=== PATIENT | male | born 1950 | race Caucasian/White ===

== ENCOUNTER → 2016-04-29 | Outpatient (CLI) | payer MEDICARE ==
[~2016-04-29] MED LIST: LISI40TA PO; NITR1SUB3 SL; PHEN100C PO; PRAV20TA2 PO
[2016-04-29 13:35] LABS: AUTOMATED NEUTROPHIL # 3.7 TH/MM3 (1.8-7.7); BASOPHIL # 0.1 TH/MM3 (0-0.2); EOSINOPHIL # 0.5 TH/MM3 (0-0.4); EOSINOPHIL % 7.4 % (0.0-4.0); HEMATOCRIT 43.5 % (39.0-51.0); HEMO FLAGS DIFF FINAL; LYMPH % 25.5 % (9.0-44.0); LYMPHOCYTE # 1.7 TH/MM3 (1.0-4.8); MEAN CELL VOLUME 93.1 FL (80.0-100.0); MEAN CORPUSCULAR HEMOGLOBIN 31.4 PG (27.0-34.0); MEAN CORPUSCULAR HGB CONC 33.7 % (32.0-36.0); MONO % 11.3 % (0.0-8.0); NEUT % 54.8 % (16.0-70.0); PLATELET COUNT 346 TH/MM3 (150-450); RED BLOOD COUNT 4.67 MIL/MM3 (4.50-5.90); RED CELL DISTRIBUTION WIDTH 13.3 % (11.6-17.2); WHITE BLOOD COUNT 6.7 TH/MM3 (4.0-11.0)
--- NOTE | 2016-04-30 15:40 | EKG ---
Date Performed: 04/29/2016 Time Performed: 13:56:04 PTAGE: 66 years EKG: Sinus rhythm WITH FIRST DEGREE AV BLOCK ABNORMAL ECG PREVIOUS TRACING : 06/17/2012 16.14 Compared to prior tracing no significant change DOCTOR: Bria Bui Interpretating Date/Time 04/30/2016 15:39:06
== END ==
LOC: HCAV 13:07
PROVIDERS: ATTEND Ophthalmology
DX: Z01.810 Encounter for preprocedural cardiovascular examination (principal); I10 Essential (primary) hypertension; H25.12 Age-related nuclear cataract, left eye
CPT/HCPCS: 36415; 85025; 93005

== ENCOUNTER → 2016-06-23 | Outpatient (CLI) | payer MEDICARE ==
[2016-06-23 13:00] LABS: AUTOMATED NEUTROPHIL # 2.8 TH/MM3 (1.8-7.7); BASOPHIL # 0.1 TH/MM3 (0-0.2); BASOPHIL % 1.1 % (0.0-2.0); EOSINOPHIL # 0.5 TH/MM3 (0-0.4); EOSINOPHIL % 8.5 % (0.0-4.0); HEMATOCRIT 42.9 % (39.0-51.0); HEMO FLAGS DIFF FINAL; LYMPH % 32.3 % (9.0-44.0); LYMPHOCYTE # 1.9 TH/MM3 (1.0-4.8); MEAN CELL VOLUME 93.5 FL (80.0-100.0); MEAN CORPUSCULAR HEMOGLOBIN 31.8 PG (27.0-34.0); MONO % 9.9 % (0.0-8.0); NEUT % 48.2 % (16.0-70.0); PLATELET COUNT 359 TH/MM3 (150-450); RED BLOOD COUNT 4.59 MIL/MM3 (4.50-5.90); RED CELL DISTRIBUTION WIDTH 13.6 % (11.6-17.2); WHITE BLOOD COUNT 5.8 TH/MM3 (4.0-11.0)
== END ==
LOC: CLAB 12:35
PROVIDERS: ATTEND Ophthalmology
DX: H25.11 Age-related nuclear cataract, right eye (principal)
CPT/HCPCS: 36415; 85025

== ENCOUNTER 2016-10-08 13:49 | Emergency (ER) | payer MEDICARE ==
[~2016-10-08] VITALS: Ht 182.9 cm; Wt 73.0 kg
[2016-10-08 15:44] VITALS: BP 160/88; PULSE 68; RESP 16; TEMP 97.4; O2SAT 98
--- NOTE | 2016-10-08 16:14 | PD ---
HPI Chief Complaint: Musculoskeletal Complaint Time Seen by Provider: 15:45 Travel History International Travel<30 days: No Contact w/Intl Traveler<30days: No Traveled to known affect area: No History of Present Illness HPI 66-year-old male presents to the emergency room for evaluation of right volar wrist pain, redness, and swelling that started 2 days ago. Patient denies any trauma or injury. States pain is localized to the distal, volar wrist and radiates up his entire right upper extremity, into the axilla. Pain is worse when he puts pressure on the area. He denies shortness of breath, chest pain, or history of DVT or PE. He has limited range of motion of the right upper extremity due to a stroke several years ago. He is not on any blood thinners. PFSH Past Medical History Arthritis: Yes (DEGENERATIVE HIP) Heart Rhythm Problems: No Cancer: No Cardiovascular Problems: Yes (CHEST PAIN) High Cholesterol: Yes Chest Pain: Yes Congestive Heart Failure: No Cerebrovascular Accident: No Diminished Hearing: No Endocrine: No Genitourinary: No Headaches: No Hypertension: Yes Immune Disorder: No Implanted Vascular Access Dvce: No Musculoskeletal: No Neurologic: Yes Psychiatric: No Reproductive: No Respiratory: No Migraines: No Seizures: Yes Past Surgical History Abdominal Surgery: No Cardiac Surgery: No Ear Surgery: No Endocrine Surgery: No Eye Surgery: No Genitourinary Surgery: No Gynecologic Surgery: No Neurologic Surgery: Yes (PLATE ON SKULL 1969') Oral Surgery: Yes Thoracic Surgery: No Other Surgery: Yes Social History Alcohol Use: No Tobacco Use: No Substance Use: No Allergies-Medications (Allergen,Severity, Reaction): Coded Allergies: MRI PRECAUTION (Verified Adverse Reaction, Severe, 02/19/16) Metal in head. Reported Meds & Prescriptions Reported Meds & Active Scripts Active Pravastatin 20 Mg Tab 20 Mg PO DAILY Phenytoin Extended 100 Mg Cap 100 Mg PO TID Lisinopril 40 Mg Tab 40 Mg PO DAILY Reported Nitroglycerin SL (Nitroglycerin) 0.4 Mg Subl 0.4 Mg SL DIRECTED PRN ONE TABLET UNDER THE TONGUE NEEDED FOR CHEST PAIN, MAY REPEAT EVERY FIVE MINUTES FOR A TOTAL OF 3 DOSES OR CALL 911 IF NO RELIEF Review of Systems Except as stated in HPI: all other systems reviewed are Neg Physical Exam Narrative GENERAL: Well-nourished, well-developed male in no acute distress. Afebrile. Ambulatory. SKIN: Focused skin assessment warm/dry. No significant warmth. Mild erythema of the right distal, volar wrist. No collateral, superficial veins present. HEAD: Normocephalic. EYES: No scleral icterus. No injection or drainage. NECK: Supple, trachea midline. No JVD or lymphadenopathy. CARDIOVASCULAR: Regular rate and rhythm without murmurs, gallops, or rubs. RESPIRATORY: Breath sounds equal bilaterally. No accessory muscle use. MUSCULOSKELETAL: No cyanosis. There is mild, localized and pitting edema to the right volar wrist. There is tenderness to palpation over the edema. Limited range of motion of the right hand because of previous stroke. Data Data Last Documented VS Vital Signs Date Time Temp Pulse Resp B/P (MAP) Pulse Ox O2 Delivery O2 Flow Rate FiO2 10/08/16 15:44 97.4 68 16 160/88 (112) 98 Orders Orders Electrocardiogram (10/08/16 14:04) Us Arm Venous Doppler (10/08/16 ) Complete Blood Count With Diff (10/08/16 15:58) Basic Metabolic Panel (Bmp) (10/08/16 15:58) D-Dimer (10/08/16 15:58) Labs Laboratory Tests Test 10/08/16 15:41 White Blood Count 7.5 TH/MM3 Red Blood Count 5.03 MIL/MM3 Hemoglobin 15.0 GM/DL Hematocrit 47.1 % Mean Corpuscular Volume 93.7 FL Mean Corpuscular Hemoglobin 29.9 PG Mean Corpuscular Hemoglobin Concent 31.9 % Red Cell Distribution Width 12.8 % Platelet Count 377 TH/MM3 Mean Platelet Volume 6.9 FL Neutrophils (%) (Auto) 64.2 % Lymphocytes (%) (Auto) 21.1 % Monocytes (%) (Auto) 6.2 % Eosinophils (%) (Auto) 7.8 % Basophils (%) (Auto) 0.7 % Neutrophils # (Auto) 4.7 TH/MM3 Lymphocytes # (Auto) 1.6 TH/MM3 Monocytes # (Auto) 0.5 TH/MM3 Eosinophils # (Auto) 0.6 TH/MM3 Basophils # (Auto) 0.1 TH/MM3 CBC Comment DIFF FINAL Differential Comment D-Dimer Quantitative (PE/DVT) 0.65 MG/L FEU Blood Urea Nitrogen 23 MG/DL Creatinine 0.94 MG/DL Random Glucose 94 MG/DL Calcium Level 9.4 MG/DL Sodium Level 138 MEQ/L Potassium Level 4.3 MEQ/L Chloride Level 104 MEQ/L Carbon Dioxide Level 26.6 MEQ/L Anion Gap 7 MEQ/L Estimat Glomerular Filtration Rate 80 ML/MIN MDM Medical Decision Making Medical Screen Exam Complete: Yes Emergency Medical Condition: Yes Medical Record Reviewed: Yes Differential Diagnosis Superficial thrombophlebitis, early cellulitis, contusion Narrative Course 66-year-old male presents to the emergency room for evaluation of right volar wrist redness and swelling for the past 2 days. No trauma or injury to the area. Patient has some risk factors for deep and superficial thrombus. Right upper extremity is neurovascularly intact with 2+ radial pulse. There is no crepitus. He has full range of motion but strength is limited secondary to previous traumatic brain injury. CBC and BMP are unremarkable. Ultrasound is negative for acute abnormality. This could be early cellulitis. I spoke to my attending physician, Dr. Gale, who evaluated the patient and agrees with diagnosis. Patient will be discharged with clindamycin and told to follow up with a primary care physician or return for worsening symptoms. He understands and agrees to plan. Diagnosis Primary Impression: Cellulitis of wrist Referrals: Primary Care Physician Additional Instructions: Rest and drink plenty of fluids. Clindamycin as directed, until gone. Take Tylenol as directed, as needed for pain. Apply ice to the affected area for 20 minutes at a time, as needed for pain and swelling. Follow-up with a primary care physician. Return to the emergency room for worsening symptoms. Med/Other Pt SpecificInfo: Prescription(s) given Disposition: DISCHARGE HOME Condition: Stable Tracey Ward Oct 08, 2016 16:14
[2016-10-08 16:19] LABS: AUTOMATED NEUTROPHIL # 4.7 TH/MM3 (1.8-7.7); BASOPHIL # 0.1 TH/MM3 (0-0.2); BASOPHIL % 0.7 % (0.0-2.0); EOSINOPHIL # 0.6 TH/MM3 (0-0.4); EOSINOPHIL % 7.8 % (0.0-4.0); HEMATOCRIT 47.1 % (39.0-51.0); HEMO FLAGS DIFF FINAL; LYMPH % 21.1 % (9.0-44.0); LYMPHOCYTE # 1.6 TH/MM3 (1.0-4.8); MEAN CELL VOLUME 93.7 FL (80.0-100.0); MEAN CORPUSCULAR HEMOGLOBIN 29.9 PG (27.0-34.0); MEAN CORPUSCULAR HGB CONC 31.9 % (32.0-36.0); MONO % 6.2 % (0.0-8.0); NEUT % 64.2 % (16.0-70.0); PLATELET COUNT 377 TH/MM3 (150-450); RED BLOOD COUNT 5.03 MIL/MM3 (4.50-5.90); RED CELL DISTRIBUTION WIDTH 12.8 % (11.6-17.2); WHITE BLOOD COUNT 7.5 TH/MM3 (4.0-11.0)
[2016-10-08 16:31] LABS: POTASSIUM 4.3 MEQ/L (3.5-5.1)
[2016-10-08 16:35] LABS: BICARBONATE 26.6 MEQ/L (21.0-32.0)
--- NOTE | 2016-10-08 17:20 | RADRPT ---
EXAM DATE/TIME: 10/08/2016 16:41 [facility] COMPARISON: No previous studies available for comparison. INDICATIONS : Right arm swelling. MEDICAL HISTORY : Hypercholesterolemia. Hypertension. Arthritis. Glasses. Dentures. Seizures. Syncope. Head trauma. Num bness. Chest pain. Hyperlipidemia. SURGICAL HISTORY : Craniotomy. Oral surgery. ENCOUNTER: Initial ACUITY: 1 day PAIN SCORE: 4/10 LOCATION: Right arm. FINDINGS: There is spontaneous flow documented in the brachial, basilic, cephalic, axillary, and subclavian vei ns. The vessels are compressible and augmentation response is documented. No filling defects are se en. The flow is phasic with respiration. Direction of flow in the jugular vein is caudal. CONCLUSION: No DVT or superficial venous thrombosis is identified in the right upper extremity. Kye Callahan MD on October 08, 2016 at 17:18 Board Certified Radiologist. This report was verified electronically.
[2016-10-08] MEDS ORDERED: CLIN1CAP6 PO (17:34)
[2016-10-08 17:47] VITALS: BP 170/96
--- NOTE | 2016-10-09 18:40 | EKG ---
Date Performed: 10/08/2016 Time Performed: 14:06:57 PTAGE: 66 years EKG: Sinus rhythm WITH FIRST DEGREE AV BLOCK ABNORMAL ECG PREVIOUS TRACING : 04/29/2016 13.56 Compared to prior tracing no significant change DOCTOR: Luis Stahl Interpretating Date/Time 10/09/2016 18:38:19
[2016-10-23] MEDS ORDERED: PHEN100C PO ×2 (08:22→08:23)
[2016-11-17] MEDS ORDERED: PHEN100C PO (12:09)
[2016-12-01] MEDS ORDERED: ASPI81CH37 CHEW (19:25)
== END 2016-10-08 17:48 | disposition home or self-care (01) ==
LOC: PHED 13:49 → PHEFT 17:48
DX: L03.113 Cellulitis of right upper limb (principal); E78.00 Pure hypercholesterolemia, unspecified; I10 Essential (primary) hypertension
CPT/HCPCS: 80048; 85025; 85379; 93005; 93971; 99285

== ENCOUNTER 2017-04-28 07:10 | Inpatient (IN) | payer MEDICARE ==
[2017-04-28] VITALS (8 sets, daily range): BP systolic 150–175; BP diastolic 69–92; PULSE 66–90; RESP 16–20; TEMP 96.9–99.5; O2SAT 92–99
[~2017-04-28] VITALS: Ht 182.9 cm; Wt 75.6 kg
[~2017-04-28 07:10] MED LIST changes: +ASPI81CH6 CHEW; +CLIN300C5 PO
[2017-04-28 07:41] LABS: AUTOMATED NEUTROPHIL # 4.1 TH/MM3 (1.8-7.7); BASOPHIL % 0.7 % (0.0-2.0); EOSINOPHIL # 0.2 TH/MM3 (0-0.4); EOSINOPHIL % 2.7 % (0.0-4.0); HEMATOCRIT 43.1 % (39.0-51.0); HEMOGLOBIN 14.3 GM/DL (13.0-17.0); LYMPH % 19.4 % (9.0-44.0); LYMPHOCYTE # 1.2 TH/MM3 (1.0-4.8); MEAN CELL VOLUME 89.8 FL (80.0-100.0); MEAN CORPUSCULAR HEMOGLOBIN 29.8 PG (27.0-34.0); MEAN CORPUSCULAR HGB CONC 33.2 % (32.0-36.0); MEAN PLATELET VOLUME 6.8 FL (7.0-11.0); MONO % 9.2 % (0.0-8.0); MONOCYTE # 0.6 TH/MM3 (0-0.9); PLATELET COUNT 256 TH/MM3 (150-450); RED CELL DISTRIBUTION WIDTH 12.4 % (11.6-17.2); WHITE BLOOD COUNT 6.1 TH/MM3 (4.0-11.0)
--- NOTE | 2017-04-28 07:44 | PD ---
HPI Chief Complaint: Abdominal Pain Time Seen by Provider: 07:35 Travel History International Travel<30 days: No Contact w/Intl Traveler<30days: No Traveled to known affect area: No History of Present Illness HPI This patient complains of abdominal pain. Severity is moderate. Duration is 2 days. His worst pain is seems to be in the right upper quadrant is also having right lower quadrant pain. No left-sided symptoms. He's had nausea and vomiting. Did not eat yesterday or today. No diarrhea. He does not have alcohol abuse or liver or gallbladder or pancreas disease per his report. No exacerbating factors. No alleviating factors. PFSH Past Medical History Arthritis: Yes (DEGENERATIVE HIP) Heart Rhythm Problems: No Cancer: No Cardiovascular Problems: Yes (htn on meds) High Cholesterol: Yes Chest Pain: Yes Congestive Heart Failure: No Cerebrovascular Accident: No Diminished Hearing: No Endocrine: No Genitourinary: No Headaches: No Hypertension: Yes Immune Disorder: No Implanted Vascular Access Dvce: No Musculoskeletal: No Neurologic: Yes Psychiatric: No Reproductive: No Respiratory: No Migraines: No Seizures: Yes Influenza Vaccination: No Past Surgical History Abdominal Surgery: No Cardiac Surgery: No Ear Surgery: No Endocrine Surgery: No Eye Surgery: No Genitourinary Surgery: No Gynecologic Surgery: No Neurologic Surgery: Yes (PLATE ON SKULL 1969'S) Oral Surgery: Yes Thoracic Surgery: No Other Surgery: Yes Social History Alcohol Use: No Tobacco Use: No Substance Use: No Allergies-Medications (Allergen,Severity, Reaction): Coded Allergies: MRI PRECAUTION (Verified Adverse Reaction, Severe, 04/28/17) Metal in head. Reported Meds & Prescriptions Reported Meds & Active Scripts Active Lisinopril 40 Mg Tab 40 Mg PO DAILY Aspirin Low Dose (Aspirin) 81 Mg Chew 81 Mg CHEW DAILY 30 Days Phenytoin Extended 100 Mg Cap 100 Mg PO TID Pravastatin 20 Mg Tab 20 Mg PO DAILY Reported Nitroglycerin SL (Nitroglycerin) 0.4 Mg Subl 0.4 Mg SL DIRECTED PRN ONE TABLET UNDER THE TONGUE NEEDED FOR CHEST PAIN, MAY REPEAT EVERY FIVE MINUTES FOR A TOTAL OF 3 DOSES OR CALL 911 IF NO RELIEF Review of Systems General / Constitutional: No: Fever Eyes: No: Visual changes HENT: No: Headaches Cardiovascular: No: Chest Pain or Discomfort Respiratory: No: Shortness of Breath Gastrointestinal: Positive: Nausea, Vomiting, Abdominal Pain Genitourinary: No: Dysuria Musculoskeletal: No: Pain Skin: No Rash Neurologic: No: Weakness Psychiatric: No: Depression Endocrine: No: Polydipsia Hematologic/Lymphatic: No: Easy Bruising Physical Exam Narrative GENERAL: Well-nourished, well-developed patient in no apparent distress. SKIN: Focused skin assessment reveals no rash and nodules. Skin is Warm and dry. HEAD: Atraumatic. Normocephalic. EYES: Pupils equal and round. No scleral icterus. No injection or drainage. ENT: No nasal bleeding or discharge. Mucous membranes pink and moist. NECK: Trachea midline. No JVD. CARDIOVASCULAR: Regular rate and rhythm. No murmur appreciated. RESPIRATORY: No accessory muscle use. Clear to auscultation. Breath sounds equal bilaterally. GASTROINTESTINAL: Abdomen soft, right upper quadrant is very tender. There is also some tenderness in the right lower quadrant. No rebound or guarding. Hepatic and splenic margins not palpable. MUSCULOSKELETAL: No obvious deformities. No clubbing. No cyanosis. No edema. NEUROLOGICAL: Awake and alert. No obvious cranial nerve deficits. Motor grossly within normal limits. Normal speech. PSYCHIATRIC: Appropriate mood and affect; insight and judgment normal. Data Data Last Documented VS Vital Signs Date Time Temp Pulse Resp B/P (MAP) Pulse Ox O2 Delivery O2 Flow Rate FiO2 04/28/17 07:56 66 18 155/90 (111) 99 Room Air 04/28/17 07:17 97.4 Orders Orders Complete Blood Count With Diff (04/28/17 07:19) Comprehensive Metabolic Panel (04/28/17 07:19) Urinalysis - C+S If Indicated (04/28/17 07:19) Iv Access Insert/Monitor (04/28/17 07:19) Oxygen Administration (04/28/17 07:19) Oximetry (04/28/17 07:19) Lipase (04/28/17 07:19) Troponin I (04/28/17 07:19) Act Partial Throm Time (Ptt) (04/28/17 07:40) Prothrombin Time / Inr (Pt) (04/28/17 07:40) Ondansetron Inj (Zofran Inj) (04/28/17 07:45) Sodium Chlor 0.9% 1000 Ml Inj (Ns 1000 M (04/28/17 07:45) Morphine Inj (Morphine Inj) (04/28/17 07:45) Ct Abd/Pel W Iv Contrast(Rout) (04/28/17 ) Iohexol 350 Inj (Omnipaque 350 Inj) (04/28/17 08:22) Admit Order (Ed Use Only) (04/28/17 10:40) Labs Laboratory Tests Test 04/28/17 07:30 04/28/17 07:48 04/28/17 09:10 White Blood Count 6.1 TH/MM3 Red Blood Count 4.80 MIL/MM3 Hemoglobin 14.3 GM/DL Hematocrit 43.1 % Mean Corpuscular Volume 89.8 FL Mean Corpuscular Hemoglobin 29.8 PG Mean Corpuscular Hemoglobin Concent 33.2 % Red Cell Distribution Width 12.4 % Platelet Count 256 TH/MM3 Mean Platelet Volume 6.8 FL Neutrophils (%) (Auto) 68.0 % Lymphocytes (%) (Auto) 19.4 % Monocytes (%) (Auto) 9.2 % Eosinophils (%) (Auto) 2.7 % Basophils (%) (Auto) 0.7 % Neutrophils # (Auto) 4.1 TH/MM3 Lymphocytes # (Auto) 1.2 TH/MM3 Monocytes # (Auto) 0.6 TH/MM3 Eosinophils # (Auto) 0.2 TH/MM3 Basophils # (Auto) 0.0 TH/MM3 CBC Comment DIFF FINAL Differential Comment Blood Urea Nitrogen 25 MG/DL Creatinine 1.20 MG/DL Random Glucose 128 MG/DL Total Protein 8.0 GM/DL Albumin 3.7 GM/DL Calcium Level 8.8 MG/DL Alkaline Phosphatase 454 U/L Aspartate Amino Transf (AST/SGOT) 256 U/L Alanine Aminotransferase (ALT/SGPT) 581 U/L Total Bilirubin 1.0 MG/DL Sodium Level 138 MEQ/L Potassium Level 3.6 MEQ/L Chloride Level 103 MEQ/L Carbon Dioxide Level 24.8 MEQ/L Anion Gap 10 MEQ/L Estimat Glomerular Filtration Rate 60 ML/MIN Troponin I LESS THAN 0.02 NG/ML Lipase 211 U/L Prothrombin Time 11.8 SEC Prothromb Time International Ratio 1.2 RATIO Activated Partial Thromboplast Time 24.3 SEC Urine Collection Type CLEAN CATCH Urine Color YELLOW Urine Turbidity SL CLOUDY Urine pH 7.5 Urine Specific [place] LESS/EQUAL 1.005 Urine Protein NEG mg/dL Urine Glucose (UA) NEG mg/dL Urine Ketones NEG mg/dL Urine Occult Blood TRACE Urine Nitrite NEG Urine Bilirubin NEG Urine Urobilinogen 0.2 MG/DL Urine Leukocyte Esterase NEG Urine RBC 0-3 /hpf Urine WBC 0-2 /hpf Urine Squamous Epithelial Cells 0-5 /hpf Urine Amorphous Sediment FEW Microscopic Urinalysis Comment CULT NOT INDICATED Urine Collection Time 0910 MDM Medical Decision Making Medical Screen Exam Complete: Yes Emergency Medical Condition: Yes Medical Record Reviewed: Yes Differential Diagnosis Cholecystitis, hepatitis, appendicitis Narrative Course I have reviewed the patient's electronic medical record. Patient has 2 days of nausea vomiting abdominal pain. He certainly could have surgical condition such as acute cholecystitis or appendicitis. I've ordered extensive workup to include labs and CT of abdomen and pelvis I gave him morphine and Zofran and IV fluid CBC is normal and metabolic studies are normal LFTs show elevation of LFTs in the 3-400 range with normal bilirubin CT scan reveals what appears to be choledocholithiasis which would explain his clinical picture I reviewed with admitting physician Dr. De La Rosa as well as GI physician who will perform ERCP at the main hospital and requests transfer to get the ERCP done Diagnosis Primary Impression: Cholelithiasis with choledocholithiasis Additional Impression: Transaminitis Admitting Information Admitting Physician Requests: Admit Rehan Chirinos MD Apr 28, 2017 07:44
[2017-04-28] MEDS ORDERED: ONDANSETRON HCL 4 MG/2 ML VIAL IVP ONE (07:45)
[2017-04-28] MEDS ORDERED: MORPHINE SULFATE 4 MG/ML INJ IV PUSH ONE (07:45)
[2017-04-28] MEDS ORDERED: SODIUM CHLOR 0.9% 1000 ML INJ 1,000 ML IV ONE (07:45)
[2017-04-28 07:46] LABS: CHLORIDE 103 MEQ/L (98-107); SODIUM (NA) 138 MEQ/L (136-145)
[2017-04-28 07:49] LABS: CALCIUM 8.8 MG/DL (8.5-10.1)
[2017-04-28 07:50] LABS: ALBUMIN 3.7 GM/DL (3.4-5.0); BICARBONATE 24.8 MEQ/L (21.0-32.0); BLOOD UREA NITROGEN 25 MG/DL (7-18); GLUCOSE,RANDOM 128 MG/DL (74-106)
[2017-04-28 07:53] LABS: ALT (GPT) 581 U/L (12-78); AST (GOT) 256 U/L (15-37); GLOMERULAR FILTRATION RATE 60 ML/MIN (>89)
[2017-04-28 07:56] LABS: ALKALINE PHOSPHATASE 454 U/L (45-117)
[2017-04-28 07:58] LABS: TROPONIN I LESS THAN 0.02 NG/ML (0.02-0.05)
[2017-04-28] MEDS ORDERED: IOHEXOL 350 MG/ML 10 ML VIAL (for RAD DIAG) IVCONTRAST ONE (08:22)
[2017-04-28 08:23] LABS: INTERNATIONAL NORMALIZED RATIO 1.2 RATIO; PROTHROMBIN TIME - PATIENT 11.8 SEC (9.8-11.6)
--- NOTE | 2017-04-28 08:36 | RADRPT ---
EXAM DATE/TIME: 04/28/2017 08:13 [facility] COMPARISON: CT ABDOMEN & PELVIS W CONTRAST, June 17, 2012, 9:32. INDICATIONS : Right upper and lower quadrant pain with nausea and vomiting x 2 days. IV CONTRAST: 85 cc Omnipaque 350 (iohexol) IV ORAL CONTRAST: No oral contrast ingested. RADIATION DOSE: 7.0 CTDIvol (mGy) MEDICAL HISTORY : Seizures. Hypertension. Traumatic brain injury. SURGICAL HISTORY : Craniotomy. ENCOUNTER: Initial ACUITY: 2 days PAIN SCALE: 7/10 LOCATION: Right upper quadrant TECHNIQUE: Volumetric scanning of the abdomen and pelvis was performed. Using automated exposure control and ad justment of the mA and/or kV according to patient size, radiation dose was kept as low as reasonably achievable to obtain optimal diagnostic quality images. DICOM format image data is available electro nically for review and comparison. FINDINGS: LOWER LUNGS: The visualized lower lungs are clear. LIVER: Scattered hepatic cysts with a dominant stable 2.4 cm cyst in the left lobe adjacent to the falciform ligament. Diffuse intrahepatic ductal dilatation. Prominent common bile duct measuring up to 13 mm c entrally extending to near the ampulla. The gallbladder is prominent in size with redemonstration of gallstones. SPLEEN: Normal size without lesion. PANCREAS: Unremarkable in appearance. No definitive pancreatic head mass, tail atrophy or ductal dilatation. KIDNEYS: Kidneys demonstrate symmetrical enhancement without evidence for hydronephrosis. Bilateral cysts are again demonstrated some are too small to fully characterize. No radiopaque renal calculi or hydroneph rosis. ADRENAL GLANDS: Within normal limits. VASCULAR: Ectasia of the infrarenal aorta measuring up to 2.5 cm distally. BOWEL/MESENTERY: The stomach, small bowel, and colon demonstrate no acute abnormality. There is no free intraperitone al air or fluid. ABDOMINAL WALL: Small fat containing periumbilical anterior abdominal wall hernia. RETROPERITONEUM: There is no lymphadenopathy. BLADDER: No wall thickening or mass. REPRODUCTIVE: Prostate is very prominent in size. INGUINAL: There is no lymphadenopathy or hernia. MUSCULOSKELETAL: Within normal limits for patient age. CONCLUSION: 1. Cholelithiasis with enlarged gallbladder and diffuse intra-and extra hepatic biliary ductal dilata tion extending to the region of the ampulla consistent with obstruction at the level of the ampulla. No definite pancreatic mass or pancreatic ductal dilatation. Suspect choledocholithiasis or distal CB D stricture. Further evaluation may be performed with MRCP or ERCP as clinically appropriate. 2. Stable ancillary findings including hepatic and renal cysts some of which are too small to fully c haracterize, ectasia of the distal abdominal aorta, small fat containing periumbilical hernia, and pr ominent prostate. Carlos Trotter MD on April 28, 2017 at 8:24 Board Certified Radiologist. This report was verified electronically.
[2017-04-28 09:22] LABS: BILIRUBIN, URINE NEG (NEG); BLOOD, URINE TRACE (NEG); GLUCOSE,URINE NEG (NEG); KETONE, URINE NEG (NEG); NITRITE,URINE NEG (NEG); PH, URINE 7.5 (5.0-8.5); URINE COLOR YELLOW (YELLW/STRAW); URINE LEUKOCYTE ESTERASE NEG (NEG)
[2017-04-28 09:32] LABS: AMORPHOUS SEDIMENT, URINE FEW; RBC, URINE 0-3 /hpf (0-3); SQUAMOUS EPITHELIAL CELL URINE 0-5 /hpf (0-5); WBC, URINE 0-2 /hpf (0-5)
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
[2017-04-28] MEDS ORDERED: MAGNESIUM HYDROXIDE SUSP 30 ML CUP PO PRN (16:30)
[2017-04-28] MEDS: D5-NS + KCL 40 MEQ INJ 1,000 ML IV SCH ×2 (16:30→20:51)
[2017-04-28] MEDS ORDERED: SENNOSIDES 8.6 MG TAB PO PRN (16:30)
[2017-04-28] MEDS ORDERED: ONDANSETRON HCL 4 MG/2 ML VIAL IV PUSH PRN (16:30)
[2017-04-28] MEDS ORDERED: NALOXONE HCL 0.4 MG/ML AMP IV PUSH PRN (16:30)
[2017-04-28] MEDS ORDERED: BISACODYL 10 MG SUPP RECTAL PRN (16:30)
[2017-04-28] MEDS ORDERED: LACTULOSE SYRUP 20 GM/30 ML CUP PO PRN (16:30)
[2017-04-28] MEDS ORDERED: ENALAPRILAT 1.25 MG/ML VIAL IV PUSH PRN (17:00)
[2017-04-28] MEDS: PHENYTOIN SODIUM 100 MG CAP PO SCH (17:08)
[2017-04-28] MEDS: MORPHINE SULFATE 2 MG/ML INJ IV PUSH PRN ×2 (17:12→17:39)
[2017-04-28] MEDS: LISINOPRIL 20 MG TAB PO SCH (17:40)
--- NOTE | 2017-04-28 18:18 | RADRPT ---
EXAM DATE/TIME: 04/28/2017 17:23 [facility] COMPARISON: No previous studies available for comparison. INDICATIONS : Evaluate lung status. Short of breath. Right upper and lower quadrant pain with nausea and vomiting x 2 days. MEDICAL HISTORY : Seizures. Hypertension. Traumatic brain injury. SURGICAL HISTORY : Craniotomy. ENCOUNTER: Initial ACUITY: 2 days PAIN SCORE: 4/10 LOCATION: Bilateral chest FINDINGS: PA and lateral views of the chest demonstrate the lungs to be symmetrically aerated without evidence of mass, infiltrate or effusion. The cardiomediastinal contours are unremarkable. Osseous structure s are intact. CONCLUSION: No evidence of acute cardiopulmonary disease. Kye Penn MD on April 28, 2017 at 18:16 Board Certified Radiologist. This report was verified electronically.
[2017-04-28] MEDS: DOCUSATE SODIUM 50 MG/SENNA 8.6 MG TAB PO SCH (20:52)
[2017-04-28] MEDS: SODIUM CHLORIDE 0.9% FLUSH 10 ML FLUSH IV FLUSH SCH (20:53)
[2017-04-28] MEDS ORDERED: SODIUM CHLORID 0.9% 500 ML IV PRN (23:15)
[2017-04-28] MEDS ORDERED: METOPROLOL TARTRATE 25 MG TAB PO PRN (23:15)
[2017-04-28] MEDS ORDERED: POVIDONE IODINE 5% (ANTISEPSIS KIT) 4 APPLICATIONS EACH NARE PRN (23:15)
[2017-04-28] MEDS ORDERED: CHLORHEXIDINE GLUCONATE 2 % 1 PACK (2 CLOTHS) TOPICAL PRN (23:15)
[2017-04-28] MEDS ORDERED: LACTATED RINGER'S 1000 ML IV PRN (23:15)
[2017-04-29] VITALS: BP 141/76; PULSE 74; RESP 18; TEMP 98.9; O2SAT 92
[2017-04-29] MEDS: MORPHINE SULFATE 4 MG/ML INJ IV PUSH PRN ×3 (00:08→16:59)
[2017-04-29] MEDS: D5-NS + KCL 40 MEQ INJ 1,000 ML IV SCH ×2 (04:40→23:14)
[2017-04-29 06:13] LABS: BASOPHIL # 0.1 TH/MM3 (0-0.2); BASOPHIL % 0.8 % (0.0-2.0); EOSINOPHIL # 0.3 TH/MM3 (0-0.4); EOSINOPHIL % 4.5 % (0.0-4.0); HEMATOCRIT 43.3 % (39.0-51.0); HEMOGLOBIN 14.7 GM/DL (13.0-17.0); LYMPH % 25.7 % (9.0-44.0); LYMPHOCYTE # 1.9 TH/MM3 (1.0-4.8); MEAN CORPUSCULAR HEMOGLOBIN 31.1 PG (27.0-34.0); MEAN CORPUSCULAR HGB CONC 33.8 % (32.0-36.0); MEAN PLATELET VOLUME 6.9 FL (7.0-11.0); PLATELET COUNT 238 TH/MM3 (150-450); RED BLOOD COUNT 4.71 MIL/MM3 (4.50-5.90); RED CELL DISTRIBUTION WIDTH 13.4 % (11.6-17.2); WHITE BLOOD COUNT 7.4 TH/MM3 (4.0-11.0)
[2017-04-29 06:41] LABS: ALBUMIN 3.6 GM/DL (3.4-5.0); AST (GOT) 66 U/L (15-37); BLOOD UREA NITROGEN 19 MG/DL (7-18); CHLORIDE 109 MEQ/L (98-107); CREATININE 1.08 MG/DL (0.60-1.30); GLOMERULAR FILTRATION RATE 68 ML/MIN (>89); GLUCOSE,RANDOM 104 MG/DL (74-106); MAGNESIUM 2.2 MG/DL (1.5-2.5); SODIUM (NA) 140 MEQ/L (136-145)
[2017-04-29 06:42] LABS: ALT (GPT) 332 U/L (12-78); PHOSPHORUS 2.7 MG/DL (2.5-4.9)
[2017-04-29 06:44] LABS: ALKALINE PHOSPHATASE 330 U/L (45-117); TOTAL BILIRUBIN ADULT 0.8 MG/DL (0.2-1.0); TOTAL PROTEIN 7.3 GM/DL (6.4-8.2)
[2017-04-29 08:00] VITALS: BP 162/71; PULSE 82; RESP 20; TEMP 97.7; O2SAT 97
[2017-04-29] MEDS: LISINOPRIL 20 MG TAB PO SCH (08:20)
[2017-04-29] MEDS: PHENYTOIN SODIUM 100 MG CAP PO SCH ×3 (08:20→17:06)
[2017-04-29] MEDS: SODIUM CHLORIDE 0.9% FLUSH 10 ML FLUSH IV FLUSH SCH ×2 (08:20→20:56)
[2017-04-29] MEDS: DOCUSATE SODIUM 50 MG/SENNA 8.6 MG TAB PO SCH ×2 (08:20→20:56)
[2017-04-29] MEDS: ASPIRIN 81 MG CHEW TAB CHEW SCH (08:20)
[2017-04-29] MEDS: PRAVASTATIN SOD 20 MG TAB PO SCH (08:20)
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
--- NOTE | 2017-04-29 09:42 | PD.CONS ---
HPI History of Present Illness This is a 67 year old male who presented with abd pain. 4 days ago he started having worsening pain in his RUQ along with n/v. Denies jaundice, fevers, weight loss, diarrhea, blood in emesis, blood in stool or dark tarry stool. never had this pain before. He thinks he had an EGD once 35 years ago for an ulcer. Never had colonoscopy. Takes medication to prevent seizures after a skull fracture years ago but has never actually had a seizure. (Jessica Clemons) PFSH Past Medical History skull fracture seizure prophylaxis Past Surgical History cataracts (Jessica Clemons) Coded Allergies: MRI PRECAUTION (Verified Adverse Reaction, Severe, 04/28/17) Metal in head. Family History none Social History denies toxic habits (Jessica Clemons) Review of Systems Constitutional: DENIES: Fever, Weight loss Endocrine: DENIES: Polydipsia Eyes: DENIES: Blurred vision Ears, nose, mouth, throat: DENIES: Hearing loss Respiratory: DENIES: Cough Cardiovascular: DENIES: Chest pain Gastrointestinal: COMPLAINS OF: Abdominal pain, Nausea, Vomiting, DENIES: Black stools, Bloody stools, Constipation, Diarrhea, Swelling of Abdomen, Hematemesis Genitourinary: DENIES: Urinary incontinence Musculoskeletal: DENIES: Muscle aches Integumentary: DENIES: Jaundice Hematologic/lymphatic: DENIES: Bruising Immunologic/allergic: DENIES: Eczema Neurologic: DENIES: Abnormal gait Psychiatric: DENIES: Confusion (Jessica Clemons) GI Exam Vitals I&O Vital Signs Date Time Temp Pulse Resp B/P (MAP) Pulse Ox O2 Delivery O2 Flow Rate FiO2 04/29/17 08:00 97.7 82 20 162/71 (101) 97 04/29/17 00:00 98.9 74 18 141/76 (97) 92 04/28/17 20:00 99.5 71 18 153/80 (104) 94 04/28/17 16:00 96.9 82 20 174/77 (109) 96 04/28/17 14:55 98.1 89 16 152/69 (96) 99 04/28/17 11:32 97.5 77 16 150/82 (104) 93 Room Air 04/28/17 10:45 85 18 168/85 (112) 92 Room Air I/O 04/28/17 04/28/17 04/28/17 04/29/17 04/29/17 04/29/17 06:59 14:59 22:59 06:59 14:59 22:59 Intake Total 1000 ml 0 ml 1000 ml 0 ml Output Total 250 ml Balance 750 ml 0 ml 1000 ml 0 ml Intake Oral 0 ml IV Total 1000 ml 0 ml 1000 ml Output Urine Total 250 ml # Voids 2 1 Imaging Last Impressions Chest X-Ray 04/28/17 0000 Signed Impressions: Service Date/Time: April 17:23 - CONCLUSION: No evidence of acute cardiopulmonary disease. Kye Penn MD Abdomen/Pelvis CT 04/28/17 0000 Signed Impressions: Service Date/Time: April 08:13 - CONCLUSION: 1. Cholelithiasis with enlarged gallbladder and diffuse intra-and extra hepatic biliary ductal dilatation extending to the region of the ampulla consistent with obstruction at the level of the ampulla. No definite pancreatic mass or pancreatic ductal dilatation. Suspect choledocholithiasis or distal CBD stricture. Further evaluation may be performed with MRCP or ERCP as clinically appropriate. 2. Stable ancillary findings including hepatic and renal cysts some of which are too small to fully characterize, ectasia of the distal abdominal aorta, small fat containing periumbilical hernia, and prominent prostate. Carlos Trotter MD Laboratory Test 04/29/17 05:35 White Blood Count 7.4 TH/MM3 Red Blood Count 4.71 MIL/MM3 Hemoglobin 14.7 GM/DL Hematocrit 43.3 % Mean Corpuscular Volume 92.0 FL Mean Corpuscular Hemoglobin 31.1 PG Mean Corpuscular Hemoglobin Concent 33.8 % Red Cell Distribution Width 13.4 % Platelet Count 238 TH/MM3 Mean Platelet Volume 6.9 FL Neutrophils (%) (Auto) 55.0 % Lymphocytes (%) (Auto) 25.7 % Monocytes (%) (Auto) 14.0 % Eosinophils (%) (Auto) 4.5 % Basophils (%) (Auto) 0.8 % Neutrophils # (Auto) 4.0 TH/MM3 Lymphocytes # (Auto) 1.9 TH/MM3 Monocytes # (Auto) 1.0 TH/MM3 Eosinophils # (Auto) 0.3 TH/MM3 Basophils # (Auto) 0.1 TH/MM3 CBC Comment DIFF FINAL Differential Comment Blood Urea Nitrogen 19 MG/DL Creatinine 1.08 MG/DL Random Glucose 104 MG/DL Total Protein 7.3 GM/DL Albumin 3.6 GM/DL Calcium Level 9.0 MG/DL Phosphorus Level 2.7 MG/DL Magnesium Level 2.2 MG/DL Alkaline Phosphatase 330 U/L Aspartate Amino Transf (AST/SGOT) 66 U/L Alanine Aminotransferase (ALT/SGPT) 332 U/L Total Bilirubin 0.8 MG/DL Sodium Level 140 MEQ/L Potassium Level 4.4 MEQ/L Chloride Level 109 MEQ/L Carbon Dioxide Level 23.0 MEQ/L Anion Gap 8 MEQ/L Estimat Glomerular Filtration Rate 68 ML/MIN Lipase 171 U/L Physical Examination HEENT: PERRL; normocephalic; atraumatic; no jaundice. CHEST: CTA CARDIAC: RRR ABDOMEN: Soft, mildly distended, significant TTP RUQ; bowel sounds are present in all four quadrants. EXTREMITIES: No clubbing, cyanosis, or edema. SKIN: Normal; no rash; no jaundice. FIELD MARKETING SPECIALIST: No focal deficits; alert and oriented times three. (Jessica Clemons) Assessment and Plan Plan ASSESSMENT - abd pain, elevated LFTs - poss CBD obstruction. CT showed cholelithiasis, biliary duct dilataton consistent with obstruction at level of ampulla, no def mass. LFTs are elevated and have decreased since yesterday, tbil is WNL. lipase WNL. cannot have MRCP d/t plate in his head. d/w GS and they have requested ERCP with distal CBD brushings PLAN - ERCP with distal CBD brushings - NPO - obtain consent - monitor labs - further recs to follow pt seen by myself and Dr Taylor and this note is on his behalf (Jessica Clemons) Physician Comments Agree with above assessment and plan. ERCP explained to the patient including risk, benefits and possible complications. Dr. Cervantes will perform the procedure today. Thank you for the consult. (Vladimir Taylor MD) Jessica Clemons Apr 29, 2017 09:42 Vladimir Taylor MD Apr 29, 2017 10:51
[2017-04-29 09:51] VITALS: O2SAT 97
--- NOTE | 2017-04-29 10:11 | PD.CONS ---
cc: Rey Edmondson MD [facility] Service General Surgery Consult Requested By Dr. 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 The patient reports that he has had on and off abdominal pain for about 6 months. Over the past week or so his abdominal pain increased without any relief. He came to the [facility] ED where a CT abdomen/pelvis was obtained that shows cholelithiasis with an enlarged gallbladder and diffuse intra-and extra hepatic biliary ductal dilatation extending to the region of the ampulla consistent with obstruction at the level of the ampulla. He has a normal WBC. His liver enzymes are elevated: total bilirubin is 0.8; AST is 66; ALT 332; alkaline phosphatase 330; lipase 171. He cannot have an MRI due to a metal plate that placed in his skull after his TBI. A GI consult has been obtained for ERCP. A General Surgery consultation has been requested. Review of Systems Constitutional: DENIES: Fatigue, Fever, Weight loss, Chills, Dizziness, Change in appetite Endocrine: DENIES: Polydipsia, Polyuria, Polyphagia Eyes: DENIES: Diplopia Ears, nose, mouth, throat: DENIES: Hearing loss Respiratory: DENIES: Apneas Cardiovascular: DENIES: Chest pain Gastrointestinal: COMPLAINS OF: Abdominal pain, Nausea, Vomiting Genitourinary: DENIES: Urinary frequency Musculoskeletal: DENIES: Joint pain Integumentary: DENIES: Abnormal pigmentation Hematologic/lymphatic: DENIES: Bruising Immunologic/allergic: DENIES: Eczema Neurologic: DENIES: Headache, Localized weakness Psychiatric: DENIES: Mood changes, Depression, Hallucinations Past Family Social History Past Medical History Hypertension Dyslipidemia TBI with associated seizure disorder Past Surgical History Metal plate placed after skull fracture Cataract surgery Reported Medications Pravastatin Nitro Lisinopril Aspirin Phenytoin extended Allergies: Coded Allergies: MRI PRECAUTION (Verified Adverse Reaction, Severe, 04/28/17) Metal in head. Active Ordered Medications Current Medications Medications (Trade) Dose Ordered Sig/Bret Route Start Time Stop Time Status Last Admin (NS Flush) 2 ml UNSCH PRN IV FLUSH 04/28/17 16:30 (NS Flush) 2 ml BID IV FLUSH 04/28/17 21:00 04/29/17 08:20 (Zofran Inj) 4 mg Q6H PRN IV PUSH 04/28/17 16:30 (Toradol Inj) 15 mg Q6H PRN IV PUSH 04/28/17 16:30 05/03/17 16:29 (Morphine Inj) 4 mg Q2H PRN IV PUSH 04/28/17 16:30 04/29/17 04:11 (Morphine Inj) 4 mg Q3H PRN IV PUSH 04/28/17 16:30 04/28/17 17:12 (Narcan Inj) 0.4 mg UNSCH PRN IV PUSH 04/28/17 16:30 Potassium Chloride/Dextrose/ Sod Cl 1,000 ml @ 125 mls/hr Q8H IV 04/28/17 16:30 04/29/17 04:40 (Imelda-Colace) 1 tab BID PO 04/28/17 21:00 04/29/17 08:20 (Milk Of Magnesia Liq) 30 ml Q12H PRN PO 04/28/17 16:30 (Senokot) 17.2 mg Q12H PRN PO 04/28/17 16:30 (Dulcolax Supp) 10 mg DAILY PRN RECTAL 04/28/17 16:30 (Lactulose Liq) 30 ml DAILY PRN PO 04/28/17 16:30 (Aspirin Chew) 81 mg DAILY CHEW 04/29/17 09:00 04/29/17 08:20 (Dilantin) 100 mg TID PO 04/28/17 18:00 04/29/17 08:20 (Pravachol) 20 mg DAILY PO 04/29/17 09:00 04/29/17 08:20 (Prinivil) 40 mg DAILY PO 04/28/17 18:00 04/29/17 08:20 (Vasotec Inj) 1.25 mg Q6H PRN IV PUSH 04/28/17 17:00 Lactated Ringer's 1,000 ml @ 30 mls/hr Q24H PRN IV 04/28/17 23:15 05/01/17 23:14 Sodium Chloride 500 ml @ 30 mls/hr [id number] PRN IV 04/28/17 23:15 05/01/17 23:14 (Lopressor) 25 mg DONOR SERVICES COORDINATOR PRN PO 04/28/17 23:15 05/01/17 23:14 (Betadine 5% Antisepsis Kit) 1 applic DONOR SERVICES COORDINATOR PRN EACH NARE 04/28/17 23:15 05/01/17 23:14 (Chlorhexidine 2% Cloth) 3 pack DONOR SERVICES COORDINATOR PRN TOPICAL 04/28/17 23:15 05/01/17 23:14 Family History Non contributory Social History Denies tobacco use Denies ETOH use Denies illicit drug use Lives alone. Physical Exam Vital Signs Vital Signs Date Time Temp Pulse Resp B/P (MAP) Pulse Ox O2 Delivery O2 Flow Rate FiO2 04/29/17 09:51 97 04/29/17 08:00 97.7 82 20 162/71 (101) 97 04/29/17 00:00 98.9 74 18 141/76 (97) 92 04/28/17 20:00 99.5 71 18 153/80 (104) 94 04/28/17 16:00 96.9 82 20 174/77 (109) 96 04/28/17 14:55 98.1 89 16 152/69 (96) 99 04/28/17 11:32 97.5 77 16 150/82 (104) 93 Room Air 04/28/17 10:45 85 18 168/85 (112) 92 Room Air Physical Exam GENERAL: Very pleasant 67 year old male resting in bed in no acute distress. SKIN: Warm and dry. HEAD: Atraumatic. Normocephalic. EYES: Pupils equal and round. No scleral icterus. No injection or drainage. ENT: No nasal bleeding or discharge. Mucous membranes pink and moist. NECK: Trachea midline. CARDIOVASCULAR: Regular rate and rhythm. RESPIRATORY: No accessory muscle use. Clear to auscultation. Breath sounds equal bilaterally. GASTROINTESTINAL: Abdomen soft, moderate tenderness in RUQ with palpation; mildly distended; small umbilical hernia; no visible scars MUSCULOSKELETAL: Extremities without clubbing, cyanosis, or edema. No obvious deformities. NEUROLOGICAL: Awake and alert. No obvious cranial nerve deficits. Motor grossly within normal limits. Five out of 5 muscle strength in the arms and legs. Normal speech. PSYCHIATRIC: Appropriate mood and affect; insight and judgment normal. Laboratory Laboratory Tests Test 04/29/17 05:35 White Blood Count 7.4 Red Blood Count 4.71 Hemoglobin 14.7 Hematocrit 43.3 Mean Corpuscular Volume 92.0 Mean Corpuscular Hemoglobin 31.1 Mean Corpuscular Hemoglobin Concent 33.8 Red Cell Distribution Width 13.4 Platelet Count 238 Mean Platelet Volume 6.9 Neutrophils (%) (Auto) 55.0 Lymphocytes (%) (Auto) 25.7 Monocytes (%) (Auto) 14.0 Eosinophils (%) (Auto) 4.5 Basophils (%) (Auto) 0.8 Neutrophils # (Auto) 4.0 Lymphocytes # (Auto) 1.9 Monocytes # (Auto) 1.0 Eosinophils # (Auto) 0.3 Basophils # (Auto) 0.1 CBC Comment DIFF FINAL Differential Comment Blood Urea Nitrogen 19 Creatinine 1.08 Random Glucose 104 Total Protein 7.3 Albumin 3.6 Calcium Level 9.0 Phosphorus Level 2.7 Magnesium Level 2.2 Alkaline Phosphatase 330 Aspartate Amino Transf (AST/SGOT) 66 Alanine Aminotransferase (ALT/SGPT) 332 Total Bilirubin 0.8 Sodium Level 140 Potassium Level 4.4 Chloride Level 109 Carbon Dioxide Level 23.0 Anion Gap 8 Estimat Glomerular Filtration Rate 68 Lipase 171 Result Diagram: 04/29/17 0535 04/29/17 0535 Imaging Last 48 hours Impressions Chest X-Ray 04/28/17 0000 Signed Impressions: Service Date/Time: April 17:23 - CONCLUSION: No evidence of acute cardiopulmonary disease. Kye Penn MD Abdomen/Pelvis CT 04/28/17 0000 Signed Impressions: Service Date/Time: April 08:13 - CONCLUSION: 1. Cholelithiasis with enlarged gallbladder and diffuse intra-and extra hepatic biliary ductal dilatation extending to the region of the ampulla consistent with obstruction at the level of the ampulla. No definite pancreatic mass or pancreatic ductal dilatation. Suspect choledocholithiasis or distal CBD stricture. Further evaluation may be performed with MRCP or ERCP as clinically appropriate. 2. Stable ancillary findings including hepatic and renal cysts some of which are too small to fully characterize, ectasia of the distal abdominal aorta, small fat containing periumbilical hernia, and prominent prostate. Carlos Trotter MD Assessment and Plan Assessment and Plan 67 year old male with abdominal pain; choledocholithiasis -NPO -GI consulted--- plan for ERCP today (Cannot have MRCP due to metal plate in skull) -Continue to monitor liver enzymes -Will need to discuss timing of lap [place] and umbilical hernia repair after ERCP -Discussed plan with Family Medicine Team and Jessica -Thank you for this consult; We will continue to follow Attending Note - Dr. Edmondson Abdomen tender, but without guarding; better with pain meds Depending on LFT's, may need ERCP first vs. lap [place] with IOC if bilirubin decreasing The exam, history, and the medical decision-making described in the above note were completed with the assistance of the mid-level provider. I reviewed and agree with the findings presented. I attest that I had a [id number] encounter with the patient on the same day, and personally performed and documented my assessment and findings in the medical record. Discussed Condition With Dr. Edmondson Family Medicine Team Jessica CASTRO Mr. Del Valle Carey Juan/First Heena CASTRO Apr 29, 2017 10:11 Rey Edmondson MD Apr 30, 2017 14:36
--- NOTE | 2017-04-29 11:03 | HHI.FPPN ---
Subjective Remarks No acute events overnight. Patient continued to have some abdominal pain overnight but stated that it was well controlled with the current pain regimen. Had no nausea or vomiting overnight. Otherwise he denies chest pain, shortness of breath. (Chuck Aly MD R1) Objective Vitals Vital Signs Date Time Temp Pulse Resp B/P (MAP) Pulse Ox O2 Delivery O2 Flow Rate FiO2 04/29/17 09:51 97 04/29/17 08:00 97.7 82 20 162/71 (101) 97 04/29/17 00:00 98.9 74 18 141/76 (97) 92 04/28/17 20:00 99.5 71 18 153/80 (104) 94 04/28/17 16:00 96.9 82 20 174/77 (109) 96 04/28/17 14:55 98.1 89 16 152/69 (96) 99 04/28/17 11:32 97.5 77 16 150/82 (104) 93 Room Air 04/28/17 10:45 85 18 168/85 (112) 92 Room Air I/O 04/28/17 04/28/17 04/28/17 04/29/17 04/29/17 04/29/17 07:00 15:00 23:00 07:00 15:00 23:00 Intake Total 1000 ml 0 ml 1000 ml 0 ml Output Total 250 ml Balance 750 ml 0 ml 1000 ml 0 ml Intake Oral 0 ml IV Total 1000 ml 0 ml 1000 ml Output Urine Total 250 ml # Voids 2 1 (Chuck Aly MD R1) Result Diagram: 04/29/17 0535 04/29/17 0535 Objective Remarks GENERAL: This is a well-nourished, well-developed patient, in no apparent distress. Occasionally clutches at his abdomen due to pain SKIN: No rashes, ecchymoses or lesions. Cool and dry. HEAD: Atraumatic. Normocephalic. No temporal or scalp tenderness. EYES: Pupils equal round and reactive. Extraocular motions intact. No injection or drainage. Scleral icterus less pronounced from prior exam ENT: Nose without bleeding, purulent drainage or septal hematoma. Throat without erythema, tonsillar hypertrophy or exudate. Uvula midline. Airway patent. NECK: Trachea midline. No JVD or lymphadenopathy. Supple, nontender, no meningeal signs. CARDIOVASCULAR: Regular rate and rhythm without murmurs, gallops, or rubs. RESPIRATORY: Clear to auscultation. Breath sounds equal bilaterally. No wheezes , rales, or rhonchi. GASTROINTESTINAL: Abdomen soft, nondistended. Tender to palpation in the right upper and right lower quadrants with involuntary guarding. No rebound tenderness. No hepato-splenomegaly, or palpable masses. MUSCULOSKELETAL: Extremities without cyanosis, or edema. Clubbing noted in hands and feet. No joint tenderness, effusion, or edema noted. No calf tenderness. Negative Homans sign bilaterally. NEUROLOGICAL: Awake and alert. Cranial nerves II through XII intact. Motor and sensory grossly within normal limits. Five out of 5 muscle strength in all muscle groups. Normal speech. (Chuck Aly MD R1) A/P Assessment and Plan 67-year-old male with a history of hypertension, dyslipidemia, seizure disorder secondary to traumatic brain injury being admitted from the [place] emergency department after presenting with abdominal pain and found to have choledocholithiasis on CT scan. GI and general surgery consulted. Plan for ERCP on 04/29. Discharge Planning ERCP planned for 04/29, discussion will be had about possible laparoscopic cholecystectomy following this. Likely 2-3 more days in the hospital (Chuck Aly MD R1) Attending Attestation This patient was seen, examined and discussed this morning with the medicine team. He was transferred to our facility from [facility] because of inability to obtain ERCP in that facility. Patient cannot have MRCP due to metal in his skull. This morning, with the pain medicine on board, he is very comfortable although he's better recumbent and he is sitting up. He is nothing by mouth. Exam findings are as noted above, and I agree with the plan. (Lenka De La Rosa MD) Problem List: (1) Cholelithiasis with choledocholithiasis ICD Codes: K80.70 - Calculus of gallbladder and bile duct without cholecystitis without obstruction Status: Acute Plan: Patient presenting with colicky right upper quadrant/epigastric pain that initially started 6 months ago but is progressively worsened over the last 1.5 weeks and has been associated with nausea and vomiting over the last 1.5 weeks Patient noted to have scleral icterus and sublingual jaundice on admission exam CT scan in the ED suspicious for choledocholithiasis or distal CBD stricture with recommendations for ERCP for further evaluation Elevated liver enzymes on initial labs No elevated lipase or elevation in bilirubin on initial labs No fevers or chills, no leukocytosis since admission Repeat labs showed improvement in liver enzymes, but still elevated. AST 256 on admission -> 66 on 04/29 ALT 581 on admission -> 332 on 04/29 Alkaline phosphatase 454 on admission -> 330 on 04/29 Consulted GI and general surgery, appreciate recommendations Plan for ERCP on 04/29 Pain scale as follows: Toradol 50 mg IV for pain scale 1-5 Morphine 4 mg IV for pain scale 6-10 Morphine 4 mg IV for breakthrough pain Zofran 4 mg IV as needed for nausea (2) Nausea & vomiting ICD Codes: R11.2 - Nausea with vomiting, unspecified Plan: Nausea and vomiting for the last week and a half Likely secondary to cholelithiasis/choledocholithiasis Electrolytes within normal limits on admission Zofran as needed for nausea D5 normal saline plus potassium at 125 mL per hour for IV fluids No nausea or vomiting since admission (3) Clubbing of nails ICD Codes: R68.3 - Clubbing of fingers Plan: Patient noted to have digital clubbing on exam on admission Per chart review, CTA in 2013 showed multiple pulmonary nodules, severe emphysema. No further imaging documented CXR negative on admission Patient denies any knowledge of the prior CT findings, denies shortness of breath at baseline Will repeat CT chest during this admission (4) HTN (hypertension) ICD Codes: I10 - Essential (primary) hypertension Plan: Patient with a known history of hypertension Hypertensive overnight with systolic BP in 160's, 80's Continuing home medications lisinopril 40 mg daily Vasotec 1.25 mg IV every 6 hours as needed for systolic blood pressure over 170 , diastolic blood pressure over 100 (5) Seizure disorder ICD Codes: G40.909 - Epilepsy, unspecified, not intractable, without status epilepticus Plan: Patient has been on Dilantin since his traumatic brain injury at age 19 He says that he was told by his doctor then that he should continue to take the Dilantin to avoid having seizures Has not had his medications over the last several days due to nausea and vomiting Resuming home Dilantin dose of 100 mg by mouth 3 times a day (6) Transaminitis ICD Codes: R74.0 - Nonspecific elevation of levels of transaminase and lactic acid dehydrogenase [LDH] Status: Acute Plan: AST 256, ALT 581, alkaline phosphatase 454 on admission Likely secondary to choledocholithiasis Improved on 04/29 prior to ERCP Will continue to trend and suspect will resolve in the treatment of choledocholithiasis (7) History of stroke ICD Codes: Z86.73 - Personal history of transient ischemic attack (TIA), and cerebral infarction without residual deficits Plan: Patient reporting history of stroke 5 years ago with no residual effects Continuing home atorvastatin 20 mg daily Continuing home baby aspirin daily (8) Dyslipidemia ICD Codes: E78.5 - Dyslipidemia Status: Chronic Plan: Patient with a history of dyslipidemia Will continue home pravastatin 20 mg daily (9) Contraindication to deep vein thrombosis (DVT) prophylaxis ICD Codes: Z53.09 - Procedure and treatment not carried out because of other contraindication Plan: Holding pharmacologic DVT prophylaxis as patient is likely to undergo surgical procedure SCDs Continuing home aspirin 81 mg daily (10) FEN Plan: Nothing by mouth 125 mL per hour D5 NS plus K Holding pharmacologic DVT prophylaxis with likely upcoming surgery, baby aspirin and SCDs Constipation medications protocol ordered (Chuck Aly MD R1) Chuck Aly MD R1 Apr 29, 2017 11:03 Lenka De La Rosa MD Apr 29, 2017 13:15
--- NOTE | 2017-04-29 11:22 | EKG ---
Date Performed: 04/28/2017 Time Performed: 21:59:12 PTAGE: 67 years EKG: Sinus rhythm WITH FIRST DEGREE AV BLOCK ABNORMAL ECG PREVIOUS TRACING : 10/08/2016 14.06 Since the previous tracing, no significant change noted DOCTOR: Joselito Esparza Interpretating Date/Time 04/29/2017 11:21:16
[2017-04-29 12:00] VITALS: BP 139/69; PULSE 67; RESP 20; TEMP 96.9; O2SAT 95
--- NOTE | 2017-04-29 13:59 | RADRPT ---
EXAM DATE/TIME: 04/29/2017 11:52 [facility] COMPARISON: No previous studies available for comparison. INDICATIONS : Evaluate for mass. RADIATION DOSE: 7.55 CTDIvol (mGy) MEDICAL HISTORY : Cardiovascular disease. Cerebrovascular disease. Seizures. Hypertension SURGICAL HISTORY : Craniotomy. ENCOUNTER: Initial ACUITY: 1 day PAIN SCALE: 0/10 LOCATION: Bilateral chest TECHNIQUE: Volumetric scanning of the chest was performed. Using automated exposure control and adjustment of t he mA and/or kV according to patient size, radiation dose was kept as low as reasonably achievable to obtain optimal diagnostic quality images. DICOM format image data is available electronically for r eview and comparison. Follow-up recommendations for detected pulmonary nodules are based at a minimum on nodule size and pa tient risk factors according to Fleischner Society Guidelines. FINDINGS: There is moderate emphysema in the upper lungs. 2 tiny 3-4 mm nodules are present in the right upper lobe. There is dependent airspace disease in the lungs, probably atelectasis or mild inflammatory change. No pleural effusion. Trace pericardial fluid. Mild coronary calcifications. No acute findings in the upper abdomen. Gallstones in the gallbladder. Spleen, adrenals and pancreas unremarkable. Upper kidneys are unremarkable. CONCLUSION: 1. Moderate emphysema. 2. Subsegmental airspace disease at the lung bases most characteristic of atelectasis or mild inflamm atory change. 3. Mild coronary calcifications. Trace pericardial fluid. 4. Gallstone in gallbladder. Dwight Poon MD on April 29, 2017 at 13:40 Board Certified Radiologist. This report was verified electronically.
[2017-04-29 16:00] VITALS: BP 150/72; PULSE 75; RESP 19; TEMP 97.4; O2SAT 95
[2017-04-29] MEDS: KETOROLAC TROMETHAMINE 30 MG/ML (IVP) VIAL IV PUSH PRN (18:36)
[2017-04-29] MEDS: SODIUM CHLORIDE 0.9% FLUSH 10 ML FLUSH IV FLUSH PRN (18:46)
[2017-04-29 20:00] VITALS: BP 141/73; PULSE 73; RESP 17; TEMP 97.3; O2SAT 93
[2017-04-30 00:31] VITALS: BP 137/70; PULSE 63; RESP 17; TEMP 96.5; O2SAT 93
[2017-04-30] MEDS: KETOROLAC TROMETHAMINE 30 MG/ML (IVP) VIAL IV PUSH PRN (07:33)
[2017-04-30 08:00] VITALS: BP 157/62; PULSE 69; RESP 17; TEMP 96.9; O2SAT 93
[2017-04-30] MEDS: D5-NS + KCL 40 MEQ INJ 1,000 ML IV SCH ×2 (08:30→16:30)
[2017-04-30] MEDS: PHENYTOIN SODIUM 100 MG CAP PO SCH ×3 (09:00→17:30)
[2017-04-30] MEDS: PRAVASTATIN SOD 20 MG TAB PO SCH (09:00)
[2017-04-30] MEDS: DOCUSATE SODIUM 50 MG/SENNA 8.6 MG TAB PO SCH ×2 (09:00→19:52)
[2017-04-30] MEDS: SODIUM CHLORIDE 0.9% FLUSH 10 ML FLUSH IV FLUSH SCH ×2 (09:00→19:53)
[2017-04-30] MEDS: ASPIRIN 81 MG CHEW TAB CHEW SCH (09:00)
[2017-04-30] MEDS: LISINOPRIL 20 MG TAB PO SCH (09:02)
[2017-04-30] MEDS ORDERED: BUPIVACAINE/EPINEPHRINE 0.25% 50 ML VIAL ONE (10:09)
[2017-04-30] MEDS ORDERED: ACETAMINOPHEN 1000 MG/100 ML 100 ML IV ONE (10:12)
[2017-04-30] MEDS ORDERED: FAMOTIDINE 20 MG/2 ML VIAL ONE (10:13)
[2017-04-30] MEDS ORDERED: ceFAZolin INJ 1,000 MG VIAL ONE (10:34)
[2017-04-30] MEDS ORDERED: metroNIDAZOLE 500 MG INJ 100 ML IV ONE (10:34)
--- NOTE | 2017-04-30 11:23 | HHI.GIFU ---
Objective Vitals I&O Vital Signs Date Time Temp Pulse Resp B/P (MAP) Pulse Ox O2 Delivery O2 Flow Rate FiO2 04/30/17 08:00 96.9 69 17 157/62 (93) 93 04/30/17 00:31 96.5 63 17 137/70 (92) 93 04/29/17 20:00 97.3 73 17 141/73 (95) 93 04/29/17 16:00 97.4 75 19 150/72 (98) 95 04/29/17 12:00 96.9 67 20 139/69 (92) 95 I/O 04/29/17 04/29/17 04/29/17 04/30/17 04/30/17 04/30/17 07:00 15:00 23:00 07:00 15:00 23:00 Intake Total 1000 ml 0 ml 0 ml 0 ml Output Total 800 ml Balance 1000 ml 0 ml -800 ml 0 ml Intake Oral 0 ml 0 ml 0 ml IV Total 1000 ml Output Urine Total 800 ml # Voids 1 2 Physical Exam HEENT: Pupils round and reactive to light; normocephalic; atraumatic; no jaundice. Throat is clear. NECK: Neck is supple, no JVD, no lymphadenopathy. CHEST: Chest is clear to auscultation and percussion. CARDIAC: Regular rate and rhythm with no murmur gallop or rubs. ABDOMEN: Soft, nondistended, nontender; no hepatosplenomegaly; bowel sounds are present in all four quadrants. EXTREMITIES: No clubbing, cyanosis, or edema. SKIN: Normal; no rash; no jaundice. 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 Assessment and Plan Plan ASSESSMENT - abd pain, elevated LFTs - poss CBD obstruction. CT showed cholelithiasis, biliary duct dilataton consistent with obstruction at level of ampulla, no def mass. LFTs are elevated and have decreased since yesterday, tbil is WNL. lipase WNL. cannot have MRCP d/t plate in his head. d/w GS and they have requested ERCP with distal CBD brushings PLAN - ERCP with distal CBD brushings, procedure Tuesday - NPO Tuesday night - obtain consent Tuesday - monitor labs - further recs to follow pt seen by myself and Dr Taylor and this note is on his behalf Lenka Smith Apr 30, 2017 11:23
[2017-04-30] MEDS: IOHEXOL 350 MG/ML 50 ML BTL (for RAD DIAG) OTHER ONE (11:40)
[2017-04-30] MEDS ORDERED: DEXAMETHASONE SOD PHOS 4 MG/ML VIAL IV ONE (12:00)
[2017-04-30] MEDS ORDERED: GLYCOPYRROLATE 1 MG/5 ML SYRINGE IV PUSH ONE (12:00)
[2017-04-30] MEDS ORDERED: PROPOFOL 200 MG/20 ML AMP IV ONE (12:00)
[2017-04-30] MEDS ORDERED: STERILE WATER FOR INJECTION 20 ML VIAL IV ONE (12:00)
[2017-04-30] MEDS ORDERED: LIDOCAINE HCL 1% PF 5 ML SYRINGE OTHER ONE (12:00)
[2017-04-30] MEDS ORDERED: VECURONIUM BROMIDE 20 MG VIAL IV ONE (12:00)
[2017-04-30] MEDS ORDERED: LABETALOL HCL 100 MG/20 ML VIAL IV ONE (12:00)
[2017-04-30] MEDS ORDERED: ROCURONIUM INJ 50 MG/5 ML SYRINGE IV PUSH ONE (12:00)
[2017-04-30] MEDS ORDERED: PHENYLEPH/NS 1000 MCG/10 ML SYR IV ONE (12:00)
[2017-04-30] MEDS ORDERED: LACTATED RINGER'S 1000 ML INJ 2,000 ML IV ONE (12:00)
[2017-04-30] MEDS ORDERED: ONDANSETRON HCL 4 MG/2 ML VIAL IV ONE (12:00)
[2017-04-30] MEDS ORDERED: NEOSTIGMINE 5 MG/5 ML SYRINGE IV PUSH ONE (12:00)
--- NOTE | 2017-04-30 12:07 | RADRPT ---
EXAM DATE/TIME: 04/30/2017 10:37 [facility] COMPARISON: CT ABDOMEN & PELVIS W CONTRAST, April 28, 2017, 8:13. INDICATIONS : Gallstones. FLUORO TIME: 32 secs IMAGE COUNT: 2 MEDICAL HISTORY : Cardiovascular disease. Cerebrovascular disease. Seizures. Hypertension. SURGICAL HISTORY : None. ENCOUNTER: Initial ACUITY: 1 day PAIN SCORE: Non-responsive. LOCATION: Gallbladder PROCEDURE: CHOLANGIOGRAM, OPERATIVE 1. Intraoperative cholangiogram. In the operating room, the cystic duct stump was injected and radiographs obtained. The examination demonstrates dilation of the common bile duct with a filling defect identified within the distal duct which appears to persist. CONCLUSION: Persistent filling defect identified within the distal duct concerning for a small re sidual stone. Evita Jimenez MD on April 30, 2017 at 12:03 Board Certified Radiologist. This report was verified electronically.
--- NOTE | 2017-04-30 13:39 | RADRPT ---
EXAM DATE/TIME: 04/30/2017 12:24 [facility] COMPARISON: CHOLANGIOGRAM OPERATIVE, April 30, 2017, 10:37. INDICATIONS : Gallstone extraction. FLUORO TIME: .4 minutes IMAGE COUNT: 2 MEDICAL HISTORY : Cardiovascular disease. Cerebrovascular disease. Seizures. Hypertension. SURGICAL HISTORY : None. ENCOUNTER: Subsequent ACUITY: 1 day PAIN SCORE: Non-responsive. LOCATION: abdomen PROCEDURE: CHOLANGIOGRAM, OPERATIVE 1. Intraoperative cholangiogram. In the operating room, the cystic duct stump was injected and radiographs obtained. The examination demonstrates no evidence of persistent filling defects. The previously noted filling defect within the distal duct is no longer visualized. CONCLUSION: No evidence of common duct stone. Evita Jimenez MD on April 30, 2017 at 13:36 Board Certified Radiologist. This report was verified electronically.
--- NOTE | 2017-04-30 13:50 | HHI.PR ---
Addendum to Inpatient Note Addendum Reason: Additional Documentation Additional Information Attempting to see patient on rounds, the patient was in OR for laparoscopic cholecystectomy for extended amount of time. We'll follow general surgeries recommendations postop. Chuck Aly MD R1 Apr 30, 2017 13:50
[2017-04-30] MEDS ORDERED: *ENALAPRILAT 1.25 MG/ML VIAL PERIprocedural Use ONLY ONE (13:52)
[2017-04-30] MEDS ORDERED: *MEPERIDINE 25 MG INJ VIAL PERIprocedural Use ONLY ONE (13:52)
[2017-04-30] MEDS ORDERED: *morphine SULFATE 10 MG/ML PERIprocedure ONLY ONE ×2 (14:02→14:23)
[2017-04-30] MEDS ORDERED: DO NOT ADM ANY ANTICOAGULANT DRUGS PRN (14:30)
--- NOTE | 2017-04-30 14:34 | HHI.PR ---
cc: Rey Edmondson MD Immediate Post Op Note Procedure Date: Apr 30, 2017 Pre Op Diagnosis: Acute cholecystitis Post Op Diagnosis: Same, with choledocholithiasis Surgeon: Rey Edmondson Truck Greaser(s): Tyson Roberson CFA Procedure: Laparoscopic cholecystectomy with intraoperative cholangiogram with intraoperative use of fluoroscopy Conversion to open cholecystectomy with common bile duct exploration, stone extraction, and cholangioscopy T-tube placement with completion T-tube cholangiogram Findings: Acute necrotizing cholecystitis Distal CBD stone Biliary drainage from liver bed after cholecystectomy Anesthesia: General Drains: SUSAN, Other (T-tube) IVF (3400 ml) Patient to: PACU Patient Condition: Good Date/Time of Procedure: SEE SURGICAL CARE RECORD Rey Edmondson MD Apr 30, 2017 14:34
[2017-04-30] MEDS ORDERED: *PROMETHAZINE 25 MG/ML VIAL PERIprocedural use ONLY ONE (14:48)
[2017-04-30] MEDS ORDERED: *ONDANSETRON 4 MG VIAL PERIprocedural Use ONLY ONE (14:48)
[2017-04-30] MEDS ORDERED: ACETAMINOPHEN/HYDROcodone 325 MG/7.5 MG TAB PO PRN (15:00)
[2017-04-30 16:00] VITALS: BP 151/65; PULSE 59; RESP 17; TEMP 96.3; O2SAT 97
[2017-04-30 20:00] VITALS: BP 150/70; PULSE 63; RESP 18; TEMP 96.2; O2SAT 97
[2017-04-30] MEDS: ACETAMINOPHEN/HYDROcodone 325 MG/7.5 MG TAB PO PRN (22:03)
--- NOTE | 2017-04-30 22:14 | MP ---
cc: Rey Edmondson MD DATE OF OPERATION: 04/30/2017 PROCEDURE: 1. Laparoscopic cholecystectomy with intraoperative cholangiogram with intraoperative use of fluoroscopy. 2. Open procedure with common bile duct exploration with stone extraction and cholangioscopy. 3. T-tube cholangiogram. 4. Primary repair of umbilical hernia. PREOPERATIVE DIAGNOSIS: Acute cholecystitis with elevated liver function tests. POSTOPERATIVE DIAGNOSIS: Acute cholecystitis with choledocholithiasis. ESTIMATED BLOOD LOSS: 300 mL FLUIDS: 2400 mL crystalloid. COMPLICATIONS: Bile seen at liver bed. DRAINS: SUSAN x 1. SPECIMENS: Gallbladder and contents as well as common duct stone to pathology. PROCEDURE IN DETAIL: The patient was taken to the operating room, and placed on the operating table in the supine position. After an adequate level of general endotracheal anesthesia was achieved, the abdomen was prepped and draped in the usual fashion. Timeout was taken confirming we had the correct patient, site, and procedure to be performed. Skin and subcutaneous tissue was infiltrated with local anesthetic and an incision made in the umbilicus and carried through the fascia sharply. The peritoneal cavity was directly visualized. A 12 mm trocar was inserted and the balloon inflated. The abdomen was insufflated. The patient was placed in reverse Trendelenburg position. Three 5 mm trocars were placed with the first to the right of the falciform ligament the second and third in the right subcostal region. All entered the abdominal cavity under direct vision uneventfully. The gallbladder was quite inflamed and omental adhesions were taken down first with blunt dissection. The gallbladder was punctured and white bile was removed. Approximately 85 mL was removed. This had no odor to it. This allowed for the gallbladder to be grasped and retracted up and over the dome of the liver. The cystic duct infundibular junction and cystic artery were both circumferentially dissected. The cystic artery was doubly clipped proximally, singly clipped on the gallbladder side and divided. A single clip was placed on the gallbladder side of the cystic duct and a cystic ductotomy was made. An Muse cholangiocatheter was brought in via separate stab incision and placed into the cystic duct. This was secured with a clip. A cholangiogram was obtained, under real time fluoroscopy. This demonstrated a filling defect in the distal common bile duct. Some contrast was able to be extruded into the duodenum. There was good backfilling into the common bile duct, common hepatic duct and left and right hepatic radicles. No other filling defects were noted. At this point, the cholangiocatheter was removed, the cystic duct was doubly clipped distally and divided. The gallbladder was dissected off of the liver bed with electrodissection. The liver bed was extremely raw and had significant amount of oozing. After removal of the gallbladder, the gallbladder was placed into an EndoCatch device and removed via the umbilical port and passed off the table. The upper abdomen was revisualized and multiple oozing points on the liver bed were controlled with electrocautery. After use of the electrocautery, one area on the liver bed was seen to have a small amount of bile leaking from it. Given these findings, and the fact that the patient had a common duct stone, there was concern that the pressure in the biliary system would cause continued leakage until the common duct stone could be removed. At this point, it was felt that the patient would best be served by removal of the stone, intraoperatively, and a repair patch or seal of the liver bed to prevent further bile leakage. The trocars were removed and insufflation discontinued. The upper midline 5 mm trocar site incision was connected to the more medial of the 2 subcostal 5 mm trocar sites. Dissection was carried through the fascia, the rectus muscle was divided with electrocautery and the posterior fascia divided. The peritoneal cavity was entered uneventfully. A Bookwalter retractor was inserted for visualization. The cystic duct stump was easily identified and the liver bed was inspected. A small hole was noted in a small branch off of a side bile duct. This was not the common duct nor one of the main ducts. At this point, the common bile duct was opened with Burris scissors at a level in the common hepatic duct near the cystic duct-common hepatic duct confluence. A ureteroscope was brought up and at this point suction apparatus was placed into the bile duct to remove bile. The common duct stone was removed with the suction and passed off the table. The ureteroscope was then used and passed down distally into the duodenum and no filling defects were noted withdrawing the ureteroscope. It was then placed proximally into the common hepatic duct and the left and right hepatic radicles were visualized and seen to be without filling defects. The ureteroscope was removed and a 14-Welsh T-tube was trimmed to size and placed into the common bile duct. The ends were trimmed prior to placement and a small defect was created in the rubber tube site. The tube was secured in place with 4-0 Vicryl sutures. A T-tube cholangiogram was obtained at this point and demonstrated good flow of contrast into the duodenum with no further filling defects noted. A SUSAN drain was brought out via 5 mm trocar site incision and the T-tube was brought out via separate stab incision as well. These were both secured to the skin with 3-0 nylon suture. The abdomen was irrigated and at this point, the liver bed was reexamined and SNOW was placed into the liver bed after closing the single small biliary defect with a 4-0 Vicryl suture. This created a leak free surface. The SNOW was placed across the raw liver bed and the SUSAN drain placed across this. The wound was closed in 2 layers with #1 running PDS suture. The skin was closed with vonda. The umbilicus was closed with interrupted 0 Prolene suture. The skin was closed in the umbilicus with 4-0 Vicryl in an interrupted buried fashion. The umbilicus was dressed with Steri-Strips. 4 x 4s were placed around the drains including the T-tube, which was attached to a bili bag. A Bioclusive dressing was placed over the subcostal incision. The patient was extubated and taken back to the recovery room in stable condition. He tolerated the procedure well. Sponge, needle, and instrument counts were reported to be correct x 2. Rey Edmondson MD MAF/rt , 08:35 PM , 10:13 PM KRISHNA
[2017-04-30 22:21] LABS: AUTOMATED NEUTROPHIL # 5.3 TH/MM3 (1.8-7.7); BASOPHIL % 0.7 % (0.0-2.0); EOSINOPHIL # 0.1 TH/MM3 (0-0.4); EOSINOPHIL % 1.5 % (0.0-4.0); HEMATOCRIT 36.1 % (39.0-51.0); LYMPH % 18.9 % (9.0-44.0); LYMPHOCYTE # 1.4 TH/MM3 (1.0-4.8); MEAN CELL VOLUME 92.3 FL (80.0-100.0); MEAN CORPUSCULAR HEMOGLOBIN 30.6 PG (27.0-34.0); MEAN CORPUSCULAR HGB CONC 33.2 % (32.0-36.0); MEAN PLATELET VOLUME 6.9 FL (7.0-11.0); MONO % 8.1 % (0.0-8.0); MONOCYTE # 0.6 TH/MM3 (0-0.9); NEUT % 70.8 % (16.0-70.0); PLATELET COUNT 206 TH/MM3 (150-450); RED BLOOD COUNT 3.91 MIL/MM3 (4.50-5.90); RED CELL DISTRIBUTION WIDTH 13.2 % (11.6-17.2); WHITE BLOOD COUNT 7.5 TH/MM3 (4.0-11.0)
[2017-04-30 22:47] LABS: ALBUMIN 2.7 GM/DL (3.4-5.0); ALKALINE PHOSPHATASE 345 U/L (45-117); ALT (GPT) 238 U/L (12-78); AST (GOT) 127 U/L (15-37); BICARBONATE 28.4 MEQ/L (21.0-32.0); BLOOD UREA NITROGEN 15 MG/DL (7-18); CALCIUM 7.8 MG/DL (8.5-10.1); CHLORIDE 109 MEQ/L (98-107); CREATININE 0.96 MG/DL (0.60-1.30); GLOMERULAR FILTRATION RATE 78 ML/MIN (>89); GLUCOSE,RANDOM 132 MG/DL (74-106); SODIUM (NA) 142 MEQ/L (136-145); TOTAL BILIRUBIN ADULT 0.5 MG/DL (0.2-1.0); TOTAL PROTEIN 6.1 GM/DL (6.4-8.2)
[2017-05-01] VITALS (7 sets, daily range): BP systolic 139–162; BP diastolic 67–85; PULSE 69–79; RESP 16–18; TEMP 96.6–100.6; O2SAT 90–95
[2017-05-01] MEDS: ACETAMINOPHEN/HYDROcodone 325 MG/7.5 MG TAB PO PRN ×2 (02:41→08:31)
[2017-05-01] MEDS: MORPHINE SULFATE 4 MG/ML INJ IV PUSH PRN (06:25)
[2017-05-01] MEDS: PRAVASTATIN SOD 20 MG TAB PO SCH (08:30)
[2017-05-01] MEDS: D5-NS + KCL 40 MEQ INJ 1,000 ML IV SCH ×3 (08:30→16:30)
[2017-05-01] MEDS: DOCUSATE SODIUM 50 MG/SENNA 8.6 MG TAB PO SCH ×2 (08:30→20:13)
[2017-05-01] MEDS: ASPIRIN 81 MG CHEW TAB CHEW SCH (08:30)
[2017-05-01] MEDS: LISINOPRIL 20 MG TAB PO SCH (08:30)
[2017-05-01] MEDS: SODIUM CHLORIDE 0.9% FLUSH 10 ML FLUSH IV FLUSH SCH ×2 (08:31→20:17)
[2017-05-01] MEDS: PHENYTOIN SODIUM 100 MG CAP PO SCH ×3 (08:31→16:39)
--- NOTE | 2017-05-01 08:47 | HHI.FPPN ---
Subjective Remarks Patient was seen and examined this morning. He states he has sharp pain in the abdomen since his surgery yesterday. He denies fevers, chills, n/v. No bowel movement yet. Had dinner last night. Still has Malave in place. Objective Vitals Vital Signs Date Time Temp Pulse Resp B/P (MAP) Pulse Ox O2 Delivery O2 Flow Rate FiO2 05/01/17 04:58 100.6 79 17 141/69 (93) 95 05/01/17 04:26 20 05/01/17 00:00 98.8 73 17 139/67 (91) 95 04/30/17 20:00 96.2 63 18 150/70 (96) 97 04/30/17 16:00 96.3 59 17 151/65 (93) 97 04/30/17 15:23 58 18 125/79 (94) 97 Nasal Cannula 4 04/30/17 14:30 57 18 136/65 (88) 96 Nasal Cannula 4 04/30/17 14:15 69 18 149/61 (90) 95 Nasal Cannula 4 04/30/17 14:00 75 18 174/72 (106) 93 Nasal Cannula 4 04/30/17 13:48 98.5 73 18 194/72 (112) 93 Nasal Cannula 4 I/O 04/30/17 04/30/17 04/30/17 05/01/17 05/01/17 05/01/17 07:00 15:00 23:00 07:00 15:00 23:00 Intake Total 0 ml 2500 ml 680 ml Output Total 300 ml 520 ml 1284 ml Balance 0 ml 2200 ml -520 ml -604 ml Intake Oral 0 ml 680 ml Other 2500 ml Output Urine Total 350 ml 1000 ml Drainage Total 170 ml 284 ml Estimated Blood Loss 300 ml # Voids 2 # Bowel Movements 0 Result Diagram: 04/30/17219904/30/17 220 Imaging Last Impressions Cholangiogram 04/30/17 0000 Signed Impressions: Service Date/Time: Sunday, April 30, 2017 12:24 - CONCLUSION: No evidence of common duct stone. Evita Jimenez MD Chest CT 04/29/17 0000 Signed Impressions: Service Date/Time: Saturday, April 29, 2017 11:52 - CONCLUSION: 1. Moderate emphysema. 2. Subsegmental airspace disease at the lung bases most characteristic of atelectasis or mild inflammatory change. 3. Mild coronary calcifications. Trace pericardial fluid. 4. Gallstone in gallbladder. Dwight Poon MD Chest X-Ray 04/28/17 0000 Signed Impressions: Service Date/Time: April 17:23 - CONCLUSION: No evidence of acute cardiopulmonary disease. Kye Penn MD Abdomen/Pelvis CT 04/28/17 0000 Signed Impressions: Service Date/Time: April 08:13 - CONCLUSION: 1. Cholelithiasis with enlarged gallbladder and diffuse intra-and extra hepatic biliary ductal dilatation extending to the region of the ampulla consistent with obstruction at the level of the ampulla. No definite pancreatic mass or pancreatic ductal dilatation. Suspect choledocholithiasis or distal CBD stricture. Further evaluation may be performed with MRCP or ERCP as clinically appropriate. 2. Stable ancillary findings including hepatic and renal cysts some of which are too small to fully characterize, ectasia of the distal abdominal aorta, small fat containing periumbilical hernia, and prominent prostate. Carlos Trotter MD Objective Remarks GEN: Well-developed, well-nourished patient. No acute distress. Clutching abdomen due to pain. CV: Regular rate and rhythm without obvious murmurs LUNGS: Clear to auscultation bilaterally but taking shallow breaths due to paint. No wheezes, rales, rhonchi. GI: Soft, nondistended. Bowel sounds present. Patient has 2 right upper quadrant drains, one with small amount of serosanguineous fluid drainage and one with bilious drainage. Dressing over right upper quadrant skin area is clean. Trocar dressing at umbilicus is clean. EXT: No edema. No calf tenderness. NEURO/PSYCH: Awake, alert. Appropriate insight and judgment. Normal speech Procedures Open cholecystectomy 05/[address] Edmondson Medications and IVs Inpatient Medications Acetaminophen/ Hydrocodone Bitart ([place] 7.5-325 Mg) 2 tab Q4H PRN PO pain 6- 10 Last administered on 05/01/17at 08:31; Start 04/30/17 at 15:00; Stop 05/01/17 at 10:17; Status DC Aspirin (Aspirin Chew) 81 mg DAILY CHEW Last administered on 05/01/17at 08:30; Start 04/29/17 at 09:00 Bisacodyl (Dulcolax Supp) 10 mg DAILY PRN RECTAL SEVERE CONSITIPATION; Start at 16:30 Chlorhexidine Gluconate (Chlorhexidine 2% Cloth) 3 pack EVENT PLANNER PRN TOPICAL SEE LABEL COMMENTS; Start 04/28/17 at 23:15; Stop 05/01/17 at 23:14 Enalaprilat (Vasotec Inj) 1.25 mg Q6H PRN IV PUSH SEE LABEL COMMENTS; Start at 17:00 Heparin Sodium (Porcine) (Heparin Inj) 5,000 units Q8H SQ ; Start 05/01/17 at 20 :00 Iohexol (Omnipaque 350 Inj) 15 ml ONCE ONCE OTHER Last administered on at 11:40; Start 04/30/17 at 12:59; Stop 04/30/17 at 13:00; Status DC Ketorolac Tromethamine (Toradol Inj) 15 mg Q6H PRN IV PUSH PAIN SCALE 1 TO 5 Last administered on 04/30/17at 07:33; Start 04/28/17 at 16:30; Stop 05/03/17 at 16:29 Lactated Ringer's 1,000 ml @ 30 mls/hr Q24H PRN IV SEE LABEL COMMENTS; Start at 23:15; Stop 05/01/17 at 23:14 Lactulose (Lactulose Liq) 30 ml DAILY PRN PO SEVERE CONSITIPATION; Start at 16:30 Lisinopril (Prinivil) 40 mg DAILY PO Last administered on 05/01/17at 08:30; Start 04/28/17 at 18:00 Magnesium Hydroxide (Milk Of Magnesia Liq) 30 ml Q12H PRN PO Mild constipation ; Start 04/28/17 at 16:30 Metoprolol Tartrate (Lopressor) 25 mg EVENT PLANNER PRN PO SEE LABEL COMMENTS; Start 04/28/17 at 23:15; Stop 05/01/17 at 23:14 Miscellaneous Information ALL NURSING DEPARTME... UNSCH PRN .XX SEE LABEL COMMENTS; Start 04/30/17 at 14:30; Stop 05/01/17 at 14:29 Morphine Sulfate (Morphine Inj) 4 mg Q3H PRN IV PUSH BREAKTHROUGH PAIN Last administered on 05/01/17at 09:23; Start 04/28/17 at 16:30 Naloxone HCl (Narcan Inj) 0.4 mg UNSCH PRN IV PUSH SEE LABEL COMMENTS; Start at 16:30 Ondansetron HCl (Zofran Inj) 4 mg Q6H PRN IV PUSH NAUSEA OR VOMITING; Start at 16:30 Oxycodone/ Acetaminophen (Percocet 7.5-325 Mg) 2 tab Q4H PRN PO kirk scale 6-10 ; Start 05/01/17 at 10:15 Phenytoin (Dilantin) 100 mg TID PO Last administered on 05/01/17at 08:31; Start 04/28/17 at 18:00 Potassium Chloride/Dextrose/ Sod Cl 1,000 ml @ 125 mls/hr Q8H IV Last administered on 05/01/17at 08:33; Start 04/28/17 at 16:30 Povidone Iodine (Betadine 5% Antisepsis Kit) 1 applic EVENT PLANNER PRN EACH NARE SEE LABEL COMMENTS; Start 04/28/17 at 23:15; Stop 05/01/17 at 23:14 Pravastatin Sodium (Pravachol) 20 mg DAILY PO Last administered on 05/01/17at 08 :30; Start 04/29/17 at 09:00 Senna/Docusate Sodium (Imelda-Colace) 1 tab BID PO Last administered on at 08:30; Start 04/28/17 at 21:00 Sennosides (Senokot) 17.2 mg Q12H PRN PO Moderate constipation; Start 04/28/17 at 16:30 Sodium Chloride 500 ml @ 30 mls/hr [id number] PRN IV SEE LABEL COMMENTS; Start at 23:15; Stop 05/01/17 at 23:14 Sodium Chloride (NS Flush) 2 ml BID IV FLUSH Last administered on 04/29/17at 08: 20; Start 04/28/17 at 21:00 Urinary Catheter: Yes Malave insert reason: Measure Accurate Output Date of Insertion: Apr 30, 2017 Vascular Central Line Catheter: No A/P Assessment and Plan 67-year-old male with a history of hypertension, dyslipidemia, seizure disorder secondary to traumatic brain injury being admitted from the [facility] emergency department after presenting with abdominal pain and found to have choledocholithiasis on CT scan. GI and general surgery consulted. Open cholecystectomy performed 04/30. Discharge Planning Patient possibly to have 2-3 days more in the hospital as he did have open cholecystectomy Disposition likely to home, will have PT evaluate Problem List: (1) Status post cholecystectomy ICD Codes: Z90.49 - Acquired absence of other specified parts of digestive tract Status: Acute Plan: POD # 1 Patient had laparoscopic cholecystectomy conversion to open cholecystectomy with common bile duct expiration, stone extraction, and cholangioscopy with T- tube placement T tube in place draining serosanguineous fluid Biliary drain in place Malave in place Mild postoperative anemia, but stable Per general surgery, will work on pain regimen, clear liquid diet for now, encourage activity Plan: * Increase activity * PT ordered * Will start heparin 5000 units subQ every 8 hours tonight * Incentive spirometry Pain medications: * [place]ir[place] 7.5/325mg, 1 tab every 4 hours for pain 1-4 * [place] 7.5/325mg, 2 tabs every 4 hours for pain 1-4 * Continue morphine 4 mg IV every 3 hours for breakthrough pain * Received 2 doses of Toradol 15 mg IV on 04/29 and 04/30, discontinued (2) Cholelithiasis with choledocholithiasis ICD Codes: K80.70 - Calculus of gallbladder and bile duct without cholecystitis without obstruction Status: Resolved Plan: Patient is status post surgery, performed 04/30 Management as above Hospital course: Patient presenting with colicky right upper quadrant/epigastric pain that initially started 6 months ago but is progressively worsened over the last 1.5 weeks and has been associated with nausea and vomiting over the last 1.5 weeks Patient noted to have scleral icterus and sublingual jaundice on admission exam CT scan in the ED suspicious for choledocholithiasis or distal CBD stricture with recommendations for ERCP for further evaluation Elevated liver enzymes on initial labs No elevated lipase or elevation in bilirubin on initial labs No fevers or chills, no leukocytosis since admission Repeat labs showed improvement in liver enzymes, but still elevated. AST 256 on admission --> 92 on 05/01 ALT 581 on admission -> 208 on 05/01 Alkaline phosphatase 454 on admission -> 335 on 05/01 Consulted GI and general surgery, appreciate recommendations and manage Pain scale as above Zofran 4 mg IV as needed for nausea (3) Nausea & vomiting ICD Codes: R11.2 - Nausea with vomiting, unspecified Status: Resolved Plan: Resolved, has had no vomiting since admit Continue Zofran as needed for nausea Hyperkalemia noted last night, resolved this morning Hospital course: Presented with nausea and vomiting for over 1 week prior to admission Likely secondary to cholelithiasis/choledocholithiasis Electrolytes within normal limits on admission (4) 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 No further imaging documented CXR negative on admission CT chest 04/29 showing moderate emphysema, atelectatic changes, coronary calcifications, gallstone, tiny 3-4 millimeter nodules in the right upper lobe of the lung Patient denies any knowledge of the prior CT findings, denies shortness of breath at baseline We will monitor respiratory status postoperatively (5) HTN (hypertension) ICD Codes: I10 - Essential (primary) hypertension Status: Chronic Plan: Patient with a known history of hypertension SBP 140s-150s over last 24hr. We will monitor and adjust home regimen as needed. It is noted that he is also in pain which may be contributing to elevated levels Continuing home medications lisinopril 40 mg daily Vasotec 1.25 mg IV every 6 hours as needed for systolic blood pressure over 170 , diastolic blood pressure over 100 (6) Seizure disorder ICD Codes: G40.909 - Epilepsy, unspecified, not intractable, without status epilepticus Plan: Patient has been on Dilantin since his traumatic brain injury at age 19 He says that he was told by his doctor then that he should continue to take the Dilantin to avoid having seizures Has not had his medications over the last several days due to nausea and vomiting Resuming home Dilantin dose of 100 mg by mouth 3 times a day (7) Transaminitis ICD Codes: R74.0 - Nonspecific elevation of levels of transaminase and lactic acid dehydrogenase [LDH] Status: Acute Plan: Likely secondary to choledocholithiasis Management as above (8) History of stroke ICD Codes: Z86.73 - Personal history of transient ischemic attack (TIA), and cerebral infarction without residual deficits Plan: Patient reporting history of stroke 5 years ago with no residual effects Continuing home atorvastatin 20 mg daily Continuing home 81 mg aspirin daily (9) Dyslipidemia ICD Codes: E78.5 - Dyslipidemia Status: Chronic Plan: Patient with a history of dyslipidemia Will continue home pravastatin 20 mg daily (10) FEN Plan: Fluids: tolerating PO/LR +40 mEq KCl per liter at 125ml/hr Electrolytes: monitor and replete as needed Nutrition: Clear liquid DVT Prophylaxis: Early ambulation. Heparin 5000U subQ q12hr/bilateral SCDs GI Prophylaxis: [steroids/ventilator/GIB/burn] PRN anti-HTN: Clonidine 0.1mg PO PRN for SBP > 180/ and/or DBP > 100 nothing by mouth Constipation medications protocol ordered Kelly An MD May 01, 2017 08:47
[2017-05-01] MEDS: MORPHINE SULFATE 2 MG/ML INJ IV PUSH PRN (09:23)
[2017-05-01] MEDS ORDERED: oxyCODONE/ACETAMINOPHEN 7.5 MG/325 MG TAB PO PRN (10:15)
--- NOTE | 2017-05-01 10:19 | HHI.PR ---
Subjective Subjective Notes pod 1 open charlotte with t tube, c/o severe pain this am, no bm Objective Vitals/I&O Vital Signs Date Time Temp Pulse Resp B/P (MAP) Pulse Ox O2 Delivery O2 Flow Rate FiO2 05/01/17 08:00 98.3 78 17 146/75 (98) 90 04/30/17 15:23 Nasal Cannula 4 Labs Laboratory Tests Test 04/30/17 22:00 05/01/17 09:42 White Blood Count 7.5 Red Blood Count 3.91 Hemoglobin 12.0 Hematocrit 36.1 Mean Corpuscular Volume 92.3 Mean Corpuscular Hemoglobin 30.6 Mean Corpuscular Hemoglobin Concent 33.2 Red Cell Distribution Width 13.2 Platelet Count 206 Mean Platelet Volume 6.9 Neutrophils (%) (Auto) 70.8 Lymphocytes (%) (Auto) 18.9 Monocytes (%) (Auto) 8.1 Eosinophils (%) (Auto) 1.5 Basophils (%) (Auto) 0.7 Neutrophils # (Auto) 5.3 Lymphocytes # (Auto) 1.4 Monocytes # (Auto) 0.6 Eosinophils # (Auto) 0.1 Basophils # (Auto) 0.0 CBC Comment DIFF FINAL Differential Comment Blood Urea Nitrogen 15 Creatinine 0.96 Random Glucose 132 Total Protein 6.1 Albumin 2.7 Calcium Level 7.8 Alkaline Phosphatase 345 Aspartate Amino Transf (AST/SGOT) 127 Alanine Aminotransferase (ALT/SGPT) 238 Total Bilirubin 0.5 Sodium Level 142 Potassium Level 5.2 Chloride Level 109 Carbon Dioxide Level 28.4 Anion Gap 5 Estimat Glomerular Filtration Rate 78 Lipase 134 Radiology Last 48 hours Impressions Chest X-Ray 04/28/17 0000 Signed Impressions: Service Date/Time: April 17:23 - CONCLUSION: No evidence of acute cardiopulmonary disease. Kye Penn MD Abdomen/Pelvis CT 04/28/17 0000 Signed Impressions: Service Date/Time: April 08:13 - CONCLUSION: 1. Cholelithiasis with enlarged gallbladder and diffuse intra-and extra hepatic biliary ductal dilatation extending to the region of the ampulla consistent with obstruction at the level of the ampulla. No definite pancreatic mass or pancreatic ductal dilatation. Suspect choledocholithiasis or distal CBD stricture. Further evaluation may be performed with MRCP or ERCP as clinically appropriate. 2. Stable ancillary findings including hepatic and renal cysts some of which are too small to fully characterize, ectasia of the distal abdominal aorta, small fat containing periumbilical hernia, and prominent prostate. Carlos Trotter MD Abdomen: Other (soft incision with dressing c.d.i, ilana serosang, t tube bilious) A/P Assessment and Plan POD 1 open charlotte with tube tube plan increase pain control change to percocet clear diet await bowel fxn to advance encourage oob to chair today keep gutierrez for Is and Os dvt ppx Deni Art MD May 01, 2017 10:19
[2017-05-01 10:35] LABS: AUTOMATED NEUTROPHIL # 5.6 TH/MM3 (1.8-7.7); BASOPHIL # 0.1 TH/MM3 (0-0.2); BASOPHIL % 0.7 % (0.0-2.0); EOSINOPHIL # 0.3 TH/MM3 (0-0.4); EOSINOPHIL % 4.4 % (0.0-4.0); HEMATOCRIT 37.9 % (39.0-51.0); HEMOGLOBIN 12.7 GM/DL (13.0-17.0); LYMPH % 15.2 % (9.0-44.0); LYMPHOCYTE # 1.2 TH/MM3 (1.0-4.8); MEAN CELL VOLUME 92.9 FL (80.0-100.0); MEAN CORPUSCULAR HGB CONC 33.4 % (32.0-36.0); MONO % 8.6 % (0.0-8.0); MONOCYTE # 0.7 TH/MM3 (0-0.9); NEUT % 71.1 % (16.0-70.0); PLATELET COUNT 242 TH/MM3 (150-450); RED BLOOD COUNT 4.08 MIL/MM3 (4.50-5.90); RED CELL DISTRIBUTION WIDTH 12.9 % (11.6-17.2); WHITE BLOOD COUNT 7.8 TH/MM3 (4.0-11.0)
[2017-05-01 11:15] LABS: ALBUMIN 2.9 GM/DL (3.4-5.0); ALKALINE PHOSPHATASE 335 U/L (45-117); ALT (GPT) 208 U/L (12-78); AST (GOT) 92 U/L (15-37); BLOOD UREA NITROGEN 12 MG/DL (7-18); CALCIUM 8.3 MG/DL (8.5-10.1); CHLORIDE 106 MEQ/L (98-107); CREATININE 1.05 MG/DL (0.60-1.30); GLOMERULAR FILTRATION RATE 70 ML/MIN (>89); GLUCOSE,RANDOM 122 MG/DL (74-106); SODIUM (NA) 137 MEQ/L (136-145); TOTAL BILIRUBIN ADULT 0.7 MG/DL (0.2-1.0); TOTAL PROTEIN 6.4 GM/DL (6.4-8.2)
--- NOTE | 2017-05-01 12:16 | HHI.GIFU ---
Subjective Remarks pt resting in bed in NAD. son at bedside. c/o abd pain, in area of drains, RUQ. s/p lap charlotte (Jessica Clemons) Objective Vitals I&O Vital Signs Date Time Temp Pulse Resp B/P (MAP) Pulse Ox O2 Delivery O2 Flow Rate FiO2 05/01/17 08:00 98.3 78 17 146/75 (98) 90 05/01/17 04:58 100.6 79 17 141/69 (93) 95 05/01/17 04:26 20 05/01/17 00:00 98.8 73 17 139/67 (91) 95 04/30/17 20:00 96.2 63 18 150/70 (96) 97 04/30/17 16:00 96.3 59 17 151/65 (93) 97 04/30/17 15:23 58 18 125/79 (94) 97 Nasal Cannula 4 04/30/17 14:30 57 18 136/65 (88) 96 Nasal Cannula 4 04/30/17 14:15 69 18 149/61 (90) 95 Nasal Cannula 4 04/30/17 14:00 75 18 174/72 (106) 93 Nasal Cannula 4 04/30/17 13:48 98.5 73 18 194/72 (112) 93 Nasal Cannula 4 I/O 04/30/17 04/30/17 04/30/17 05/01/17 05/01/17 05/01/17 07:00 15:00 23:00 07:00 15:00 23:00 Intake Total 0 ml 2500 ml 680 ml Output Total 300 ml 520 ml 1284 ml Balance 0 ml 2200 ml -520 ml -604 ml Intake Oral 0 ml 680 ml Other 2500 ml Output Urine Total 350 ml 1000 ml Drainage Total 170 ml 284 ml Estimated Blood Loss 300 ml # Voids 2 # Bowel Movements 0 Laboratory Laboratory Tests Test 04/30/17 22:00 05/01/17 09:42 White Blood Count 7.5 7.8 Red Blood Count 3.91 4.08 Hemoglobin 12.0 12.7 Hematocrit 36.1 37.9 Mean Corpuscular Volume 92.3 92.9 Mean Corpuscular Hemoglobin 30.6 31.0 Mean Corpuscular Hemoglobin Concent 33.2 33.4 Red Cell Distribution Width 13.2 12.9 Platelet Count 206 242 Mean Platelet Volume 6.9 7.0 Neutrophils (%) (Auto) 70.8 71.1 Lymphocytes (%) (Auto) 18.9 15.2 Monocytes (%) (Auto) 8.1 8.6 Eosinophils (%) (Auto) 1.5 4.4 Basophils (%) (Auto) 0.7 0.7 Neutrophils # (Auto) 5.3 5.6 Lymphocytes # (Auto) 1.4 1.2 Monocytes # (Auto) 0.6 0.7 Eosinophils # (Auto) 0.1 0.3 Basophils # (Auto) 0.0 0.1 CBC Comment DIFF FINAL DIFF FINAL Differential Comment Blood Urea Nitrogen 15 12 Creatinine 0.96 1.05 Random Glucose 132 122 Total Protein 6.1 6.4 Albumin 2.7 2.9 Calcium Level 7.8 8.3 Alkaline Phosphatase 345 335 Aspartate Amino Transf (AST/SGOT) 127 92 Alanine Aminotransferase (ALT/SGPT) 238 208 Total Bilirubin 0.5 0.7 Sodium Level 142 137 Potassium Level 5.2 4.2 Chloride Level 109 106 Carbon Dioxide Level 28.4 23.0 Anion Gap 5 8 Estimat Glomerular Filtration Rate 78 70 Lipase 134 Imaging Last Impressions Cholangiogram 04/30/17 0000 Signed Impressions: Service Date/Time: Sunday, April 30, 2017 12:24 - CONCLUSION: No evidence of common duct stone. Evita Jimenez MD Chest CT 04/29/17 0000 Signed Impressions: Service Date/Time: Saturday, April 29, 2017 11:52 - CONCLUSION: 1. Moderate emphysema. 2. Subsegmental airspace disease at the lung bases most characteristic of atelectasis or mild inflammatory change. 3. Mild coronary calcifications. Trace pericardial fluid. 4. Gallstone in gallbladder. Dwight Poon MD Chest X-Ray 04/28/17 0000 Signed Impressions: Service Date/Time: April 17:23 - CONCLUSION: No evidence of acute cardiopulmonary disease. Kye Penn MD Abdomen/Pelvis CT 04/28/17 0000 Signed Impressions: Service Date/Time: April 08:13 - CONCLUSION: 1. Cholelithiasis with enlarged gallbladder and diffuse intra-and extra hepatic biliary ductal dilatation extending to the region of the ampulla consistent with obstruction at the level of the ampulla. No definite pancreatic mass or pancreatic ductal dilatation. Suspect choledocholithiasis or distal CBD stricture. Further evaluation may be performed with MRCP or ERCP as clinically appropriate. 2. Stable ancillary findings including hepatic and renal cysts some of which are too small to fully characterize, ectasia of the distal abdominal aorta, small fat containing periumbilical hernia, and prominent prostate. Carlos Trotter MD Physical Exam HEENT: PERRL; normocephalic; atraumatic; no jaundice. CHEST: CTA CARDIAC: RRR ABDOMEN: Soft, ;mildly distended, upper quadrant TTP, cholecystostomy drain with bilious output, RUQ drain with small amt sanguineous/bilious drainage. ; no hepatosplenomegaly; bowel sounds are present in all four quadrants. EXTREMITIES: No clubbing, cyanosis, or edema. SKIN: Normal; no rash; no jaundice. BIOLOGY INTERN: No focal deficits; alert and oriented times three. (Jessica Clemons) Assessment and Plan Plan ASSESSMENT - abd pain, elevated LFTs - poss CBD obstruction. CT showed cholelithiasis, biliary duct dilataton consistent with obstruction at level of ampulla, no def mass. LFTs are elevated and have decreased since yesterday, tbil is WNL. lipase WNL. cannot have MRCP d/t plate in his head. d/w GS and they have requested ERCP with distal CBD brushings 05/01/l8 s/p lap [place]. has cholecystostomy drain. c/o abd pain, mostly around drain sites. PLAN - diet and mgmt per GS - monitor labs -supportive care GI will sign off, please reconsult if needed pt seen by myself and Dr Taylor and this note is on his behalf (Jessica Clemons) Physician Comments Agree with above plan. Please notify us if needed again. (Vladimir Taylor MD) Jessica Clemons May 01, 2017 12:16 Vladimir Taylor MD May 01, 2017 12:42
[2017-05-01] MEDS: oxyCODONE/ACETAMINOPHEN 7.5 MG/325 MG TAB PO PRN ×3 (12:26→20:40)
[2017-05-01] MEDS ORDERED: HEPARIN SODIUM - SQ 10,000 UNITS/ML VIAL SQ SCH (20:00)
[2017-05-01] MEDS: CALCIUM CARBONATE 500 MG CHEWABLE TAB CHEW SCH (20:13)
[2017-05-01] MEDS: HEPARIN SODIUM - SQ 10,000 UNITS/ML VIAL SQ SCH (20:13)
[2017-05-02] VITALS: BP 154/81; PULSE 69; RESP 16; TEMP 96.5; O2SAT 91
[2017-05-02] MEDS: D5-NS + KCL 40 MEQ INJ 1,000 ML IV SCH ×4 (00:30→23:35)
[2017-05-02] MEDS: oxyCODONE/ACETAMINOPHEN 7.5 MG/325 MG TAB PO PRN ×2 (00:46→06:16)
[2017-05-02] MEDS: SODIUM CHLORIDE 0.9% FLUSH 10 ML FLUSH IV FLUSH SCH ×2 (07:49→20:44)
[2017-05-02] MEDS: MORPHINE SULFATE 2 MG/ML INJ IV PUSH PRN ×2 (07:52→20:49)
[2017-05-02] MEDS: PHENYTOIN SODIUM 100 MG CAP PO SCH ×3 (07:55→16:08)
[2017-05-02] MEDS: DOCUSATE SODIUM 50 MG/SENNA 8.6 MG TAB PO SCH ×2 (07:55→20:45)
[2017-05-02] MEDS: HEPARIN SODIUM - SQ 10,000 UNITS/ML VIAL SQ SCH (07:55)
[2017-05-02] MEDS: ASPIRIN 81 MG CHEW TAB CHEW SCH (07:55)
[2017-05-02] MEDS: LISINOPRIL 20 MG TAB PO SCH (07:56)
[2017-05-02] MEDS: CALCIUM CARBONATE 500 MG CHEWABLE TAB CHEW SCH ×2 (07:56→20:44)
[2017-05-02] MEDS: PRAVASTATIN SOD 20 MG TAB PO SCH (07:56)
[2017-05-02 08:00] VITALS: BP 179/93; PULSE 89; RESP 22; TEMP 98.3; O2SAT 93
--- NOTE | 2017-05-02 08:37 | HHI.FPPN ---
Subjective Remarks No acute events overnight. Patient continues to complain of abdominal pain and nausea. States he felt more nauseated after taking Percocet overnight. He has been able to tolerate po fluids to this point. Denies CP, SOB (Chuck Aly MD R1) Objective Vitals Vital Signs Date Time Temp Pulse Resp B/P (MAP) Pulse Ox O2 Delivery O2 Flow Rate FiO2 05/02/17 02:05 20 05/02/17 00:00 96.5 69 16 154/81 (105) 91 05/01/17 20:17 93 05/01/17 20:00 96.6 72 16 157/82 (107) 91 05/01/17 16:00 97.5 69 17 162/85 (110) 92 05/01/17 12:00 100.0 76 18 154/76 (102) 90 I/O 05/01/17 05/01/17 05/01/17 05/02/17 05/02/17 05/02/17 07:00 15:00 23:00 07:00 15:00 23:00 Intake Total 680 ml 1540 ml 0 ml Output Total 1284 ml 150 ml 770 ml 600 ml 720 ml Balance -604 ml -150 ml 770 ml -600 ml -720 ml Intake Oral 680 ml 540 ml 0 ml IV Total 1000 ml Output Urine Total 1000 ml 550 ml 600 ml Drainage Total 284 ml 150 ml 220 ml 720 ml # Bowel Movements 0 0 (Chuck Aly MD R1) Result Diagram: 05/01/17 0942 05/01/17 0942 Objective Remarks GEN: Well-developed, well-nourished patient. No acute distress. CV: Regular rate and rhythm without obvious murmurs LUNGS: Clear to auscultation bilaterally but taking shallow breaths due to pain. No wheezes, rales, rhonchi. GI: Soft, nondistended. Bowel sounds present. Patient has 2 right upper quadrant drains, one with small amount of serosanguineous fluid drainage and one with bilious drainage. Dressing over right upper quadrant skin area is clean. Trocar dressing at umbilicus is clean. EXT: No edema. No calf tenderness. NEURO/PSYCH: Awake, alert. Appropriate insight and judgment. Normal speech Procedures Open cholecystectomy 05/[address] Edmondson (Chuck Aly MD R1) Date of Insertion: Apr 30, 2017 (Chuck Aly MD R1) A/P Assessment and Plan 67-year-old male with a history of hypertension, dyslipidemia, seizure disorder secondary to traumatic brain injury being admitted from the [facility] emergency department after presenting with abdominal pain and found to have choledocholithiasis on CT scan. GI and general surgery consulted. Open cholecystectomy performed 04/30. Discharge Planning Patient possibly to have 2-3 days more in the hospital as he did have open cholecystectomy Disposition likely to home, will have PT evaluate (Chuck Aly MD R1) Attending Attestation Patient seen and examined. Nausea is resolved, patient is currently pain-free. Case reviewed and discussed with the resident team. Agree with plan of care as discussed with me and documented in the resident note. (Lenka De La Rosa MD) Problem List: (1) Status post cholecystectomy ICD Codes: Z90.49 - Acquired absence of other specified parts of digestive tract Status: Acute Plan: POD # 2 Patient had laparoscopic cholecystectomy conversion to open cholecystectomy with common bile duct expiration, stone extraction, and cholangioscopy with T- tube placement T tube in place draining serosanguineous fluid Biliary drain in place Mild postoperative anemia, but stable Per general surgery, will work on pain regimen, clear liquid diet for now, encourage activity Continues to have abdominal pain/nausea. Associates nausea with Percocet - will adjust pain management Plan: * Increase activity * PT ordered * EZ pap ordered * Incentive spirometry Pain medications: * Ketorolac 15 mg IV q6hr for pain 1-5 * Ketorolac 30 mg IV q6hr for pain 6-10 * Continue morphine 4 mg IV every 3 hours for breakthrough pain * Scheduled IV Tylenol 1000 mg/100mL IV q6hr (2) Cholelithiasis with choledocholithiasis ICD Codes: K80.70 - Calculus of gallbladder and bile duct without cholecystitis without obstruction Status: Resolved Plan: Patient is status post surgery, performed 04/30 Management as above Hospital course: Patient presenting with colicky right upper quadrant/epigastric pain that initially started 6 months ago but is progressively worsened over the last 1.5 weeks and has been associated with nausea and vomiting over the last 1.5 weeks Patient noted to have scleral icterus and sublingual jaundice on admission exam CT scan in the ED suspicious for choledocholithiasis or distal CBD stricture with recommendations for ERCP for further evaluation Elevated liver enzymes on initial labs No elevated lipase or elevation in bilirubin on initial labs No fevers or chills, no leukocytosis since admission Repeat labs showed improvement in liver enzymes, but still elevated. AST 256 on admission --> 92 on 05/01 ALT 581 on admission -> 208 on 05/01 Alkaline phosphatase 454 on admission -> 335 on 05/01 AM labs pending on 05/02 - will follow up Consulted GI and general surgery, appreciate recommendations and manage GI signed off on 05/01 Pain scale as above Zofran 4 mg IV as needed for nausea (3) Nausea & vomiting ICD Codes: R11.2 - Nausea with vomiting, unspecified Status: Resolved Plan: Patient complaining of nausea on 05/02 Continue Zofran as needed for nausea Hyperkalemia noted last night, resolved this morning Hospital course: Presented with nausea and vomiting for over 1 week prior to admission Likely secondary to cholelithiasis/choledocholithiasis Electrolytes within normal limits on admission (4) 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 No further imaging documented CXR negative on admission CT chest 04/29 showing moderate emphysema, atelectatic changes, coronary calcifications, gallstone, tiny 3-4 millimeter nodules in the right upper lobe of the lung Patient denies any knowledge of the prior CT findings, denies shortness of breath at baseline We will monitor respiratory status postoperatively (5) HTN (hypertension) ICD Codes: I10 - Essential (primary) hypertension Status: Chronic Plan: Patient with a known history of hypertension SBP 150s-160s over last 24hr. We will monitor and adjust home regimen as needed. It is noted that he is also in pain which may be contributing to elevated levels Continuing home medications lisinopril 40 mg daily Vasotec 1.25 mg IV every 6 hours as needed for systolic blood pressure over 170 , diastolic blood pressure over 100 (6) Seizure disorder ICD Codes: G40.909 - Epilepsy, unspecified, not intractable, without status epilepticus Plan: Patient has been on Dilantin since his traumatic brain injury at age 19 He says that he was told by his doctor then that he should continue to take the Dilantin to avoid having seizures Has not had his medications over the last several days due to nausea and vomiting Resuming home Dilantin dose of 100 mg by mouth 3 times a day (7) Transaminitis ICD Codes: R74.0 - Nonspecific elevation of levels of transaminase and lactic acid dehydrogenase [LDH] Status: Acute Plan: Likely secondary to choledocholithiasis Management as above (8) History of stroke ICD Codes: Z86.73 - Personal history of transient ischemic attack (TIA), and cerebral infarction without residual deficits Plan: Patient reporting history of stroke 5 years ago with no residual effects Continuing home atorvastatin 20 mg daily Continuing home 81 mg aspirin daily (9) Dyslipidemia ICD Codes: E78.5 - Dyslipidemia Status: Chronic Plan: Patient with a history of dyslipidemia Will continue home pravastatin 20 mg daily (10) FEN Plan: Fluids: tolerating PO/LR +40 mEq KCl per liter at 125ml/hr Electrolytes: monitor and replete as needed Nutrition: Clear liquid DVT Prophylaxis: Early ambulation. Heparin 5000U subQ q12hr/bilateral SCDs GI Prophylaxis: [steroids/ventilator/GIB/burn] PRN anti-HTN: Clonidine 0.1mg PO PRN for SBP > 180/ and/or DBP > 100 nothing by mouth Constipation medications protocol ordered (Chuck Aly MD R1) Chuck Aly MD R1 May 02, 2017 08:36 Lenka De La Rosa MD May 02, 2017 12:16
[2017-05-02] MEDS ORDERED: KETOROLAC TROMETHAMINE 30 MG/ML (IVP) VIAL IV PUSH PRN ×2 (08:45)
[2017-05-02] MEDS: METOCLOPRAMIDE HCL 10 MG/2 ML VIAL IV PUSH SCH ×2 (09:48→16:09)
[2017-05-02] MEDS: ACETAMINOPHEN 1000 MG/100 ML 100 ML IV SCH ×3 (09:48→23:35)
--- NOTE | 2017-05-02 11:05 | HHI.PR ---
Subjective Subjective Notes Resting in bed "I feel pretty miserable." Son at bedside Objective Vitals/I&O Vital Signs Date Time Temp Pulse Resp B/P (MAP) Pulse Ox O2 Delivery O2 Flow Rate FiO2 05/02/17 02:05 20 05/02/17 00:00 96.5 69 154/81 (105) 91 04/30/17 15:23 Nasal Cannula 4 Radiology Last 48 hours Impressions Chest X-Ray 04/28/17 0000 Signed Impressions: Service Date/Time: April 17:23 - CONCLUSION: No evidence of acute cardiopulmonary disease. Kye Penn MD Abdomen/Pelvis CT 04/28/17 0000 Signed Impressions: Service Date/Time: April 08:13 - CONCLUSION: 1. Cholelithiasis with enlarged gallbladder and diffuse intra-and extra hepatic biliary ductal dilatation extending to the region of the ampulla consistent with obstruction at the level of the ampulla. No definite pancreatic mass or pancreatic ductal dilatation. Suspect choledocholithiasis or distal CBD stricture. Further evaluation may be performed with MRCP or ERCP as clinically appropriate. 2. Stable ancillary findings including hepatic and renal cysts some of which are too small to fully characterize, ectasia of the distal abdominal aorta, small fat containing periumbilical hernia, and prominent prostate. 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 Edmondson Dressings dry with minimal drainage T-tube with green bile; SUSAN with serosanguinous drainage The exam, history, and the medical decision-making described in the above note were completed with the assistance of the mid-level provider. I reviewed and agree with the findings presented. I attest that I had a [id number] encounter with the patient on the same day, and personally performed and documented my assessment and findings in the medical record. Carey Juan/First Heena CASTRO May 02, 2017 11:05 Rey Edmondson MD May 05, 2017 17:38
[2017-05-02 12:00] VITALS: BP 131/65; PULSE 89; RESP 20; TEMP 97.3; O2SAT 91
[2017-05-02 12:02] LABS: AUTOMATED NEUTROPHIL # 11.5 TH/MM3 (1.8-7.7); BASOPHIL # 0.1 TH/MM3 (0-0.2); BASOPHIL % 0.4 % (0.0-2.0); EOSINOPHIL % 0.3 % (0.0-4.0); HEMATOCRIT 41.2 % (39.0-51.0); HEMOGLOBIN 13.7 GM/DL (13.0-17.0); LYMPH % 5.2 % (9.0-44.0); LYMPHOCYTE # 0.7 TH/MM3 (1.0-4.8); MEAN CELL VOLUME 91.7 FL (80.0-100.0); MEAN CORPUSCULAR HEMOGLOBIN 30.4 PG (27.0-34.0); MEAN CORPUSCULAR HGB CONC 33.2 % (32.0-36.0); MEAN PLATELET VOLUME 6.9 FL (7.0-11.0); MONO % 7.1 % (0.0-8.0); MONOCYTE # 0.9 TH/MM3 (0-0.9); PLATELET COUNT 304 TH/MM3 (150-450); RED BLOOD COUNT 4.49 MIL/MM3 (4.50-5.90); RED CELL DISTRIBUTION WIDTH 13.4 % (11.6-17.2); WHITE BLOOD COUNT 13.3 TH/MM3 (4.0-11.0)
[2017-05-02 12:33] LABS: ALT (GPT) 147 U/L (12-78); AST (GOT) 30 U/L (15-37); BICARBONATE 23.2 MEQ/L (21.0-32.0); BLOOD UREA NITROGEN 8 MG/DL (7-18); CALCIUM 8.5 MG/DL (8.5-10.1); CHLORIDE 104 MEQ/L (98-107); CREATININE 1.04 MG/DL (0.60-1.30); GLOMERULAR FILTRATION RATE 71 ML/MIN (>89); GLUCOSE,RANDOM 179 MG/DL (74-106); SODIUM (NA) 136 MEQ/L (136-145)
[2017-05-02 12:36] LABS: ALKALINE PHOSPHATASE 294 U/L (45-117); TOTAL BILIRUBIN ADULT 0.5 MG/DL (0.2-1.0); TOTAL PROTEIN 7.1 GM/DL (6.4-8.2)
[2017-05-02 16:00] VITALS: BP 143/69; PULSE 73; RESP 20; TEMP 97.4; O2SAT 92
[2017-05-02 20:00] VITALS: BP 129/74; PULSE 83; RESP 18; TEMP 97.4; O2SAT 92
[2017-05-03] VITALS (7 sets, daily range): BP systolic 137–168; BP diastolic 61–82; PULSE 69–92; RESP 16–20; TEMP 96.7–99; O2SAT 92–93
[2017-05-03] MEDS: METOCLOPRAMIDE HCL 10 MG/2 ML VIAL IV PUSH SCH ×3 (02:43→16:27)
[2017-05-03] MEDS: ACETAMINOPHEN 1000 MG/100 ML 100 ML IV SCH (05:33)
[2017-05-03] MEDS: MORPHINE SULFATE 2 MG/ML INJ IV PUSH PRN ×3 (05:37→17:26)
[2017-05-03 06:17] LABS: AUTOMATED NEUTROPHIL # 5.5 TH/MM3 (1.8-7.7); BASOPHIL # 0.1 TH/MM3 (0-0.2); BASOPHIL % 0.7 % (0.0-2.0); EOSINOPHIL # 0.8 TH/MM3 (0-0.4); EOSINOPHIL % 8.6 % (0.0-4.0); HEMATOCRIT 37.3 % (39.0-51.0); HEMOGLOBIN 12.5 GM/DL (13.0-17.0); LYMPH % 18.6 % (9.0-44.0); LYMPHOCYTE # 1.6 TH/MM3 (1.0-4.8); MEAN CORPUSCULAR HEMOGLOBIN 30.9 PG (27.0-34.0); MEAN CORPUSCULAR HGB CONC 33.5 % (32.0-36.0); MEAN PLATELET VOLUME 7.3 FL (7.0-11.0); MONO % 8.4 % (0.0-8.0); MONOCYTE # 0.7 TH/MM3 (0-0.9); NEUT % 63.7 % (16.0-70.0); PLATELET COUNT 282 TH/MM3 (150-450); RED BLOOD COUNT 4.05 MIL/MM3 (4.50-5.90); RED CELL DISTRIBUTION WIDTH 12.9 % (11.6-17.2); WHITE BLOOD COUNT 8.7 TH/MM3 (4.0-11.0)
[2017-05-03 06:33] LABS: ALBUMIN 2.4 GM/DL (3.4-5.0); ALKALINE PHOSPHATASE 214 U/L (45-117); ALT (GPT) 93 U/L (12-78); AST (GOT) 19 U/L (15-37); BICARBONATE 22.3 MEQ/L (21.0-32.0); BLOOD UREA NITROGEN 12 MG/DL (7-18); CALCIUM 8.6 MG/DL (8.5-10.1); CHLORIDE 109 MEQ/L (98-107); CREATININE 1.01 MG/DL (0.60-1.30); GLOMERULAR FILTRATION RATE 73 ML/MIN (>89); GLUCOSE,RANDOM 103 MG/DL (74-106); SODIUM (NA) 140 MEQ/L (136-145); TOTAL BILIRUBIN ADULT 0.3 MG/DL (0.2-1.0)
--- NOTE | 2017-05-03 08:27 | HHI.FPPN ---
Subjective Remarks No acute events overnight. Vital signs remained stable overnight. Patient states that his nausea has improved but he still is experiencing abdominal pain in the right upper quadrant and epigastric region. He states he is hungry and wants to have something to eat/strain. Otherwise denies chest pain, shortness of breath, fevers or chills. Objective Vitals Vital Signs Date Time Temp Pulse Resp B/P (MAP) Pulse Ox O2 Delivery O2 Flow Rate FiO2 05/03/17 00:00 96.7 69 18 137/61 (86) 92 05/02/17 21:13 21 05/02/17 20:00 97.4 83 18 129/74 (92) 92 05/02/17 16:00 97.4 73 20 143/69 (93) 92 05/02/17 12:00 97.3 89 20 131/65 (87) 91 I/O 05/02/17 05/02/17 05/02/17 05/03/17 05/03/17 05/03/17 07:00 15:00 23:00 07:00 15:00 23:00 Intake Total 0 ml 240 ml 1200 ml Output Total 600 ml 1215 ml 720 ml 815 ml Balance -600 ml -1215 ml -480 ml 385 ml Intake Oral 0 ml 240 ml IV Total 1200 ml Output Urine Total 600 ml 200 ml 200 ml Drainage Total 1215 ml 520 ml 615 ml # Bowel Movements 0 0 Result Diagram: 05/03/175 05/03/17 044 Objective Remarks GEN: Well-developed, well-nourished patient. No acute distress. CV: Regular rate and rhythm without obvious murmurs LUNGS: Clear to auscultation bilaterally. Moving air well bilaterally. No wheezes, rales, rhonchi. GI: Soft, nondistended. Bowel sounds present. Patient has 2 right upper quadrant drains, one with small amount of serosanguineous fluid drainage and one with bilious drainage. Dressing over right upper quadrant skin area is clean. Trocar dressing at umbilicus is clean. EXT: No edema. No calf tenderness. NEURO/PSYCH: Awake, alert. Appropriate insight and judgment. Normal speech Procedures Open cholecystectomy 05/[address] Edmondson Date of Insertion: Apr 30, 2017 A/P Assessment and Plan 67-year-old male with a history of hypertension, dyslipidemia, seizure disorder secondary to traumatic brain injury being admitted from the [facility] emergency department after presenting with abdominal pain and found to have choledocholithiasis on CT scan. GI and general surgery consulted. Open cholecystectomy performed 04/30. Discharge Planning Patient possibly to have 1-2 days more in the hospital as he did have open cholecystectomy Disposition likely to home, will have PT evaluate Problem List: (1) Status post cholecystectomy ICD Codes: Z90.49 - Acquired absence of other specified parts of digestive tract Status: Acute Plan: POD # 3 Patient had laparoscopic cholecystectomy conversion to open cholecystectomy with common bile duct expiration, stone extraction, and cholangioscopy with T- tube placement T tube in place draining serosanguineous fluid Biliary drain in place Mild postoperative anemia, but stable Per general surgery, will work on pain regimen, was nothing by mouth on 05/02, encourage activity Reporting improvement in nausea, continues to have abdominal pain Plan: * Increase activity * PT ordered * EZ pap ordered * Incentive spirometry * Surgery started Reglan on 05/02 * Starting clear liquid diet on 05/03 Pain medications: * [place] 5mg PO q4hr for pain 1-5 * [place] 10 mg IV q4hr for pain 6-10 * Continue morphine 4 mg IV every 3 hours for breakthrough pain * Scheduled IV Tylenol 1000 mg/100mL IV q6hr (2) Cholelithiasis with choledocholithiasis ICD Codes: K80.70 - Calculus of gallbladder and bile duct without cholecystitis without obstruction Status: Resolved Plan: Patient is status post surgery, performed 04/30 Management as above Hospital course: Patient presenting with colicky right upper quadrant/epigastric pain that initially started 6 months ago but is progressively worsened over the last 1.5 weeks and has been associated with nausea and vomiting over the last 1.5 weeks Patient noted to have scleral icterus and sublingual jaundice on admission exam CT scan in the ED suspicious for choledocholithiasis or distal CBD stricture with recommendations for ERCP for further evaluation Elevated liver enzymes on initial labs No elevated lipase or elevation in bilirubin on initial labs No fevers or chills, no leukocytosis since admission Repeat labs showed improvement in liver enzymes, but still elevated. AST 256 on admission --> 92 on 05/01 ALT 581 on admission -> 208 on 05/01 Alkaline phosphatase 454 on admission -> 335 on 05/01 AM labs pending on 05/02 - will follow up Consulted GI and general surgery, appreciate recommendations and manage GI signed off on 05/01 Pain scale as above Zofran 4 mg IV as needed for nausea Reglan 10mg IV Q8hr scheduled for nausea (3) Nausea & vomiting ICD Codes: R11.2 - Nausea with vomiting, unspecified Status: Resolved Plan: Patient reporting improvement in nausea on 05/03 Continue Zofran as needed for nausea Reglan 10mg IV Q8hr scheduled for nausea per surgery - started on 05/02 Hospital course: Presented with nausea and vomiting for over 1 week prior to admission Likely secondary to cholelithiasis/choledocholithiasis Electrolytes within normal limits on admission (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 No further imaging documented CXR negative on admission CT chest 04/29 showing moderate emphysema, atelectatic changes, coronary calcifications, gallstone, tiny 3-4 millimeter nodules in the right upper lobe of the lung Patient denies any knowledge of the prior CT findings, denies shortness of breath at baseline We will monitor respiratory status postoperatively (5) HTN (hypertension) ICD Codes: I10 - Essential (primary) hypertension Status: Chronic Plan: Patient with a known history of hypertension SBP 150s-160s over last 24hr. We will monitor and adjust home regimen as needed. It is noted that he is also in pain which may be contributing to elevated levels Continuing home medications lisinopril 40 mg daily Vasotec 1.25 mg IV every 6 hours as needed for systolic blood pressure over 170 , diastolic blood pressure over 100 (6) Seizure disorder ICD Codes: G40.909 - Epilepsy, unspecified, not intractable, without status epilepticus Plan: Patient has been on Dilantin since his traumatic brain injury at age 19 He says that he was told by his doctor then that he should continue to take the Dilantin to avoid having seizures Has not had his medications over the last several days due to nausea and vomiting Resuming home Dilantin dose of 100 mg by mouth 3 times a day (7) Transaminitis ICD Codes: R74.0 - Nonspecific elevation of levels of transaminase and lactic acid dehydrogenase [LDH] Status: Acute Plan: Likely secondary to choledocholithiasis Management as above (8) History of stroke ICD Codes: Z86.73 - Personal history of transient ischemic attack (TIA), and cerebral infarction without residual deficits Plan: Patient reporting history of stroke 5 years ago with no residual effects Continuing home atorvastatin 20 mg daily Continuing home 81 mg aspirin daily (9) Dyslipidemia ICD Codes: E78.5 - Dyslipidemia Status: Chronic Plan: Patient with a history of dyslipidemia Will continue home pravastatin 20 mg daily (10) FEN Plan: Fluids: tolerating PO/LR +40 mEq KCl per liter at 125ml/hr Electrolytes: monitor and replete as needed Nutrition: Clear liquid diet DVT Prophylaxis: Early ambulation. Heparin 5000U subQ q12hr/bilateral SCDs GI Prophylaxis: [steroids/ventilator/GIB/burn] PRN anti-HTN: Clonidine 0.1mg PO PRN for SBP > 180/ and/or DBP > 100 nothing by mouth Constipation medications protocol ordered Chuck Aly MD R1 May 03, 2017 08:27
[2017-05-03] MEDS ORDERED: ACETAMINOPHEN/HYDROcodone 325 MG/5 MG TAB PO PRN (08:30)
[2017-05-03] MEDS: DOCUSATE SODIUM 50 MG/SENNA 8.6 MG TAB PO SCH ×2 (08:34→20:44)
[2017-05-03] MEDS: PRAVASTATIN SOD 20 MG TAB PO SCH (08:34)
[2017-05-03] MEDS: SODIUM CHLORIDE 0.9% FLUSH 10 ML FLUSH IV FLUSH SCH ×2 (08:34→20:44)
[2017-05-03] MEDS: ASPIRIN 81 MG CHEW TAB CHEW SCH (08:34)
[2017-05-03] MEDS: PHENYTOIN SODIUM 100 MG CAP PO SCH ×3 (08:34→16:26)
[2017-05-03] MEDS: LISINOPRIL 20 MG TAB PO SCH (08:34)
[2017-05-03] MEDS: PANTOPRAZOLE SOD 40 MG DELAYED RELEASE TAB PO SCH (09:30)
[2017-05-03] MEDS: D5-NS + KCL 40 MEQ INJ 1,000 ML IV SCH ×3 (09:31→20:47)
[2017-05-03] MEDS: ACETAMINOPHEN/HYDROcodone 325 MG/10 MG TAB PO PRN ×3 (11:39→20:43)
--- NOTE | 2017-05-03 16:08 | HHI.PR ---
cc: Rey Edmondson MD Subjective Subjective Notes Up to chair No issues Feeling better today Objective Vitals/I&O Vital Signs Date Time Temp Pulse Resp B/P (MAP) Pulse Ox O2 Delivery O2 Flow Rate FiO2 05/03/17 12:00 98.8 73 20 165/82 (109) 92 05/02/17 21:13 21 04/30/17 15:23 Nasal Cannula 4 Labs Laboratory Tests Test 05/03/17 04:45 White Blood Count 8.7 Red Blood Count 4.05 Hemoglobin 12.5 Hematocrit 37.3 Mean Corpuscular Volume 92.0 Mean Corpuscular Hemoglobin 30.9 Mean Corpuscular Hemoglobin Concent 33.5 Red Cell Distribution Width 12.9 Platelet Count 282 Mean Platelet Volume 7.3 Neutrophils (%) (Auto) 63.7 Lymphocytes (%) (Auto) 18.6 Monocytes (%) (Auto) 8.4 Eosinophils (%) (Auto) 8.6 Basophils (%) (Auto) 0.7 Neutrophils # (Auto) 5.5 Lymphocytes # (Auto) 1.6 Monocytes # (Auto) 0.7 Eosinophils # (Auto) 0.8 Basophils # (Auto) 0.1 CBC Comment DIFF FINAL Differential Comment Blood Urea Nitrogen 12 Creatinine 1.01 Random Glucose 103 Total Protein 6.0 Albumin 2.4 Calcium Level 8.6 Alkaline Phosphatase 214 Aspartate Amino Transf (AST/SGOT) 19 Alanine Aminotransferase (ALT/SGPT) 93 Total Bilirubin 0.3 Sodium Level 140 Potassium Level 4.8 Chloride Level 109 Carbon Dioxide Level 22.3 Anion Gap 9 Estimat Glomerular Filtration Rate 73 Radiology Last 48 hours Impressions Chest X-Ray 04/28/17 0000 Signed Impressions: Service Date/Time: April 17:23 - CONCLUSION: No evidence of acute cardiopulmonary disease. Kye Penn MD Abdomen/Pelvis CT 04/28/17 0000 Signed Impressions: Service Date/Time: April 08:13 - CONCLUSION: 1. Cholelithiasis with enlarged gallbladder and diffuse intra-and extra hepatic biliary ductal dilatation extending to the region of the ampulla consistent with obstruction at the level of the ampulla. No definite pancreatic mass or pancreatic ductal dilatation. Suspect choledocholithiasis or distal CBD stricture. Further evaluation may be performed with MRCP or ERCP as clinically appropriate. 2. Stable ancillary findings including hepatic and renal cysts some of which are too small to fully characterize, ectasia of the distal abdominal aorta, small fat containing periumbilical hernia, and prominent prostate. 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 Edmondson Abdomen moderately distended, but nontender, except for incision Bili bag with large amt green bile; SUSAN serosanguinous The exam, history, and the medical decision-making described in the above note were completed with the assistance of the mid-level provider. I reviewed and agree with the findings presented. I attest that I had a [id number] encounter with the patient on the same day, and personally performed and documented my assessment and findings in the medical record. Carey Juan/First Heena CASTRO May 03, 2017 16:08 Rey Edmondson MD May 05, 2017 17:46
[2017-05-03] MEDS: HEPARIN SODIUM - SQ 10,000 UNITS/ML VIAL SQ SCH (20:44)
[2017-05-04] VITALS: BP 166/77; PULSE 81; RESP 18; TEMP 98.9; O2SAT 93
[2017-05-04] MEDS: ACETAMINOPHEN/HYDROcodone 325 MG/10 MG TAB PO PRN (01:51)
[2017-05-04] MEDS: METOCLOPRAMIDE HCL 10 MG/2 ML VIAL IV PUSH SCH ×2 (04:19→09:51)
[2017-05-04] MEDS: D5-NS + KCL 40 MEQ INJ 1,000 ML IV SCH (04:19)
[2017-05-04 08:00] VITALS: BP 163/87; PULSE 91; RESP 16; TEMP 95.3; O2SAT 94
[2017-05-04] MEDS: HEPARIN SODIUM - SQ 10,000 UNITS/ML VIAL SQ SCH ×2 (08:34→22:29)
[2017-05-04] MEDS: PANTOPRAZOLE SOD 40 MG DELAYED RELEASE TAB PO SCH (08:34)
[2017-05-04] MEDS: PRAVASTATIN SOD 20 MG TAB PO SCH (08:35)
[2017-05-04] MEDS: ASPIRIN 81 MG CHEW TAB CHEW SCH (08:35)
[2017-05-04] MEDS: SODIUM CHLORIDE 0.9% FLUSH 10 ML FLUSH IV FLUSH SCH ×2 (08:35→22:22)
[2017-05-04] MEDS: DOCUSATE SODIUM 50 MG/SENNA 8.6 MG TAB PO SCH ×2 (08:35→21:00)
[2017-05-04] MEDS: PHENYTOIN SODIUM 100 MG CAP PO SCH ×3 (08:35→18:28)
[2017-05-04] MEDS: LISINOPRIL 20 MG TAB PO SCH (08:35)
[2017-05-04 11:52] LABS: AUTOMATED NEUTROPHIL # 5.2 TH/MM3 (1.8-7.7); BASOPHIL # 0.1 TH/MM3 (0-0.2); EOSINOPHIL # 0.5 TH/MM3 (0-0.4); EOSINOPHIL % 6.7 % (0.0-4.0); HEMATOCRIT 36.8 % (39.0-51.0); HEMOGLOBIN 12.4 GM/DL (13.0-17.0); LYMPH % 17.9 % (9.0-44.0); LYMPHOCYTE # 1.4 TH/MM3 (1.0-4.8); MEAN CELL VOLUME 90.6 FL (80.0-100.0); MEAN CORPUSCULAR HEMOGLOBIN 30.5 PG (27.0-34.0); MEAN CORPUSCULAR HGB CONC 33.7 % (32.0-36.0); MEAN PLATELET VOLUME 6.8 FL (7.0-11.0); MONOCYTE # 0.7 TH/MM3 (0-0.9); NEUT % 65.4 % (16.0-70.0); PLATELET COUNT 361 TH/MM3 (150-450); RED BLOOD COUNT 4.06 MIL/MM3 (4.50-5.90); RED CELL DISTRIBUTION WIDTH 13.2 % (11.6-17.2)
[2017-05-04 12:00] VITALS: BP 165/62; PULSE 81; RESP 17; TEMP 98.7; O2SAT 92
[2017-05-04 12:15] LABS: ALBUMIN 2.6 GM/DL (3.4-5.0); AST (GOT) 25 U/L (15-37); BICARBONATE 21.9 MEQ/L (21.0-32.0); BLOOD UREA NITROGEN 10 MG/DL (7-18); CALCIUM 8.3 MG/DL (8.5-10.1); CHLORIDE 108 MEQ/L (98-107); CREATININE 0.92 MG/DL (0.60-1.30); GLOMERULAR FILTRATION RATE 82 ML/MIN (>89); GLUCOSE,RANDOM 111 MG/DL (74-106); SODIUM (NA) 139 MEQ/L (136-145)
[2017-05-04 12:20] LABS: ALKALINE PHOSPHATASE 180 U/L (45-117); ALT (GPT) 75 U/L (12-78); TOTAL BILIRUBIN ADULT 0.3 MG/DL (0.2-1.0); TOTAL PROTEIN 6.1 GM/DL (6.4-8.2)
--- NOTE | 2017-05-04 12:22 | HHI.FPPN ---
Subjective Remarks No acute events overnight. Patient states that he and the nurse stumbled while she was tried to assist him to the bathroom last night. He initially had some abdominal pain but nothing residual. He denies nausea, vomiting and desires to eat a regular meal. Has passed gas and had a bowel movement. Chest pain or shortness of breath. He he is still complaining of postsurgical abdominal pain, however it has been nearly 12 hours since his last dose of [place]. Discussed with patient the importance of staying on top of the pain as opposed to chasing it with pain medication. Objective Vitals Vital Signs Date Time Temp Pulse Resp B/P (MAP) Pulse Ox O2 Delivery O2 Flow Rate FiO2 05/04/17 08:00 95.3 91 16 163/87 (112) 94 05/04/17 00:00 98.9 81 18 166/77 (106) 93 05/03/17 23:46 93 05/03/17 20:00 99.0 91 16 140/72 (94) 92 05/03/17 16:00 97.9 92 20 168/82 (110) 93 I/O 05/03/17 05/03/17 05/03/17 05/04/17 05/04/17 05/04/17 07:00 15:00 23:00 07:00 15:00 23:00 Intake Total 1200 ml 1720 ml Output Total 815 ml 1245 ml 300 ml Balance 385 ml 475 ml -300 ml Intake Oral 720 ml IV Total 1200 ml 1000 ml Output Urine Total 200 ml 450 ml 300 ml Drainage Total 615 ml 795 ml # Bowel Movements 1 1 Result Diagram: 05/04/17 1110 05/04/17 1110 Objective Remarks GEN: Well-developed, well-nourished patient. No acute distress. Patient able to sit up in bed with minimal assistance CV: Regular rate and rhythm without obvious murmurs LUNGS: Clear to auscultation bilaterally. Moving air well bilaterally. No wheezes, rales, rhonchi. GI: Soft, nondistended. Bowel sounds present. Patient has 2 right upper quadrant drains, one with small amount of serosanguineous fluid drainage and one with bilious drainage. Dressing over right upper quadrant skin area is clean. Trocar dressing at umbilicus is clean. EXT: No edema. No calf tenderness. NEURO/PSYCH: Awake, alert. Appropriate insight and judgment. Normal speech Procedures Open cholecystectomy 05/[address] Edmondson Date of Insertion: Apr 30, 2017 A/P Assessment and Plan 67-year-old male with a history of hypertension, dyslipidemia, seizure disorder secondary to traumatic brain injury being admitted from the [facility] emergency department after presenting with abdominal pain and found to have choledocholithiasis on CT scan. GI and general surgery consulted. Open cholecystectomy performed 04/30. Discharge Planning Patient possibly to have 1-2 days more in the hospital as he did have open cholecystectomy Disposition likely to home, will have PT evaluate Problem List: (1) Status post cholecystectomy ICD Codes: Z90.49 - Acquired absence of other specified parts of digestive tract Status: Acute Plan: POD # 4 Patient had laparoscopic cholecystectomy conversion to open cholecystectomy with common bile duct expiration, stone extraction, and cholangioscopy with T- tube placement T tube in place draining serosanguineous fluid Biliary drain in place Mild postoperative anemia, but stable Per general surgery, will work on pain regimen, was nothing by mouth on 05/02, encourage activity Reporting improvement in nausea, continues to have abdominal pain and has had trouble staying on top of his pain with PRN medications Plan: * Increase activity * PT ordered * EZ pap ordered * Incentive spirometry * Surgery started Reglan on 05/02 * Starting clear liquid diet on 05/03 Pain medications: * [place] 10 mg IV q6hr scheduled - will hold for sedation or decreased RR * Continue morphine 4 mg IV every 3 hours for breakthrough pain * Scheduled IV Tylenol 1000 mg/100mL IV q6hr (2) Cholelithiasis with choledocholithiasis ICD Codes: K80.70 - Calculus of gallbladder and bile duct without cholecystitis without obstruction Status: Resolved Plan: Patient is status post surgery, performed 04/30 Management as above Hospital course: Patient presenting with colicky right upper quadrant/epigastric pain that initially started 6 months ago but is progressively worsened over the last 1.5 weeks and has been associated with nausea and vomiting over the last 1.5 weeks Patient noted to have scleral icterus and sublingual jaundice on admission exam CT scan in the ED suspicious for choledocholithiasis or distal CBD stricture with recommendations for ERCP for further evaluation Elevated liver enzymes on initial labs No elevated lipase or elevation in bilirubin on initial labs No fevers or chills, no leukocytosis since admission Repeat labs showed improvement in liver enzymes, but still elevated. AST 256 on admission --> 25 on 05/04 ALT 581 on admission -> 75 on 05/04 Alkaline phosphatase 454 on admission -> 180 on 05/04 Consulted GI and general surgery, appreciate recommendations and manage GI signed off on 05/01 Pain scale as above Zofran 4 mg IV as needed for nausea Discontinued Reglan on 05/04 (3) Nausea & vomiting ICD Codes: R11.2 - Nausea with vomiting, unspecified Status: Resolved Plan: Patient reporting improvement in nausea on 05/04 Continue Zofran as needed for nausea Advancing to full liquid diet on 05/04 Decreasing IVF to 75mL/hr Hospital course: Presented with nausea and vomiting for over 1 week prior to admission Likely secondary to cholelithiasis/choledocholithiasis Electrolytes within normal limits on admission (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 No further imaging documented CXR negative on admission CT chest 04/29 showing moderate emphysema, atelectatic changes, coronary calcifications, gallstone, tiny 3-4 millimeter nodules in the right upper lobe of the lung Patient denies any knowledge of the prior CT findings, denies shortness of breath at baseline We will monitor respiratory status postoperatively (5) HTN (hypertension) ICD Codes: I10 - Essential (primary) hypertension Status: Chronic Plan: Patient with a known history of hypertension SBP 150s-160s over last 24hr. We will monitor and adjust home regimen as needed. It is noted that he is also in pain which may be contributing to elevated levels Continuing home medications lisinopril 40 mg daily Vasotec 1.25 mg IV every 6 hours as needed for systolic blood pressure over 170 , diastolic blood pressure over 100 (6) Seizure disorder ICD Codes: G40.909 - Epilepsy, unspecified, not intractable, without status epilepticus Plan: Patient has been on Dilantin since his traumatic brain injury at age 19 He says that he was told by his doctor then that he should continue to take the Dilantin to avoid having seizures Has not had his medications over the last several days due to nausea and vomiting Resuming home Dilantin dose of 100 mg by mouth 3 times a day (7) Transaminitis ICD Codes: R74.0 - Nonspecific elevation of levels of transaminase and lactic acid dehydrogenase [LDH] Status: Acute Plan: Likely secondary to choledocholithiasis Management as above (8) History of stroke ICD Codes: Z86.73 - Personal history of transient ischemic attack (TIA), and cerebral infarction without residual deficits Plan: Patient reporting history of stroke 5 years ago with no residual effects Continuing home atorvastatin 20 mg daily Continuing home 81 mg aspirin daily (9) Dyslipidemia ICD Codes: E78.5 - Dyslipidemia Status: Chronic Plan: Patient with a history of dyslipidemia Will continue home pravastatin 20 mg daily (10) FEN Plan: Fluids: tolerating PO/LR +40 mEq KCl per liter at 75ml/hr Electrolytes: monitor and replete as needed Nutrition: Full liquid diet DVT Prophylaxis: Early ambulation. Heparin 5000U subQ q12hr/bilateral SCDs GI Prophylaxis: [steroids/ventilator/GIB/burn] PRN anti-HTN: Vasotec 0.1mg PO PRN for SBP > 180/ and/or DBP > 100 nothing by mouth Constipation medications protocol ordered Chuck Aly MD R1 May 04, 2017 12:22
[2017-05-04] MEDS ORDERED: ACETAMINOPHEN/HYDROcodone 325 MG/10 MG TAB PO SCH (13:00)
--- NOTE | 2017-05-04 13:27 | HHI.PR ---
Subjective Subjective Notes Resting in bed Feeling better today Son at bedside Would like to eat something more Objective Vitals/I&O Vital Signs Date Time Temp Pulse Resp B/P (MAP) Pulse Ox O2 Delivery O2 Flow Rate FiO2 05/04/17 12:00 98.7 81 17 165/62 (96) 92 05/02/17 21:13 21 04/30/17 15:23 Nasal Cannula 4 Labs Laboratory Tests Test 05/04/17 11:10 White Blood Count 8.0 Red Blood Count 4.06 Hemoglobin 12.4 Hematocrit 36.8 Mean Corpuscular Volume 90.6 Mean Corpuscular Hemoglobin 30.5 Mean Corpuscular Hemoglobin Concent 33.7 Red Cell Distribution Width 13.2 Platelet Count 361 Mean Platelet Volume 6.8 Neutrophils (%) (Auto) 65.4 Lymphocytes (%) (Auto) 17.9 Monocytes (%) (Auto) 9.0 Eosinophils (%) (Auto) 6.7 Basophils (%) (Auto) 1.0 Neutrophils # (Auto) 5.2 Lymphocytes # (Auto) 1.4 Monocytes # (Auto) 0.7 Eosinophils # (Auto) 0.5 Basophils # (Auto) 0.1 CBC Comment DIFF FINAL Differential Comment Blood Urea Nitrogen 10 Creatinine 0.92 Random Glucose 111 Total Protein 6.1 Albumin 2.6 Calcium Level 8.3 Alkaline Phosphatase 180 Aspartate Amino Transf (AST/SGOT) 25 Alanine Aminotransferase (ALT/SGPT) 75 Total Bilirubin 0.3 Sodium Level 139 Potassium Level 4.5 Chloride Level 108 Carbon Dioxide Level 21.9 Anion Gap 9 Estimat Glomerular Filtration Rate 82 Radiology Last 48 hours Impressions Chest X-Ray 04/28/17 0000 Signed Impressions: Service Date/Time: April 17:23 - CONCLUSION: No evidence of acute cardiopulmonary disease. Kye Penn MD Abdomen/Pelvis CT 04/28/17 0000 Signed Impressions: Service Date/Time: April 08:13 - CONCLUSION: 1. Cholelithiasis with enlarged gallbladder and diffuse intra-and extra hepatic biliary ductal dilatation extending to the region of the ampulla consistent with obstruction at the level of the ampulla. No definite pancreatic mass or pancreatic ductal dilatation. Suspect choledocholithiasis or distal CBD stricture. Further evaluation may be performed with MRCP or ERCP as clinically appropriate. 2. Stable ancillary findings including hepatic and renal cysts some of which are too small to fully characterize, ectasia of the distal abdominal aorta, small fat containing periumbilical hernia, and prominent prostate. Carlos Trotter MD Cardiovascular: Regular Lungs: Clear Abdomen: Other (USSAN with SS drainage; T tube with bilious output; abdomen soft minimally tender ) Extremities: No edema A/P Assessment and Plan 67 year old male POD4 open cholecystectomy; CBD exploration; stone extraction; T tube placement -Ileus seems to have resolved -Advance to full liquid diet -DC Reglan -Labs stable -Pain control -Heparin subQ -Decrease IVF -Zofran available Attending Note - Dr. Edmondson T-tube clamped today; monitor SUSAN output and color Advance diet Stable The exam, history, and the medical decision-making described in the above note were completed with the assistance of the mid-level provider. I reviewed and agree with the findings presented. I attest that I had a [id number] encounter with the patient on the same day, and personally performed and documented my assessment and findings in the medical record. Craey JuanP/[employer] May 04, 2017 13:27 Rey Edmondson MD May 05, 2017 17:47
[2017-05-04] MEDS: MORPHINE SULFATE 2 MG/ML INJ IV PUSH PRN ×2 (15:12→22:21)
[2017-05-04 16:00] VITALS: BP 138/67; PULSE 77; RESP 18; TEMP 99.4; O2SAT 92
[2017-05-04] MEDS: ACETAMINOPHEN/HYDROcodone 325 MG/10 MG TAB PO SCH (18:29)
[2017-05-04 20:00] VITALS: BP 129/66; PULSE 81; RESP 18; TEMP 98.2; O2SAT 94
[2017-05-05] VITALS: BP 145/88; PULSE 81; RESP 20; TEMP 98.4; O2SAT 94
[2017-05-05] MEDS: ACETAMINOPHEN/HYDROcodone 325 MG/10 MG TAB PO SCH ×4 (01:42→18:59)
[2017-05-05 08:00] VITALS: BP 141/67; PULSE 68; RESP 17; TEMP 97.6; O2SAT 91
[2017-05-05 08:34] LABS: AUTOMATED NEUTROPHIL # 4.7 TH/MM3 (1.8-7.7); BASOPHIL # 0.1 TH/MM3 (0-0.2); EOSINOPHIL # 0.8 TH/MM3 (0-0.4); EOSINOPHIL % 10.5 % (0.0-4.0); HEMATOCRIT 39.9 % (39.0-51.0); HEMOGLOBIN 13.5 GM/DL (13.0-17.0); LYMPH % 20.2 % (9.0-44.0); LYMPHOCYTE # 1.6 TH/MM3 (1.0-4.8); MEAN CELL VOLUME 90.6 FL (80.0-100.0); MEAN CORPUSCULAR HEMOGLOBIN 30.7 PG (27.0-34.0); MEAN CORPUSCULAR HGB CONC 33.9 % (32.0-36.0); MEAN PLATELET VOLUME 6.7 FL (7.0-11.0); MONO % 9.3 % (0.0-8.0); MONOCYTE # 0.7 TH/MM3 (0-0.9); PLATELET COUNT 430 TH/MM3 (150-450); WHITE BLOOD COUNT 7.9 TH/MM3 (4.0-11.0)
[2017-05-05] MEDS: DOCUSATE SODIUM 50 MG/SENNA 8.6 MG TAB PO SCH ×2 (09:00→21:00)
[2017-05-05 09:01] LABS: ALBUMIN 2.9 GM/DL (3.4-5.0); AST (GOT) 44 U/L (15-37); BICARBONATE 21.4 MEQ/L (21.0-32.0); BLOOD UREA NITROGEN 9 MG/DL (7-18); CALCIUM 8.6 MG/DL (8.5-10.1); CHLORIDE 105 MEQ/L (98-107); GLOMERULAR FILTRATION RATE 74 ML/MIN (>89); GLUCOSE,RANDOM 94 MG/DL (74-106); SODIUM (NA) 136 MEQ/L (136-145)
[2017-05-05 09:02] LABS: ALT (GPT) 94 U/L (12-78)
[2017-05-05 09:05] LABS: ALKALINE PHOSPHATASE 189 U/L (45-117); TOTAL BILIRUBIN ADULT 0.4 MG/DL (0.2-1.0); TOTAL PROTEIN 6.7 GM/DL (6.4-8.2)
[2017-05-05] MEDS: PHENYTOIN SODIUM 100 MG CAP PO SCH ×3 (09:59→18:58)
[2017-05-05] MEDS: PANTOPRAZOLE SOD 40 MG DELAYED RELEASE TAB PO SCH (09:59)
[2017-05-05] MEDS: ASPIRIN 81 MG CHEW TAB CHEW SCH (09:59)
[2017-05-05] MEDS: PRAVASTATIN SOD 20 MG TAB PO SCH (09:59)
[2017-05-05] MEDS: LISINOPRIL 20 MG TAB PO SCH (10:00)
[2017-05-05] MEDS: HEPARIN SODIUM - SQ 10,000 UNITS/ML VIAL SQ SCH ×2 (10:01→21:00)
[2017-05-05] MEDS: MORPHINE SULFATE 2 MG/ML INJ IV PUSH PRN ×2 (10:10→16:25)
[2017-05-05] MEDS: SODIUM CHLORIDE 0.9% FLUSH 10 ML FLUSH IV FLUSH SCH ×2 (10:10→22:55)
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
[2017-05-05 12:00] VITALS: BP 141/81; PULSE 84; RESP 18; TEMP 96.6; O2SAT 99
--- NOTE | 2017-05-05 12:43 | HHI.PR ---
Subjective Subjective Notes Eating lunch No issues Worried about small bruise on his RIGHT arm Objective Vitals/I&O Vital Signs Date Time Temp Pulse Resp B/P (MAP) Pulse Ox O2 Delivery O2 Flow Rate FiO2 05/05/17 08:00 97.6 68 17 141/67 (91) 91 05/04/17 21:25 21 Labs Laboratory Tests Test 05/05/17 07:50 White Blood Count 7.9 Red Blood Count 4.40 Hemoglobin 13.5 Hematocrit 39.9 Mean Corpuscular Volume 90.6 Mean Corpuscular Hemoglobin 30.7 Mean Corpuscular Hemoglobin Concent 33.9 Red Cell Distribution Width 13.0 Platelet Count 430 Mean Platelet Volume 6.7 Neutrophils (%) (Auto) 59.0 Lymphocytes (%) (Auto) 20.2 Monocytes (%) (Auto) 9.3 Eosinophils (%) (Auto) 10.5 Basophils (%) (Auto) 1.0 Neutrophils # (Auto) 4.7 Lymphocytes # (Auto) 1.6 Monocytes # (Auto) 0.7 Eosinophils # (Auto) 0.8 Basophils # (Auto) 0.1 CBC Comment DIFF FINAL Differential Comment Blood Urea Nitrogen 9 Creatinine 1.00 Random Glucose 94 Total Protein 6.7 Albumin 2.9 Calcium Level 8.6 Alkaline Phosphatase 189 Aspartate Amino Transf (AST/SGOT) 44 Alanine Aminotransferase (ALT/SGPT) 94 Total Bilirubin 0.4 Sodium Level 136 Potassium Level 4.0 Chloride Level 105 Carbon Dioxide Level 21.4 Anion Gap 10 Estimat Glomerular Filtration Rate 74 Radiology Last 48 hours Impressions Chest X-Ray 04/28/17 0000 Signed Impressions: Service Date/Time: April 17:23 - CONCLUSION: No evidence of acute cardiopulmonary disease. Kye Penn MD Abdomen/Pelvis CT 04/28/17 0000 Signed Impressions: Service Date/Time: April 08:13 - CONCLUSION: 1. Cholelithiasis with enlarged gallbladder and diffuse intra-and extra hepatic biliary ductal dilatation extending to the region of the ampulla consistent with obstruction at the level of the ampulla. No definite pancreatic mass or pancreatic ductal dilatation. Suspect choledocholithiasis or distal CBD stricture. Further evaluation may be performed with MRCP or ERCP as clinically appropriate. 2. Stable ancillary findings including hepatic and renal cysts some of which are too small to fully characterize, ectasia of the distal abdominal aorta, small fat containing periumbilical hernia, and prominent prostate. Carlos Trotter MD Cardiovascular: Regular Lungs: Clear Abdomen: Other (non distended; RUQ incision; SUSAN with SS drainage; T tube clamped ) Extremities: No edema A/P Assessment and Plan 67 year old male POD5 open cholecystectomy; CBD exploration; stone extraction; T tube placement -Tolerating low fat diet -T tube clamped -Labs stable -Pain control -Heparin subQ -Zofran available -CM consult for HHC -Likely home tomorrow Attending Note - Dr. Edmondson Wound clean; vonda intact Some pain after eating lunch; had gravy with meal SUSAN output serosanguinous; no biliary drainage Discussed with son and patient; home tomorrow Follow up my office next week for T-tube removal after cholangiogram obtained. The exam, history, and the medical decision-making described in the above note were completed with the assistance of the mid-level provider. I reviewed and agree with the findings presented. I attest that I had a [id number] encounter with the patient on the same day, and personally performed and documented my assessment and findings in the medical record. Carey Juan/First Heena CASTRO May 05, 2017 12:43 Rey Edmondson MD May 05, 2017 17:51
--- NOTE | 2017-05-05 12:44 | HHI.FF ---
Face to Face Verification Diagnosis: (1) Cholelithiasis with choledocholithiasis Physical Therapy Order: Evaluate and Treat, Improve ambulation, Strength and gait training Instructions: No restrictions Home Health Nursing Order: Wound care and dressing changes Nursing assessment with vital signs Instructions: Routine SUSAN care and T tube care I have seen patient Denzel Del Valle on 05/05/17. My clinical findings support the need for the requested home health care services because: Limited ability to care for self High risk of falls I certify that my clinical findings support that this patient is homebound because: Post-op weakness Carey JuanP/Bobbin Hauler SIMULATION TECHNICIAN May 05, 2017 12:44
[2017-05-05 16:00] VITALS: BP 145/67; PULSE 73; RESP 16; TEMP 98.3; O2SAT 92
[2017-05-05] MEDS: SODIUM CHLORIDE 0.9% FLUSH 10 ML FLUSH IV FLUSH PRN (16:25)
[2017-05-05 17:37] VITALS: O2SAT 92
[2017-05-05 20:00] VITALS: BP 162/75; PULSE 112; RESP 18; TEMP 97.4; O2SAT 93
[2017-05-06] VITALS: BP 137/63; PULSE 80; RESP 18; TEMP 96.1; O2SAT 94
[2017-05-06] MEDS: ACETAMINOPHEN/HYDROcodone 325 MG/10 MG TAB PO SCH ×3 (00:03→13:13)
[2017-05-06] MEDS: HEPARIN SODIUM - SQ 10,000 UNITS/ML VIAL SQ SCH ×2 (00:03→09:01)
[2017-05-06 06:58] LABS: AUTOMATED NEUTROPHIL # 2.8 TH/MM3 (1.8-7.7); BASOPHIL # 0.1 TH/MM3 (0-0.2); BASOPHIL % 1.1 % (0.0-2.0); EOSINOPHIL # 0.6 TH/MM3 (0-0.4); EOSINOPHIL % 11.2 % (0.0-4.0); HEMATOCRIT 36.7 % (39.0-51.0); HEMOGLOBIN 12.6 GM/DL (13.0-17.0); LYMPHOCYTE # 1.5 TH/MM3 (1.0-4.8); MEAN CELL VOLUME 90.9 FL (80.0-100.0); MEAN CORPUSCULAR HEMOGLOBIN 31.2 PG (27.0-34.0); MEAN CORPUSCULAR HGB CONC 34.3 % (32.0-36.0); MEAN PLATELET VOLUME 6.8 FL (7.0-11.0); MONO % 12.2 % (0.0-8.0); MONOCYTE # 0.7 TH/MM3 (0-0.9); NEUT % 49.5 % (16.0-70.0); PLATELET COUNT 432 TH/MM3 (150-450); RED BLOOD COUNT 4.03 MIL/MM3 (4.50-5.90); RED CELL DISTRIBUTION WIDTH 12.9 % (11.6-17.2); WHITE BLOOD COUNT 5.6 TH/MM3 (4.0-11.0)
[2017-05-06 07:17] LABS: ALBUMIN 2.7 GM/DL (3.4-5.0); BICARBONATE 25.5 MEQ/L (21.0-32.0); BLOOD UREA NITROGEN 15 MG/DL (7-18); CALCIUM 8.5 MG/DL (8.5-10.1); CHLORIDE 102 MEQ/L (98-107); CREATININE 1.09 MG/DL (0.60-1.30); GLOMERULAR FILTRATION RATE 67 ML/MIN (>89); GLUCOSE,RANDOM 86 MG/DL (74-106); SODIUM (NA) 136 MEQ/L (136-145)
[2017-05-06 07:18] LABS: ALT (GPT) 72 U/L (12-78); AST (GOT) 22 U/L (15-37)
[2017-05-06 07:21] LABS: ALKALINE PHOSPHATASE 170 U/L (45-117); TOTAL BILIRUBIN ADULT 0.3 MG/DL (0.2-1.0); TOTAL PROTEIN 6.6 GM/DL (6.4-8.2)
[2017-05-06 08:00] VITALS: BP 145/73; PULSE 71; RESP 17; TEMP 96.2; O2SAT 93
[2017-05-06] MEDS ORDERED: WALKER WHEELS/F1 MIS (08:33)
[2017-05-06] MEDS ORDERED: HYDR-3583 PO (08:34)
[2017-05-06] MEDS: PHENYTOIN SODIUM 100 MG CAP PO SCH ×2 (08:59→13:13)
[2017-05-06] MEDS: PANTOPRAZOLE SOD 40 MG DELAYED RELEASE TAB PO SCH (08:59)
[2017-05-06] MEDS: LISINOPRIL 20 MG TAB PO SCH (09:00)
[2017-05-06] MEDS: ASPIRIN 81 MG CHEW TAB CHEW SCH (09:00)
[2017-05-06] MEDS: PRAVASTATIN SOD 20 MG TAB PO SCH (09:00)
[2017-05-06] MEDS: DOCUSATE SODIUM 50 MG/SENNA 8.6 MG TAB PO SCH (09:00)
[2017-05-06] MEDS: SODIUM CHLORIDE 0.9% FLUSH 10 ML FLUSH IV FLUSH SCH (09:05)
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
[2017-05-06 12:00] VITALS: BP 132/62; PULSE 80; RESP 17; TEMP 95.7; O2SAT 94
--- NOTE | 2017-05-06 14:36 | HHI.PR ---
Subjective Subjective Notes Resting in bed Ate lunch without any pain Ready to go home Objective Vitals/I&O Vital Signs Date Time Temp Pulse Resp B/P (MAP) Pulse Ox O2 Delivery O2 Flow Rate FiO2 05/06/17 12:00 95.7 80 17 132/62 (85) 94 05/06/17 11:08 21 Labs Laboratory Tests Test 05/06/17 06:25 White Blood Count 5.6 Red Blood Count 4.03 Hemoglobin 12.6 Hematocrit 36.7 Mean Corpuscular Volume 90.9 Mean Corpuscular Hemoglobin 31.2 Mean Corpuscular Hemoglobin Concent 34.3 Red Cell Distribution Width 12.9 Platelet Count 432 Mean Platelet Volume 6.8 Neutrophils (%) (Auto) 49.5 Lymphocytes (%) (Auto) 26.0 Monocytes (%) (Auto) 12.2 Eosinophils (%) (Auto) 11.2 Basophils (%) (Auto) 1.1 Neutrophils # (Auto) 2.8 Lymphocytes # (Auto) 1.5 Monocytes # (Auto) 0.7 Eosinophils # (Auto) 0.6 Basophils # (Auto) 0.1 CBC Comment DIFF FINAL Differential Comment Blood Urea Nitrogen 15 Creatinine 1.09 Random Glucose 86 Total Protein 6.6 Albumin 2.7 Calcium Level 8.5 Alkaline Phosphatase 170 Aspartate Amino Transf (AST/SGOT) 22 Alanine Aminotransferase (ALT/SGPT) 72 Total Bilirubin 0.3 Sodium Level 136 Potassium Level 3.8 Chloride Level 102 Carbon Dioxide Level 25.5 Anion Gap 9 Estimat Glomerular Filtration Rate 67 Radiology Last 48 hours Impressions Chest X-Ray 04/28/17 0000 Signed Impressions: Service Date/Time: April 17:23 - CONCLUSION: No evidence of acute cardiopulmonary disease. Kye Penn MD Abdomen/Pelvis CT 04/28/17 0000 Signed Impressions: Service Date/Time: April 08:13 - CONCLUSION: 1. Cholelithiasis with enlarged gallbladder and diffuse intra-and extra hepatic biliary ductal dilatation extending to the region of the ampulla consistent with obstruction at the level of the ampulla. No definite pancreatic mass or pancreatic ductal dilatation. Suspect choledocholithiasis or distal CBD stricture. Further evaluation may be performed with MRCP or ERCP as clinically appropriate. 2. Stable ancillary findings including hepatic and renal cysts some of which are too small to fully characterize, ectasia of the distal abdominal aorta, small fat containing periumbilical hernia, and prominent prostate. Carlos Trotter MD Cardiovascular: Regular Lungs: Clear Abdomen: Other (SUSAN with SS drainage; T tube continues to be clamped; dressing changed ) Extremities: No edema A/P Assessment and Plan 67 year old male POD6 open cholecystectomy; CBD exploration; stone extraction; T tube placement -Tolerating low fat diet -T tube clamped -Labs stable -Pain control -Heparin subQ -GS clear for today -Patient will have cholangiogram at 0900 on Tuesday; needs to stay NPO after MN Tuesday to Tuesday -Follow up at 10:20AM Carey Juan/Director Of Corporate Sponsorships ARNP May 06, 2017 14:36
[2017-05-06 16:00] VITALS: BP 133/61; PULSE 75; RESP 17; TEMP 96.1; O2SAT 94
== END 2017-05-06 16:49 | disposition home health service (06) | DRG 412 ==
LOC: PHED 07:10 → PHEDA 10:41 → N07A 15:25 → N03B 04-30 13:00 → N07B 04-30 15:27
PROVIDERS: ADMIT Family Medicine; ATTEND Family Medicine
PROC: 0FC90ZZ Extirpation of Matter from Common Bile Duct, Open Approach (ICD-10-PCS; 2017-04-30)
PROC: 0WQF0ZZ Repair Abdominal Wall, Open Approach (ICD-10-PCS; 2017-04-30)
PROC: BF101ZZ Fluoroscopy of Bile Ducts using Low Osmolar Contrast (ICD-10-PCS; 2017-04-30)
PROC: 0FT44ZZ Resection of Gallbladder, Percutaneous Endoscopic Approach (ICD-10-PCS; principal; 2017-04-30 10:16)
DX: K80.63 Calculus of gallbladder and bile duct with acute cholecystitis with obstruction (principal); K56.7 Ileus, unspecified; J43.9 Emphysema, unspecified; I10 Essential (primary) hypertension; E87.5 Hyperkalemia; K42.9 Umbilical hernia without obstruction or gangrene; E78.5 Hyperlipidemia, unspecified; R68.3 Clubbing of fingers; Z87.820 Personal history of traumatic brain injury; Z87.891 Personal history of nicotine dependence; Z53.31 Laparoscopic surgical procedure converted to open procedure; Z86.73 Personal history of transient ischemic attack (TIA), and cerebral infarction without residual deficits; D64.9 Anemia, unspecified; G40.909 Epilepsy, unspecified, not intractable, without status epilepticus
CPT/HCPCS: 71046; 71250; 74177; 74300; 80053; 81001; 83690; 83735; 84100; 84484; 85025; 85610; 85730; 88300; 88304; 93005; 94150; 94640; 96361; 96374; 96375; J0131; J0690; J1100; J1644; J1885; J2175; J2270; J2370; J2405; J2550; J2710; J2765; J3010; J3480; J7030; J7120; Q9967

== ENCOUNTER 2017-05-10 08:59 | Day surgery (SDC) | payer MEDICARE ==
[~2017-05-10 08:59] MED LIST changes: -CLIN300C5 PO; +HYDR-3583 PO; +WALKER WHEELS/F1 MIS
[2017-05-10 09:14] VITALS: BP 144/78; PULSE 78; RESP 20; TEMP 98; O2SAT 92
[2017-05-10] MEDS ORDERED: CIPR-9 PO (09:22)
[2017-05-10] MEDS ORDERED: SODIUM CHLORIDE 0.9% 1000 ML IV SCH (09:30)
[2017-05-10] MEDS ORDERED: LEVOFLOXACIN 500 MG PREMIX 100 ML - biliary drainage catheter/stent insertion IV SCH (09:30)
[2017-05-10 11:25] VITALS: BP 163/76; PULSE 68; RESP 18; TEMP 97.5; O2SAT 92
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
--- NOTE | 2017-05-10 14:09 | RADRPT ---
EXAM DATE/TIME: 05/10/2017 11:16 [facility] COMPARISON: No previous studies available for comparison. INDICATIONS : Evaluate tube ORAL CONTRAST: No oral contrast ingested. RADIATION DOSE: 9.19 CTDIvol (mGy) MEDICAL HISTORY : Cerebrovascular disease. Seizures. Cardiovascular diseaseHypertension SURGICAL HISTORY : Craniotomy. ENCOUNTER: Initial ACUITY: 1 day PAIN SCALE: 9/10 LOCATION: Abdomen TECHNIQUE: Volumetric scanning of the abdomen was performed. Using automated exposure control and adjustment of the mA and/or kV according to patient size, radiation dose was kept as low as reasonably achievable to obtain optimal diagnostic quality images. DICOM format image data is available electronically for review and comparison. FINDINGS: This examination was performed to evaluate the patient's T-tube. The T-tube is no longer within the b iliary tree. It resides within the region of the gallbladder fossa. No biloma is observed. No free fl uid observed to suggest a biliary leak. Bowel structures and visceral structures are unremarkable on this unopacified study. Several tiny hepatic cysts are noted. CONCLUSION: T-tube no longer within the biliary tree. No biloma or other signs of biliary leak observed. Armani Wylie Jr., MD on May 10, 2017 at 14:05 Board Certified Radiologist. This report was verified electronically.
== END 2017-05-10 11:52 | disposition home or self-care (01) ==
LOC: HROP 08:59 → HRIP 09:02 → HROP 11:52
PROVIDERS: ATTEND Surgery Trauma Surgery
DX: Z43.4 Encounter for attention to other artificial openings of digestive tract (principal); K80.70 Calculus of gallbladder and bile duct without cholecystitis without obstruction; I67.9 Cerebrovascular disease, unspecified; I10 Essential (primary) hypertension; E78.5 Hyperlipidemia, unspecified; Z86.73 Personal history of transient ischemic attack (TIA), and cerebral infarction without residual deficits
CPT/HCPCS: 47531; 74150

== ENCOUNTER 2017-06-04 07:44 | Inpatient (IN) | payer MEDICARE ==
[~2017-06-04] VITALS: Ht 182.9 cm; Wt 68.0 kg
[~2017-06-04 07:44] MED LIST changes: -ASPI81CH6 CHEW; +CIPR-9 PO; -NITR1SUB3 SL
[2017-06-04 07:49] VITALS: BP 165/83; PULSE 80; RESP 17; TEMP 98.4; O2SAT 97
[2017-06-04] MEDS ORDERED: SODIUM CHLOR 0.9% 1000 ML INJ 1,000 ML IV SCH (07:56)
[2017-06-04] MEDS ORDERED: ONDANSETRON HCL 4 MG/2 ML VIAL IVP ONE (08:00)
[2017-06-04] MEDS ORDERED: KETOROLAC TROMETHAMINE 30 MG/ML (IVP) VIAL IVP ONE (08:00)
[2017-06-04] MEDS ORDERED: SODIUM CHLORIDE 0.9% FLUSH 10 ML FLUSH IV FLUSH PRN ×2 (08:00→13:45)
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
[2017-06-04 08:32] LABS: AUTOMATED NEUTROPHIL # 6.8 TH/MM3 (1.8-7.7); BASOPHIL # 0.1 TH/MM3 (0-0.2); BASOPHIL % 0.9 % (0.0-2.0); EOSINOPHIL # 0.3 TH/MM3 (0-0.4); EOSINOPHIL % 3.5 % (0.0-4.0); HEMATOCRIT 38.2 % (39.0-51.0); HEMOGLOBIN 12.9 GM/DL (13.0-17.0); LYMPH % 12.3 % (9.0-44.0); LYMPHOCYTE # 1.2 TH/MM3 (1.0-4.8); MEAN CELL VOLUME 89.1 FL (80.0-100.0); MEAN CORPUSCULAR HEMOGLOBIN 30.1 PG (27.0-34.0); MEAN CORPUSCULAR HGB CONC 33.8 % (32.0-36.0); MEAN PLATELET VOLUME 7.1 FL (7.0-11.0); MONO % 10.5 % (0.0-8.0); NEUT % 72.8 % (16.0-70.0); PLATELET COUNT 488 TH/MM3 (150-450); RED BLOOD COUNT 4.29 MIL/MM3 (4.50-5.90); RED CELL DISTRIBUTION WIDTH 13.1 % (11.6-17.2); WHITE BLOOD COUNT 9.4 TH/MM3 (4.0-11.0)
[2017-06-04 08:40] LABS: ALT (GPT) 27 U/L (12-78)
[2017-06-04 08:43] LABS: ALKALINE PHOSPHATASE 94 U/L (45-117); TOTAL BILIRUBIN ADULT 0.4 MG/DL (0.2-1.0); TOTAL PROTEIN 8.1 GM/DL (6.4-8.2)
[2017-06-04 09:05] LABS: ALBUMIN 2.8 GM/DL (3.4-5.0); AST (GOT) 26 U/L (15-37); BICARBONATE 22.4 MEQ/L (21.0-32.0); BLOOD UREA NITROGEN 24 MG/DL (7-18); CALCIUM 9.2 MG/DL (8.5-10.1); CHLORIDE 103 MEQ/L (98-107); CREATININE 1.04 MG/DL (0.60-1.30); GLOMERULAR FILTRATION RATE 71 ML/MIN (>89); GLUCOSE,RANDOM 113 MG/DL (74-106); SODIUM (NA) 137 MEQ/L (136-145)
[2017-06-04] MEDS ORDERED: IOHEXOL 350 MG/ML 10 ML VIAL (for RAD DIAG) IVCONTRAST ONE (09:57)
--- NOTE | 2017-06-04 10:17 | RADRPT ---
EXAM DATE/TIME: 06/04/2017 09:39 [facility] COMPARISON: CT ABDOMEN & PELVIS W CONTRAST, April 28, 2017, 8:13. INDICATIONS : Abdomen pain post operative cholecystectomy two weeks ago. IV CONTRAST: 70 cc Omnipaque 350 (iohexol) IV ORAL CONTRAST: No oral contrast ingested. RADIATION DOSE: 5.11 CTDIvol (mGy) MEDICAL HISTORY : Seizures. Cardiovascular disease Hypertension. SURGICAL HISTORY : Craniotomy. Cholecystectomy. ENCOUNTER: Initial ACUITY: 1 day PAIN SCALE: 5/10 LOCATION: Right upper quadrant TECHNIQUE: Volumetric scanning of the abdomen and pelvis was performed. Using automated exposure control and ad justment of the mA and/or kV according to patient size, radiation dose was kept as low as reasonably achievable to obtain optimal diagnostic quality images. DICOM format image data is available electro nically for review and comparison. FINDINGS: LOWER LUNGS: The visualized lower lungs are clear. LIVER: The liver stable appearance with stable cystic structures again noted along the medial left lobe. The re is mild hepatic steatosis. The patient is status post interval cholecystectomy with postsurgical c hanges in the right upper quadrant. There is indistinctness surrounding the surgical clips with no de finite free air. A small amount of fluid along the liver margin. This measures up to approximately 2. 9 cm in greatest diameter and contains no gas. SPLEEN: Normal size without lesion. PANCREAS: Within normal limits. KIDNEYS: Normal in size and shape. There is no solid mass, stone or hydronephrosis. Cysts are again noted in the left kidney. ADRENAL GLANDS: Within normal limits. VASCULAR: There is no aortic aneurysm. BOWEL/MESENTERY: The stomach, small bowel, and colon demonstrate no acute abnormality. There is no free intraperitone al air or fluid. ABDOMINAL WALL: Within normal limits. RETROPERITONEUM: There is no lymphadenopathy. BLADDER: No wall thickening or mass. REPRODUCTIVE: Within normal limits. INGUINAL: There is no lymphadenopathy or hernia. MUSCULOSKELETAL: Within normal limits for patient age. CONCLUSION: Status post interval recent cholecystectomy with postsurgical changes. There is an in distinct fluid collection along the adjacent liver margin which is nonspecific. This may represent hi s postoperative fluid. An early abscess is felt to be less likely. Short-term CT followup is recommen ded in 5-7 days or as clinically indicated. Rey Hargrove MD on June 04, 2017 at 10:09 Board Certified Radiologist. This report was verified electronically.
[2017-06-04 10:58] VITALS: BP 132/69; PULSE 67; RESP 17; O2SAT 96
[2017-06-04] MEDS ORDERED: MORPHINE SULFATE 4 MG/ML INJ IV PUSH ONE (11:00)
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
[2017-06-04] MEDS: LISINOPRIL 20 MG TAB PO SCH (13:17)
[2017-06-04] MEDS: PRAVASTATIN SOD 20 MG TAB PO SCH (13:18)
[2017-06-04] MEDS: PHENYTOIN SODIUM 100 MG CAP PO SCH ×2 (13:18→17:45)
[2017-06-04 13:19] VITALS: BP 167/106; PULSE 65; RESP 16; O2SAT 97
[2017-06-04 13:28] VITALS: O2SAT 97
[2017-06-04] MEDS: SODIUM CHLOR 0.9% 1000 ML INJ 1,000 ML IV SCH ×2 (13:32→22:18)
[2017-06-04] MEDS ORDERED: BISACODYL 10 MG SUPP RECTAL PRN (13:45)
[2017-06-04] MEDS ORDERED: IBUPROFEN 400 MG TAB PO PRN (13:45)
[2017-06-04] MEDS ORDERED: MAGNESIUM HYDROXIDE SUSP 30 ML CUP PO PRN (13:45)
[2017-06-04] MEDS ORDERED: MORPHINE SULFATE 2 MG/ML SYRINGE IV PUSH PRN ×2 (13:45→17:30)
[2017-06-04] MEDS ORDERED: LACTULOSE SYRUP 20 GM/30 ML CUP PO PRN (13:45)
[2017-06-04] MEDS: PANTOPRAZOLE SOD 40 MG DELAYED RELEASE TAB PO SCH (13:45)
[2017-06-04] MEDS ORDERED: NALOXONE HCL 0.4 MG/ML AMP IV PUSH PRN (13:45)
[2017-06-04] MEDS ORDERED: KETOROLAC TROMETHAMINE 30 MG/ML (IVP) VIAL IV PUSH PRN ×4 (13:45→17:15)
[2017-06-04] MEDS ORDERED: SENNOSIDES 8.6 MG TAB PO PRN (13:45)
[2017-06-04] MEDS ORDERED: HEPARIN SODIUM - SQ 10,000 UNITS/ML VIAL SQ SCH (15:00)
--- NOTE | 2017-06-04 15:50 | PD.CONS ---
HPI History of Present Illness This is a 67 year old M who was recently admitted and underwent open cholecystectomy with CBD exploration with stone extraction and T tube placement which has since been removed. Pt has since followed up with Dr. Edmondson on June 01 who mentioned that the pain may persist for months following the surgery. Pt came to the ER today complaining of epigastric pain, states pain began on Tuesday after eating. Described the pain as sharp and stabbing, did not eat on to try and avoid the pain. Tried eating again on Tuesday with similar episode. Associated nausea and vomiting. Denies hematemesis and coffee ground emesis. One episode of diarrhea on Tuesday, denies blood in stool. Pt also with RUQ abdominal pain but this seems to be since prior to the surgery mentioned above. Also complaining of acid reflux, few times a month, takes Tums as needed with good relief. Pt denies ever having EGD or colonoscopy. Has been taking NSAIDs post surgically for pain. Denies ETOH, smoking. States has seen his PCP for this issue who was concerned he may have a stomach ulcer, prescribed Carafate and a "brown pill". (Ansley Fierro) PFSH Past Medical History HTN Hyperlipidemia seizure disorder Past Surgical History open cholecystectomy with CBD exploration with stone extraction and T tube placement Tonsillectomy Cataract surgery Metal plate on left part of his skull (Ansley Fierro) Coded Allergies: acetaminophen (Verified Allergy, Severe, severe vomiting, 06/04/17) oxycodone (Verified Allergy, Severe, severe vomiting, 06/04/17) MRI PRECAUTION (Verified Adverse Reaction, Severe, 06/04/17) Metal in head. Social History Denies ETOH Denies smoking (Ansley Fierro) Review of Systems Gastrointestinal: COMPLAINS OF: Abdominal pain, Diarrhea, Nausea, Vomiting, Heartburn, DENIES: Black stools, Bloody stools, Constipation, Difficulty Swallowing, Odynophagia, Swelling of Abdomen, Hematemesis (Ansley Fierro) GI Exam Vitals I&O Vital Signs Date Time Temp Pulse Resp B/P (MAP) Pulse Ox O2 Delivery O2 Flow Rate FiO2 06/04/17 14:25 06/04/17 13:28 97 06/04/17 13:19 65 16 167/106 (126) 97 Room Air 06/04/17 10:58 67 17 132/69 (90) 96 Room Air 06/04/17 07:49 98.4 80 17 165/83 (110) 97 I/O 06/03/17 06/03/17 06/03/17 06/04/17 06/04/17 06/04/17 07:00 15:00 23:00 07:00 15:00 23:00 Intake Total 1000 ml 110 ml Balance 1000 ml 110 ml Intake IV Total 1000 ml 110 ml Imaging Last Impressions Abdomen/Pelvis CT 06/04/17 0756 Signed Impressions: Service Date/Time: Sunday, June 04, 2017 09:39 - CONCLUSION: Status post interval recent cholecystectomy with postsurgical changes. There is an indistinct fluid collection along the adjacent liver margin which is nonspecific. This may represent his postoperative fluid. An early abscess is felt to be less likely. Short-term CT followup is recommended in 5-7 days or as clinically indicated. Rey Hargrove MD Laboratory Test 06/04/17 08:00 White Blood Count 9.4 TH/MM3 Red Blood Count 4.29 MIL/MM3 Hemoglobin 12.9 GM/DL Hematocrit 38.2 % Mean Corpuscular Volume 89.1 FL Mean Corpuscular Hemoglobin 30.1 PG Mean Corpuscular Hemoglobin Concent 33.8 % Red Cell Distribution Width 13.1 % Platelet Count 488 TH/MM3 Mean Platelet Volume 7.1 FL Neutrophils (%) (Auto) 72.8 % Lymphocytes (%) (Auto) 12.3 % Monocytes (%) (Auto) 10.5 % Eosinophils (%) (Auto) 3.5 % Basophils (%) (Auto) 0.9 % Neutrophils # (Auto) 6.8 TH/MM3 Lymphocytes # (Auto) 1.2 TH/MM3 Monocytes # (Auto) 1.0 TH/MM3 Eosinophils # (Auto) 0.3 TH/MM3 Basophils # (Auto) 0.1 TH/MM3 CBC Comment DIFF FINAL Differential Comment Blood Urea Nitrogen 24 MG/DL Creatinine 1.04 MG/DL Random Glucose 113 MG/DL Total Protein 8.1 GM/DL Albumin 2.8 GM/DL Calcium Level 9.2 MG/DL Alkaline Phosphatase 94 U/L Aspartate Amino Transf (AST/SGOT) 26 U/L Alanine Aminotransferase (ALT/SGPT) 27 U/L Total Bilirubin 0.4 MG/DL Sodium Level 137 MEQ/L Potassium Level 4.1 MEQ/L Chloride Level 103 MEQ/L Carbon Dioxide Level 22.4 MEQ/L Anion Gap 12 MEQ/L Estimat Glomerular Filtration Rate 71 ML/MIN Lipase 538 U/L Physical Examination HEENT: Normocephalic; atraumatic CHEST: Even/unlabored CARDIAC: RRR ABDOMEN: Soft, nondistended, epigastric and RUQ abdominal TTP, bowel sounds active EXTREMITIES: No clubbing, cyanosis, or edema. SKIN: Normal; no rash; no jaundice. POULTRY OFFAL ICER: No focal deficits; alert and oriented times three. (Ansley Fierro) Assessment and Plan Plan Assessment: - Epigastric pain with nausea and emesis- began on Tuesday states worse 4-5 hours after eating. Saw his PCP this month who was concerned he may have a gastric ulcer prescribed Carafate and a "brown pill". Pt has never had EGD.Risk factors: NSAID use after recent surgery. Denies ETOH, smoking, blood thinners. H/H stable from previous admission in April, currently 12.9/38.2 - Elevated lipase- pt denies history of pancreatitis CT abdomen and pelvis W IV contrast (06/04) --> Status post interval recent cholecystectomy with postsurgical changes. There is an indistinct fluid collection along the adjacent liver margin which is nonspecific. This may represent his postoperative fluid. An early abscess is felt to be less likely. Short-term CT followup is recommended in 5-7 days or as clinically indicated. LFTs WNL: AST-26 ALT-27 T bili-0.4 Alk phos-94 Pt unable to have MRI due to metal plate in his skull - RUQ pain- S/P pen cholecystectomy with CBD exploration with stone extraction and T tube placement which has since been removed. Followed up with GS last Tuesday who states pain may persist for months Plan: GS consult pending EGD Tuesday Obtain consent NPO after MN Tuesday Hold Heparin after Tuesday night Protonix Nausea medication PRN Ibuprofen PO discontinued Further recommendations based on clinical course Pt has been seen and examined by myself and Dr. De La Cruz and this note is written on his behalf (Ansley Fierro) Physician Comments Patient seen and examined Agree with above Continue with current supportive care Monitor labs Await surgical evaluation Possible EGD on Tuesday (Pernell De La Cruz MD) Ansley Fierro Jun 04, 2017 15:50 Pernell De La Cruz MD Jun 04, 2017 22:36
--- NOTE | 2017-06-04 15:50 | RADRPT ---
EXAM DATE/TIME: 06/04/2017 14:25 [facility] COMPARISON: CHEST PA & LAT, April 28, 2017, 17:23. INDICATIONS : Short of breath. MEDICAL HISTORY : None. SURGICAL HISTORY : None. ENCOUNTER: Initial ACUITY: 1 day PAIN SCORE: 6/10 LOCATION: Bilateral chest FINDINGS: PA and lateral views of the chest demonstrate developing airspace disease posteriorly in the right lo wer lobe. Left lung is grossly clear. Heart size is normal. Osseous structures are intact. CONCLUSION: Developing airspace disease posteriorly in the right lower lobe. Raffy Brunner MD on June 04, 2017 at 15:47 Board Certified Radiologist. This report was verified electronically.
[2017-06-04 16:00] VITALS: BP 166/67; PULSE 65; RESP 16; TEMP 97.5; O2SAT 95
[2017-06-04 20:00] VITALS: BP 132/69; PULSE 73; RESP 17; TEMP 97.9; O2SAT 94
[2017-06-04] MEDS: DOCUSATE SODIUM 50 MG/SENNA 8.6 MG TAB PO SCH (21:00)
[2017-06-04] MEDS: SODIUM CHLORIDE 0.9% FLUSH 10 ML FLUSH IV FLUSH SCH (21:00)
[2017-06-05] VITALS: BP 130/64; PULSE 81; RESP 17; TEMP 97.2; O2SAT 95
[2017-06-05] MEDS: ONDANSETRON HCL 4 MG/2 ML VIAL IV PUSH PRN ×2 (03:24→09:53)
[2017-06-05] MEDS: SODIUM CHLOR 0.9% 1000 ML INJ 1,000 ML IV SCH ×3 (07:44→20:03)
[2017-06-05 08:00] VITALS: BP 152/65; PULSE 67; RESP 18; TEMP 98.7; O2SAT 94
[2017-06-05 08:24] LABS: AUTOMATED NEUTROPHIL # 4.9 TH/MM3 (1.8-7.7); BASOPHIL # 0.1 TH/MM3 (0-0.2); BASOPHIL % 0.9 % (0.0-2.0); EOSINOPHIL # 0.5 TH/MM3 (0-0.4); EOSINOPHIL % 6.9 % (0.0-4.0); HEMATOCRIT 34.7 % (39.0-51.0); HEMOGLOBIN 11.3 GM/DL (13.0-17.0); LYMPH % 15.6 % (9.0-44.0); LYMPHOCYTE # 1.2 TH/MM3 (1.0-4.8); MEAN CELL VOLUME 89.2 FL (80.0-100.0); MEAN CORPUSCULAR HEMOGLOBIN 29.1 PG (27.0-34.0); MEAN CORPUSCULAR HGB CONC 32.6 % (32.0-36.0); MEAN PLATELET VOLUME 6.9 FL (7.0-11.0); MONO % 11.3 % (0.0-8.0); MONOCYTE # 0.8 TH/MM3 (0-0.9); NEUT % 65.3 % (16.0-70.0); PLATELET COUNT 398 TH/MM3 (150-450); RED BLOOD COUNT 3.89 MIL/MM3 (4.50-5.90); RED CELL DISTRIBUTION WIDTH 13.2 % (11.6-17.2); WHITE BLOOD COUNT 7.5 TH/MM3 (4.0-11.0)
[2017-06-05 08:57] LABS: ALBUMIN 2.3 GM/DL (3.4-5.0); ALKALINE PHOSPHATASE 77 U/L (45-117); ALT (GPT) 19 U/L (12-78); AST (GOT) 10 U/L (15-37); BICARBONATE 24.4 MEQ/L (21.0-32.0); BLOOD UREA NITROGEN 16 MG/DL (7-18); CALCIUM 8.2 MG/DL (8.5-10.1); CHLORIDE 107 MEQ/L (98-107); CREATININE 0.84 MG/DL (0.60-1.30); GLOMERULAR FILTRATION RATE 91 ML/MIN (>89); GLUCOSE,RANDOM 103 MG/DL (74-106); SODIUM (NA) 139 MEQ/L (136-145); TOTAL BILIRUBIN ADULT 0.3 MG/DL (0.2-1.0); TOTAL PROTEIN 6.8 GM/DL (6.4-8.2)
[2017-06-05] MEDS: LISINOPRIL 20 MG TAB PO SCH (09:00)
[2017-06-05] MEDS: PRAVASTATIN SOD 20 MG TAB PO SCH (09:00)
[2017-06-05] MEDS: SODIUM CHLORIDE 0.9% FLUSH 10 ML FLUSH IV FLUSH SCH ×2 (09:00→20:02)
[2017-06-05] MEDS ORDERED: BISACODYL 10 MG SUPP RECTAL ONE (09:00)
[2017-06-05] MEDS: DOCUSATE SODIUM 50 MG/SENNA 8.6 MG TAB PO SCH ×2 (09:00→20:03)
[2017-06-05] MEDS: PANTOPRAZOLE SOD 40 MG DELAYED RELEASE TAB PO SCH (09:00)
[2017-06-05] MEDS: PHENYTOIN SODIUM 100 MG CAP PO SCH ×3 (09:00→17:17)
[2017-06-05] MEDS: POLYETHYLENE GLYCOL 17 GM PKG PO SCH (09:00)
[2017-06-05 10:03] VITALS: O2SAT 94
[2017-06-05 12:00] VITALS: BP 137/63; PULSE 72; RESP 18; TEMP 98.2; O2SAT 93
--- NOTE | 2017-06-05 12:24 | HHI.FPPN ---
Subjective Remarks Patient was seen and evaluated this morning. He continues to experience RUQ pain. He reports epigastric pain and nausea following dinner last night and breakfast this morning. He denies vomiting. He reports one watery bowel movement on and one watery bowel movement overnight from Tuesday to Tuesday. He has not had a bowel movement since admission. He denies chest pain and shortness of breath. He denies fever and chills. All questions were answered. (Nikole Urbina MD R1) Objective Vitals Vital Signs Date Time Temp Pulse Resp B/P (MAP) Pulse Ox O2 Delivery O2 Flow Rate FiO2 06/05/17 10:03 94 21 06/05/17 08:00 98.7 67 18 152/65 (94) 94 06/05/17 04:37 21 06/05/17 00:00 97.2 81 17 130/64 (86) 95 06/04/17 20:00 97.9 73 17 132/69 (90) 94 06/04/17 16:00 97.5 65 16 166/67 (100) 95 06/04/17 14:25 06/04/17 13:28 97 06/04/17 13:19 65 16 167/106 (126) 97 Room Air I/O 06/04/17 06/04/17 06/04/17 06/05/17 06/05/17 06/05/17 07:00 15:00 23:00 07:00 15:00 23:00 Intake Total 1000 ml 1510 ml 240 ml 75 ml Output Total 550 ml 600 ml Balance 1000 ml 960 ml -360 ml 75 ml Intake Oral 240 ml IV Total 1000 ml 1510 ml 75 ml Output Urine Total 550 ml 600 ml # Voids 2 (Nikole Urbina MD R1) Result Diagram: 06/05/17 0804 06/05/17 0804 Imaging Last 72 hours Impressions Chest X-Ray 06/04/17 1332 Signed Impressions: Service Date/Time: Sunday, June 04, 2017 14:25 - CONCLUSION: Developing airspace disease posteriorly in the right lower lobe. Raffy Brunner MD Abdomen/Pelvis CT 06/04/17 4956 Signed Impressions: Service Date/Time: Sunday, June 04, 2017 09:39 - CONCLUSION: Status post interval recent cholecystectomy with postsurgical changes. There is an indistinct fluid collection along the adjacent liver margin which is nonspecific. This may represent his postoperative fluid. An early abscess is felt to be less likely. Short-term CT followup is recommended in 5-7 days or as clinically indicated. Rey Hargrove MD Objective Remarks GENERAL: This is a well-nourished, well-developed patient, in some distress, clutching his RUQ periodically. SKIN: Warm and dry. S-shaped scar over RUQ, approximately 11cm in length; scar well-healed without evidence of infection. Small pointed bump adjacent to distal end of scar. Drainage sites x2 over RUQ appear well-healed. Tissue underlying scars feels firms. HEAD: Atraumatic. Normocephalic. EYES: Pupils equal round. Extraocular motions intact. No scleral icterus. No injection or drainage. ENT: Nose without bleeding, purulent drainage or septal hematoma. Airway patent. NECK: Supple, nontender, no meningeal signs. CARDIOVASCULAR: Regular rate and rhythm without murmurs, gallops, or rubs. RESPIRATORY: Clear to auscultation anteriorly. Breath sounds equal bilaterally. No wheezes, rales, or rhonchi. GASTROINTESTINAL: No bowel sounds appreciated. Abdomen soft, nondistended. Tenderness upon palpation of RUQ. No hepato-splenomegaly, or palpable masses. No guarding. RECTUM: No stool appreciated in vault. Hemoccult negative. MUSCULOSKELETAL: Extremities without clubbing, cyanosis, or edema. No joint tenderness, effusion, or edema noted. No calf tenderness. NEUROLOGICAL: Awake and alert. Cranial nerves II through XII intact. Motor and sensory grossly within normal limits. Normal speech. Procedures EGD scheduled for 06/06. Medications and IVs Current Medications Medications (Trade) Dose Ordered Sig/Bret Route Start Time Stop Time Status Last Admin (Dilantin) 100 mg TID PO 06/04/17 13:00 06/05/17 09:00 (Pravachol) 20 mg DAILY PO 06/04/17 14:00 06/05/17 09:00 (Prinivil) 40 mg DAILY PO 06/04/17 14:00 06/05/17 09:00 Sodium Chloride 1,000 ml @ 170 mls/hr Q5H53M IV 06/04/17 13:32 06/05/17 09:19 (NS Flush) 2 ml UNSCH PRN IV FLUSH 06/04/17 13:45 (NS Flush) 2 ml BID IV FLUSH 06/04/17 21:00 (Morphine Inj) 2 mg Q3H PRN IV PUSH 06/04/17 13:45 (Narcan Inj) 0.4 mg UNSCH PRN IV PUSH 06/04/17 13:45 (Imelda-Colace) 1 tab BID PO 06/04/17 21:00 (Milk Of Magnesia Liq) 30 ml Q12H PRN PO 06/04/17 13:45 (Senokot) 17.2 mg Q12H PRN PO 06/04/17 13:45 (Lactulose Liq) 30 ml DAILY PRN PO 06/04/17 13:45 (Zofran Inj) 4 mg Q6H PRN IV PUSH 06/04/17 13:45 06/05/17 09:53 (Protonix) 40 mg DAILY PO 06/04/17 13:45 06/05/17 09:00 (Morphine Inj) 1 mg Q3H PRN IV PUSH 06/04/17 17:30 (Miralax) 17 gm DAILY PO 06/05/17 09:00 (Nikole Urbina MD R1) Urinary Catheter: No (Nikole Urbina MD R1) Vascular Central Line Catheter: No (Nikole Urbina MD R1) A/P Assessment and Plan Patient is a 67 year old male who presents to the ED for evaluation of right upper quadrant pain, nausea and vomiting. Admitted for observation. GI consulted ; plan for EGD on Tuesday. Discharge Planning Pending clinical improvement. (Nikole Urbina MD R1) Attending Attestation Pt. seen, examined and discussed with Drs. Jolley and Carlitos. He is unable to eat without nausea. Frequent belching, no flatus per rectum. Right flank discomfort persists and per patient is severe, especially with movement, separate from epigastric discomfort and nausea after eating. Open cholecystectomy with T-tube 3 weeks ago for cholecystitis and cholelithiasis, SUSAN drain has subsequently been removed. Exam shows no bowel sounds, tender right mil abdomen to palpation, Carnett's reveals tenderness of right flank area with head flexed, thus pain more likely to be abdominal wall vs intraabdominal. Rectal exam shows almost no stool in vault, no palpable mass, hemoccult negative (performed by Dr. Urbina). Will give trial of NG to decompress stomach. Keep low threshold for asking surgery to reevaluate. (Lenka De La Rosa MD) Problem List: (1) Abdominal pain ICD Codes: R10.9 - Unspecified abdominal pain Status: Acute Plan: Patient with RUQ pain and epigastric pain as well as nausea and vomiting after meals. Pain worsening since Tuesday (06/01). Patient has been avoiding food in fear of nausea and vomiting. NG tube placed for decompression on 06/05. Labs 06/04: WBC 9.4. Lipase 538. Labs 06/05: WBC 7.4. Lipase 219. CT 06/04: Status post interval recent cholecystectomy with postsurgical changes. There is an indistinct fluid collection along the adjacent liver margin which is nonspecific. This may represent his postoperative fluid. An early abscess is felt to be less likely. Short-term CT followup is recommended in 5-7 days or as clinically indicated. The stomach, small bowel, and colon demonstrate no acute abnormality. There is no free intraperitoneal air or fluid. GI consulted; recommendations: * EGD Tuesday, consent obtained. * NPO after MN Tuesday. * Protonix. * Nausea medication PRN. * Ibuprofen PO discontinued. Medications: * Protonix 40mg PO daily. * Zofran 4mg q6hr IV PRN nausea and vomiting. * Morphine for pain control. Patient allergic to acetaminophen and oxycodone but tolerates morphine. Ibuprofen and Toradol contraindicated in active gastric ulcer disease. May consider change in pain management following EGD on Tuesday. (2) Nausea & vomiting ICD Codes: R11.2 - Nausea with vomiting, unspecified Status: Acute Plan: * See Plan for Abdominal pain. (3) Seizure Status: Chronic Plan: Patient with remote history of seizure. * Continue home meds. (4) HTN (hypertension) ICD Codes: I10 - Essential (primary) hypertension Status: Chronic Plan: Patient with history of hypertension. * Continue home meds. (5) Dyslipidemia ICD Codes: E78.5 - Dyslipidemia Status: Chronic Plan: Patient with history of hyperlipidemia. * Continue home meds. (6) Fluid, Electrolyte, Nutrition and Prophylaxis Status: Acute Plan: Fluid: * NS at 170ml/hr. Electrolyte: * Monitor and replete as necessary. Nutrition: * NPO. Prophylaxis: * SCDs. * May consider chemical prophylaxis after EGD on Tuesday. (Nikole Urbina MD R1) Nikole Urbina MD R1 Jun 05, 2017 12:24 Lenka De La Rosa MD Jun 05, 2017 14:08
--- NOTE | 2017-06-05 14:04 | HHI.GIFU ---
Subjective Remarks Pt resting in bed States was having bad abdominal pain, now better after Morphine Some nausea, currently controlled (Ansley Fierro) Objective Vitals I&O Vital Signs Date Time Temp Pulse Resp B/P (MAP) Pulse Ox O2 Delivery O2 Flow Rate FiO2 06/05/17 10:03 94 21 06/05/17 08:00 98.7 67 18 152/65 (94) 94 06/05/17 04:37 21 06/05/17 00:00 97.2 81 17 130/64 (86) 95 06/04/17 20:00 97.9 73 17 132/69 (90) 94 06/04/17 16:00 97.5 65 16 166/67 (100) 95 06/04/17 14:25 I/O 06/04/17 06/04/17 06/04/17 06/05/17 06/05/17 06/05/17 07:00 15:00 23:00 07:00 15:00 23:00 Intake Total 1000 ml 1510 ml 240 ml 75 ml Output Total 550 ml 600 ml Balance 1000 ml 960 ml -360 ml 75 ml Intake Oral 240 ml IV Total 1000 ml 1510 ml 75 ml Output Urine Total 550 ml 600 ml # Voids 2 Laboratory Laboratory Tests Test 06/05/17 08:04 White Blood Count 7.5 Red Blood Count 3.89 Hemoglobin 11.3 Hematocrit 34.7 Mean Corpuscular Volume 89.2 Mean Corpuscular Hemoglobin 29.1 Mean Corpuscular Hemoglobin Concent 32.6 Red Cell Distribution Width 13.2 Platelet Count 398 Mean Platelet Volume 6.9 Neutrophils (%) (Auto) 65.3 Lymphocytes (%) (Auto) 15.6 Monocytes (%) (Auto) 11.3 Eosinophils (%) (Auto) 6.9 Basophils (%) (Auto) 0.9 Neutrophils # (Auto) 4.9 Lymphocytes # (Auto) 1.2 Monocytes # (Auto) 0.8 Eosinophils # (Auto) 0.5 Basophils # (Auto) 0.1 CBC Comment DIFF FINAL Differential Comment Hematology Comments Blood Urea Nitrogen 16 Creatinine 0.84 Random Glucose 103 Total Protein 6.8 Albumin 2.3 Calcium Level 8.2 Alkaline Phosphatase 77 Aspartate Amino Transf (AST/SGOT) 10 Alanine Aminotransferase (ALT/SGPT) 19 Total Bilirubin 0.3 Sodium Level 139 Potassium Level 4.2 Chloride Level 107 Carbon Dioxide Level 24.4 Anion Gap 8 Estimat Glomerular Filtration Rate 91 Lipase 219 Imaging Last Impressions Chest X-Ray 06/04/17 1332 Signed Impressions: Service Date/Time: Sunday, June 04, 2017 14:25 - CONCLUSION: Developing airspace disease posteriorly in the right lower lobe. Raffy Brunner MD Abdomen/Pelvis CT 06/04/17 0756 Signed Impressions: Service Date/Time: Sunday, June 04, 2017 09:39 - CONCLUSION: Status post interval recent cholecystectomy with postsurgical changes. There is an indistinct fluid collection along the adjacent liver margin which is nonspecific. This may represent his postoperative fluid. An early abscess is felt to be less likely. Short-term CT followup is recommended in 5-7 days or as clinically indicated. Rey Hargrove MD Physical Exam HEENT: Normocephalic; atraumatic CHEST: Even/unlabored CARDIAC: RRR ABDOMEN: Soft, nondistended, epigastric TTP; bowel sounds active SKIN: Normal; no rash; no jaundice. GLOST KILN OPERATOR: No focal deficits; alert and oriented times three. (Ansley Fierro) Assessment and Plan Plan Assessment: - Epigastric pain with nausea and emesis- began on Tuesday states worse 4-5 hours after eating. Saw his PCP this month who was concerned he may have a gastric ulcer prescribed Carafate and a "brown pill". Pt has never had EGD.Risk factors: NSAID use after recent surgery. Denies ETOH, smoking, blood thinners. H/H stable from previous admission in April, currently 12.9/38.2 - Elevated lipase- pt denies history of pancreatitis CT abdomen and pelvis W IV contrast (06/04) --> Status post interval recent cholecystectomy with postsurgical changes. There is an indistinct fluid collection along the adjacent liver margin which is nonspecific. This may represent his postoperative fluid. An early abscess is felt to be less likely. Short-term CT followup is recommended in 5-7 days or as clinically indicated. LFTs WNL: AST-26 ALT-27 T bili-0.4 Alk phos-94 Pt unable to have MRI due to metal plate in his skull - RUQ pain- S/P pen cholecystectomy with CBD exploration with stone extraction and T tube placement which has since been removed. Followed up with GS last Tuesday who states pain may persist for months (06/05) --> Pt with continued abdominal pain, better after Morphine. Some nausea , currently controlled. GS consult pending. Will await there recommendations before possibly proceeding with EGD. Plan: GS consult pending Possible EGD pending GS recommendations NPO after MN in case of procedure Hold Heparin after Tuesday night Protonix Nausea medication PRN Ibuprofen PO discontinued Further recommendations based on clinical course Pt has been seen and examined by myself and Dr. De La Cruz and this note is written on his behalf (Ansley Fierro) Physician Comments Patient seen and examined Agree with above Continue with current supportive care Monitor labs Await surgical evaluation (Pernell De La Cruz MD) Ansley Fierro Jun 05, 2017 14:04 Pernell De La Cruz MD Jun 05, 2017 23:32
[2017-06-05 16:00] VITALS: BP 168/67; PULSE 71; RESP 18; TEMP 98.7; O2SAT 94
[2017-06-05 20:00] VITALS: BP 153/68; PULSE 62; RESP 17; TEMP 98.9; O2SAT 95
[2017-06-06] VITALS (7 sets, daily range): BP systolic 142–182; BP diastolic 64–81; PULSE 70–90; RESP 17–24; TEMP 97.8–98.4; O2SAT 95–97
--- NOTE | 2017-06-06 00:43 | EKG ---
Date Performed: 06/04/2017 Time Performed: 13:55:39 PTAGE: 67 years EKG: Sinus rhythm WITH FIRST DEGREE AV BLOCK ABNORMAL ECG PREVIOUS TRACING : 04/28/2017 21.59 Since the previous tracing, no significant change noted DOCTOR: Melvin Mahmood Interpretating Date/Time 06/06/2017 00:41:38
[2017-06-06] MEDS: SODIUM CHLOR 0.9% 1000 ML INJ 1,000 ML IV SCH ×3 (04:03→20:04)
[2017-06-06 06:09] LABS: AUTOMATED NEUTROPHIL # 5.4 TH/MM3 (1.8-7.7); BASOPHIL % 0.6 % (0.0-2.0); EOSINOPHIL # 0.6 TH/MM3 (0-0.4); EOSINOPHIL % 7.3 % (0.0-4.0); HEMATOCRIT 34.8 % (39.0-51.0); HEMOGLOBIN 11.6 GM/DL (13.0-17.0); LYMPH % 12.2 % (9.0-44.0); LYMPHOCYTE # 0.9 TH/MM3 (1.0-4.8); MEAN CELL VOLUME 88.6 FL (80.0-100.0); MEAN CORPUSCULAR HEMOGLOBIN 29.6 PG (27.0-34.0); MEAN CORPUSCULAR HGB CONC 33.4 % (32.0-36.0); MEAN PLATELET VOLUME 6.7 FL (7.0-11.0); MONO % 8.8 % (0.0-8.0); MONOCYTE # 0.7 TH/MM3 (0-0.9); NEUT % 71.1 % (16.0-70.0); PLATELET COUNT 415 TH/MM3 (150-450); RED BLOOD COUNT 3.93 MIL/MM3 (4.50-5.90); RED CELL DISTRIBUTION WIDTH 12.9 % (11.6-17.2); WHITE BLOOD COUNT 7.6 TH/MM3 (4.0-11.0)
[2017-06-06 06:34] LABS: ALBUMIN 2.3 GM/DL (3.4-5.0); ALT (GPT) 15 U/L (12-78); AST (GOT) 10 U/L (15-37); BICARBONATE 22.2 MEQ/L (21.0-32.0); BLOOD UREA NITROGEN 11 MG/DL (7-18); CALCIUM 8.3 MG/DL (8.5-10.1); CHLORIDE 108 MEQ/L (98-107); CREATININE 0.67 MG/DL (0.60-1.30); GLOMERULAR FILTRATION RATE 118 ML/MIN (>89); GLUCOSE,RANDOM 88 MG/DL (74-106); SODIUM (NA) 141 MEQ/L (136-145)
[2017-06-06 06:37] LABS: ALKALINE PHOSPHATASE 72 U/L (45-117); TOTAL BILIRUBIN ADULT 0.2 MG/DL (0.2-1.0); TOTAL PROTEIN 6.7 GM/DL (6.4-8.2)
[2017-06-06] MEDS: SODIUM CHLORIDE 0.9% FLUSH 10 ML FLUSH IV FLUSH SCH ×2 (09:00→20:03)
[2017-06-06] MEDS: POLYETHYLENE GLYCOL 17 GM PKG PO SCH (09:00)
[2017-06-06] MEDS: DOCUSATE SODIUM 50 MG/SENNA 8.6 MG TAB PO SCH ×2 (09:00→20:04)
--- NOTE | 2017-06-06 09:12 | HHI.FPPN ---
Subjective Remarks Vitals were stable overnight. Patient states he is not in any significant pain. Last dose of morphine was around noon yesterday. No pain medications since then. Patient states that he has no pain while laying still and flat. Starts to have abdominal pain when he exerts himself. Has not eaten since yesterday but feels like he could try liquid diet - last meal was solid and associated w/ vomiting hours later. Last worked w/PT yesterday and had significant pain and guarding during session - advised to have home health if this continues. Patient states he has not been out of bed since then and has been using bedside urinals. No chest pain, SOB, or cough. (Dunia Mejía MD R1) Objective Vitals Vital Signs Date Time Temp Pulse Resp B/P (MAP) Pulse Ox O2 Delivery O2 Flow Rate FiO2 06/06/17 08:00 97.9 70 23 167/72 (103) 97 06/06/17 00:00 98.4 70 17 142/64 (90) 96 06/05/17 20:00 98.9 62 17 153/68 (96) 95 06/05/17 16:00 98.7 71 18 168/67 (100) 94 06/05/17 12:00 98.2 72 18 137/63 (87) 93 06/05/17 10:03 94 21 I/O 06/05/17 06/05/17 06/05/17 06/06/17 06/06/17 06/06/17 07:00 15:00 23:00 07:00 15:00 23:00 Intake Total 240 ml 75 ml 1460 ml Output Total 600 ml 800 ml 600 ml Balance -360 ml 75 ml 660 ml -600 ml Intake Oral 240 ml 460 ml IV Total 75 ml 1000 ml Output Urine Total 600 ml 800 ml 600 ml # Voids 2 (Dunia Mejía MD R1) Result Diagram: 06/06/17 0533 06/06/17 0533 Objective Remarks GENERAL: This is a well-nourished, well-developed patient laying comfortably in bed. SKIN: Warm and dry. S-shaped scar over RUQ, approximately 11cm in length; scar well-healed without evidence of infection. Small pointed bump adjacent to distal end of scar. Drainage sites x2 over RUQ appear well-healed. Tissue underlying scars feels firms. HEAD: Atraumatic. Normocephalic. EYES: Pupils equal round. Extraocular motions intact. No scleral icterus. ENT: Airway patent. CARDIOVASCULAR: Regular rate and rhythm without murmurs, gallops, or rubs. RESPIRATORY: Clear to auscultation anteriorly. GASTROINTESTINAL: Positive bowel sounds appreciated in all quadrants. Abdomen soft, nondistended. Tenderness upon palpation of RUQ. No hepato-splenomegaly, or palpable masses. MUSCULOSKELETAL: Extremities without clubbing, cyanosis, or edema. N NEUROLOGICAL: Awake and alert. No focal deficits. Normal speech. Procedures EGD possible today (Dunia Mejía MD R1) A/P Assessment and Plan Patient is a 67 year old male who presents to the ED for evaluation of right upper quadrant pain, nausea and vomiting. Admitted for observation. Discharge Planning Pending improved PO intake and ambulation w/minimal pain. (Dunia Mejía MD R1) Attending Attestation Patient seen and examined. Discussed with Dr. Mejía. Agree with physical findings , assessment and plan as documented. (Prevatte,Marc Meade Jr., MD) Problem List: (1) Abdominal pain ICD Codes: R10.9 - Unspecified abdominal pain Status: Acute Plan: Patient with worsening RUQ pain and epigastric pain as well as nausea and vomiting after meals. Patient has been avoiding food in fear of nausea and vomiting. NG tube placed for decompression on 06/05. Labs 06/04-: WBC within normal limits CT 06/04: Status post interval recent cholecystectomy with postsurgical changes. There is an indistinct fluid collection along the adjacent liver margin which is nonspecific. This may represent his postoperative fluid. An early abscess is felt to be less likely. Short-term CT followup is recommended in 5-7 days or as clinically indicated. The stomach, small bowel, and colon demonstrate no acute abnormality. There is no free intraperitoneal air or fluid. GI consulted; recommendations: * EGD pending recommendations, hopefully today * Currently NPO * Protonix 40 mg daily * Zofran PRN Medications: * Protonix 40mg PO daily. * Zofran 4mg q6hr IV PRN nausea and vomiting. * Morphine for pain control. Patient allergic to acetaminophen and oxycodone but tolerates morphine. Ibuprofen and Toradol contraindicated in active gastric ulcer disease. May consider change in pain management following EGD on Tuesday. * NS 170 mls/hr Plan: Improvement in pain since admission. No further episodes of vomiting or pain since 06/05 Plan to continue above medications. After procedure, plan to reduce IVF to maintenance, start clear liquid diet, and encourage out of bed ambulation. Spoke w/GS today, state patient is clear from their view, recommend GI proceed w / EGD for upper GI abnormalities. (2) Nausea & vomiting ICD Codes: R11.2 - Nausea with vomiting, unspecified Status: Acute Plan: * See Plan for Abdominal pain. (3) Seizure Status: Chronic Plan: Patient with remote history of seizure. * Continue phenytoin daily (4) HTN (hypertension) ICD Codes: I10 - Essential (primary) hypertension Status: Chronic Plan: Patient with history of hypertension. * Continue lisinopril (5) Dyslipidemia ICD Codes: E78.5 - Dyslipidemia Status: Chronic Plan: Patient with history of hyperlipidemia. * Continue pravastatin daily (6) Fluid, Electrolyte, Nutrition and Prophylaxis Status: Acute Plan: Fluid: * NS at 170ml/hr. Reduce to maintenance after procedure. Electrolyte: * Monitor and replete as necessary. Nutrition: * NPO. CLD after procedure. Prophylaxis: * SCDs. * Heparin chemical prophylaxis after procedure. (Dunia Mejía MD R1) Dunia Mejía MD R1 Jun 06, 2017 09:12 Marc Vogel Jr., MD Jun 06, 2017 14:03
[2017-06-06] MEDS: PANTOPRAZOLE SOD 40 MG DELAYED RELEASE TAB PO SCH (09:13)
[2017-06-06] MEDS: PRAVASTATIN SOD 20 MG TAB PO SCH (09:13)
[2017-06-06] MEDS: LISINOPRIL 20 MG TAB PO SCH (09:13)
[2017-06-06] MEDS: PHENYTOIN SODIUM 100 MG CAP PO SCH ×3 (09:13→18:24)
--- NOTE | 2017-06-06 13:14 | HHI.GIFU ---
Subjective Remarks Patient for HIDA scan today No evidence of biliary obstruction afebrile EGD am. (Lenka Smith) Objective Vitals I&O Vital Signs Date Time Temp Pulse Resp B/P (MAP) Pulse Ox O2 Delivery O2 Flow Rate FiO2 06/06/17 09:25 97 06/06/17 08:00 97.9 70 23 167/72 (103) 97 06/06/17 00:00 98.4 70 17 142/64 (90) 96 06/05/17 20:00 98.9 62 17 153/68 (96) 95 06/05/17 16:00 98.7 71 18 168/67 (100) 94 I/O 06/05/17 06/05/17 06/05/17 06/06/17 06/06/17 06/06/17 07:00 15:00 23:00 07:00 15:00 23:00 Intake Total 240 ml 75 ml 1460 ml Output Total 600 ml 800 ml 600 ml Balance -360 ml 75 ml 660 ml -600 ml Intake Oral 240 ml 460 ml IV Total 75 ml 1000 ml Output Urine Total 600 ml 800 ml 600 ml # Voids 2 Laboratory Laboratory Tests Test 06/06/17 05:33 White Blood Count 7.6 Red Blood Count 3.93 Hemoglobin 11.6 Hematocrit 34.8 Mean Corpuscular Volume 88.6 Mean Corpuscular Hemoglobin 29.6 Mean Corpuscular Hemoglobin Concent 33.4 Red Cell Distribution Width 12.9 Platelet Count 415 Mean Platelet Volume 6.7 Neutrophils (%) (Auto) 71.1 Lymphocytes (%) (Auto) 12.2 Monocytes (%) (Auto) 8.8 Eosinophils (%) (Auto) 7.3 Basophils (%) (Auto) 0.6 Neutrophils # (Auto) 5.4 Lymphocytes # (Auto) 0.9 Monocytes # (Auto) 0.7 Eosinophils # (Auto) 0.6 Basophils # (Auto) 0.0 CBC Comment DIFF FINAL Differential Comment Blood Urea Nitrogen 11 Creatinine 0.67 Random Glucose 88 Total Protein 6.7 Albumin 2.3 Calcium Level 8.3 Alkaline Phosphatase 72 Aspartate Amino Transf (AST/SGOT) 10 Alanine Aminotransferase (ALT/SGPT) 15 Total Bilirubin 0.2 Sodium Level 141 Potassium Level 3.6 Chloride Level 108 Carbon Dioxide Level 22.2 Anion Gap 11 Estimat Glomerular Filtration Rate 118 Imaging Last Impressions Chest X-Ray 06/04/17 1332 Signed Impressions: Service Date/Time: Sunday, June 04, 2017 14:25 - CONCLUSION: Developing airspace disease posteriorly in the right lower lobe. Raffy Brunner MD Abdomen/Pelvis CT 06/04/17 0756 Signed Impressions: Service Date/Time: Sunday, June 04, 2017 09:39 - CONCLUSION: Status post interval recent cholecystectomy with postsurgical changes. There is an indistinct fluid collection along the adjacent liver margin which is nonspecific. This may represent his postoperative fluid. An early abscess is felt to be less likely. Short-term CT followup is recommended in 5-7 days or as clinically indicated. Rey Hargrove MD Physical Exam HEENT: Normocephalic; atraumatic CHEST: Even/unlabored CARDIAC: RRR ABDOMEN: Soft, nondistended, epigastric TTP; bowel sounds active SKIN: Normal; no rash; no jaundice. CLERICAL AND ADMINISTRATIVE WORKERS: No focal deficits; alert and oriented times three. (Lenka Smith) Assessment and Plan Plan Assessment: History - Epigastric pain with nausea and emesis- began on Tuesday states worse 4-5 hours after eating. Saw his PCP this month who was concerned he may have a gastric ulcer prescribed Carafate and a "brown pill". Pt has never had EGD.Risk factors: NSAID use after recent surgery. Denies ETOH, smoking, blood thinners. H/H stable from previous admission in April, currently 12.9/38.2 - Elevated lipase- pt denies history of pancreatitis CT abdomen and pelvis W IV contrast (06/04) --> Status post interval recent cholecystectomy with postsurgical changes. There is an indistinct fluid collection along the adjacent liver margin which is nonspecific. This may represent his postoperative fluid. An early abscess is felt to be less likely. Short-term CT followup is recommended in 5-7 days or as clinically indicated. LFTs WNL: AST-26 ALT-27 T bili-0.4 Alk phos-94 Pt unable to have MRI due to metal plate in his skull - RUQ pain- S/P pen cholecystectomy with CBD exploration with stone extraction and T tube placement which has since been removed. Followed up with GS last Tuesday who states pain may persist for months (06/05) --> Pt with continued abdominal pain, better after Morphine. Some nausea , currently controlled. GS consult pending. Will await there recommendations before possibly proceeding with EGD. 06/06/2017, possible biliary obstruction to be ruled out Plan: HIDA scan today Consent for EGD in a.m. NPO after MN Hold Heparin in the a.m. Protonix Nausea medication PRN Monitor labs and meds Further recommendations based on clinical course Pt has been seen and examined by myself and Dr. De La Cruz and this note is written on his behalf Note: Misc: 06/07/17, Prep ordered for SB follow through /Upper GI series to be done in am, 06/08/17. Mag. Citrate X 2 and Dulcolax. timed as requested per Radiology. (Lenka Smith) Physician Comments Patient seen and examined Agree with above Continue with current supportive care Monitor lab HIDA scan negative for bile leak We will pursue EGD for tomorrow Patient seen 06/06/17 (Pernell De La Cruz MD) Lenka Smith Jun 06, 2017 13:14 Pernell De La Cruz MD Jun 07, 2017 00:54
[2017-06-06] MEDS ORDERED: SINCALIDE 5 MCG/5 ML VIAL IV ONE (14:47)
[2017-06-06] MEDS: ONDANSETRON HCL 4 MG/2 ML VIAL IV PUSH PRN (15:56)
--- NOTE | 2017-06-06 16:00 | RADRPT ---
EXAM DATE/TIME: 06/06/2017 13:59 [facility] COMPARISON: CT ABDOMEN & PELVIS W CONTRAST, June 04, 2017, 9:39. INDICATIONS : Abdominal pain, nausea and vomiting for one day. Two weeks status post cholecystectomy. Abnormal abdo men CT with small fluid collection. Patient being evaluated for possible biloma. DOSE: 4.0 mCi Tc99m Mebrofenin IV MEDICATION: 1.36 mcg Cholecystokinin IV; No symptomatic response. Cholecystokinin was administered by slow infusion over 8 minutes beginning at 35 minutes. MEDICAL HISTORY : Hypertension. SURGICAL HISTORY : Cholecystectomy. ENCOUNTER: Initial ACUITY: 2 weeks PAIN SCALE: 5/10 LOCATION: Right upper quadrant TECHNIQUE: Following the intravenous administration of radiotracer, dynamic sequential image were performed with continuous acquisition. Time-activity curves were generated. FINDINGS: HEPATIC KINETICS: There is prompt uptake of radiotracer in the liver. No focal defects are seen. There is normal rate of washout from the hepatic parenchyma. BILIARY CLEARANCE: Activity is first seen in the extrahepatic biliary system at 10 minutes. There is normal excretion i nto the small bowel. No abnormal collections are noted. GALLBLADDER: Status post cholecystectomy. POST CHOLECYSTOKININ: No cholecystokinin was given. BILIARY ENTERIC REFLUX: None observed. CONCLUSION: 1. Status post cholecystectomy. 2. No evidence of biliary obstruction or biloma. Rey Hargrove MD on June 06, 2017 at 15:55 Board Certified Radiologist. This report was verified electronically.
--- NOTE | 2017-06-06 17:59 | PD.CONS ---
cc: Rey Edmondson MD [facility] Service General Surgery Consult Requested By Ansley CASTRO Reason for Consult Recent cholecystectomy with CT findings of a possible fluid collection Primary Care Physician Rey Dang MD History of Present Illness This is a 67 year old male with a past medical history of hypertension, dyslipidemia, traumatic brain injury with associated seizure disorder and a recent open cholecystectomy; CBD exploration; stone extraction; T tube placement on April 30, [address] Edmondson. The patient was discharged home and has followed up with Dr. Edmondson for SUSAN drain removal. The patient was doing well until he came to the ED with complains of nausea. A CT abdomen/ pelvis was obtained which showed an indistinct fluid collection along the adjacent liver margin which is nonspecific and not likely to represent an abscess formation. His WBC has remained stable. His liver enzymes are normal. His lipase was increased on admission to 538 but currently it is 219. A General Surgery consultation has been requested. Review of Systems Constitutional: COMPLAINS OF: Fatigue, Change in appetite, DENIES: Chills Endocrine: DENIES: Polydipsia, Polyuria, Polyphagia Eyes: DENIES: Diplopia, Eye inflammation Ears, nose, mouth, throat: DENIES: Tinnitus Respiratory: DENIES: Apneas Cardiovascular: DENIES: Chest pain Gastrointestinal: COMPLAINS OF: Abdominal pain, Nausea, Vomiting Genitourinary: DENIES: Urgency Musculoskeletal: DENIES: Joint pain Integumentary: DENIES: Abnormal pigmentation Hematologic/lymphatic: DENIES: Bruising Immunologic/allergic: DENIES: Eczema Neurologic: DENIES: Abnormal gait, Headache Psychiatric: DENIES: Mood changes, Depression, Hallucinations Past Family Social History Past Medical History Hypertension Dyslipidemia Trauma Brain Injury Past Surgical History Open cholecystectomy; CBD exploration; stone extraction; T tube placement on April [address] Edmondson Metal plate in head Cataract surgery Reported Medications Pravastatin Lisinopril Nitro Phenytoin extended Aspirin Allergies: Coded Allergies: acetaminophen (Verified Allergy, Severe, severe vomiting, 06/04/17) oxycodone (Verified Allergy, Severe, severe vomiting, 06/04/17) MRI PRECAUTION (Verified Adverse Reaction, Severe, 06/04/17) Metal in head. Active Ordered Medications Current Medications Medications (Trade) Dose Ordered Sig/Bret Route Start Time Stop Time Status Last Admin (Dilantin) 100 mg TID PO 06/04/17 13:00 06/06/17 15:56 (Pravachol) 20 mg DAILY PO 06/04/17 14:00 06/06/17 09:13 (Prinivil) 40 mg DAILY PO 06/04/17 14:00 06/06/17 09:13 Sodium Chloride 1,000 ml @ 170 mls/hr Q5H53M IV 06/04/17 13:32 06/06/17 04:03 (NS Flush) 2 ml UNSCH PRN IV FLUSH 06/04/17 13:45 (NS Flush) 2 ml BID IV FLUSH 06/04/17 21:00 06/05/17 20:02 (Morphine Inj) 2 mg Q3H PRN IV PUSH 06/04/17 13:45 06/05/17 12:47 (Narcan Inj) 0.4 mg UNSCH PRN IV PUSH 06/04/17 13:45 (Imelda-Colace) 1 tab BID PO 06/04/17 21:00 (Milk Of Magnesia Liq) 30 ml Q12H PRN PO 06/04/17 13:45 (Senokot) 17.2 mg Q12H PRN PO 06/04/17 13:45 (Lactulose Liq) 30 ml DAILY PRN PO 06/04/17 13:45 (Zofran Inj) 4 mg Q6H PRN IV PUSH 06/04/17 13:45 06/06/17 15:56 (Protonix) 40 mg DAILY PO 06/04/17 13:45 06/06/17 09:13 (Morphine Inj) 1 mg Q3H PRN IV PUSH 06/04/17 17:30 06/06/17 15:56 (Miralax) 17 gm DAILY PO 06/05/17 09:00 Family History Non contributory Social History Denies tobacco use Denies ETOH use Denies illicit drug use Physical Exam Vital Signs Vital Signs Date Time Temp Pulse Resp B/P (MAP) Pulse Ox O2 Delivery O2 Flow Rate FiO2 06/06/17 12:00 97.8 76 18 161/72 (101) 95 06/06/17 09:25 97 06/06/17 08:00 97.9 70 23 167/72 (103) 97 06/06/17 00:00 98.4 70 17 142/64 (90) 96 06/05/17 20:00 98.9 62 17 153/68 (96) 95 Physical Exam GENERAL: Very pleasant 67 year old male resting in bed in no acute distress. SKIN: Warm and dry. HEAD: Atraumatic. Normocephalic. EYES: Pupils equal and round. No scleral icterus. No injection or drainage. ENT: No nasal bleeding or discharge. Mucous membranes pink and moist. NECK: Trachea midline. CARDIOVASCULAR: Regular rate and rhythm. RESPIRATORY: No accessory muscle use. Clear to auscultation. Breath sounds equal bilaterally. GASTROINTESTINAL: Abdomen soft, non tender, non distended; well healing scars-- - one with superficial sutures tenting skin but no area of infection. MUSCULOSKELETAL: Extremities without clubbing, cyanosis, or edema. No obvious deformities. NEUROLOGICAL: Awake and alert. No obvious cranial nerve deficits. Motor grossly within normal limits. Five out of 5 muscle strength in the arms and legs. Normal speech. PSYCHIATRIC: Appropriate mood and affect; insight and judgment normal. Laboratory Laboratory Tests Test 06/06/17 05:33 White Blood Count 7.6 Red Blood Count 3.93 Hemoglobin 11.6 Hematocrit 34.8 Mean Corpuscular Volume 88.6 Mean Corpuscular Hemoglobin 29.6 Mean Corpuscular Hemoglobin Concent 33.4 Red Cell Distribution Width 12.9 Platelet Count 415 Mean Platelet Volume 6.7 Neutrophils (%) (Auto) 71.1 Lymphocytes (%) (Auto) 12.2 Monocytes (%) (Auto) 8.8 Eosinophils (%) (Auto) 7.3 Basophils (%) (Auto) 0.6 Neutrophils # (Auto) 5.4 Lymphocytes # (Auto) 0.9 Monocytes # (Auto) 0.7 Eosinophils # (Auto) 0.6 Basophils # (Auto) 0.0 CBC Comment DIFF FINAL Differential Comment Blood Urea Nitrogen 11 Creatinine 0.67 Random Glucose 88 Total Protein 6.7 Albumin 2.3 Calcium Level 8.3 Alkaline Phosphatase 72 Aspartate Amino Transf (AST/SGOT) 10 Alanine Aminotransferase (ALT/SGPT) 15 Total Bilirubin 0.2 Sodium Level 141 Potassium Level 3.6 Chloride Level 108 Carbon Dioxide Level 22.2 Anion Gap 11 Estimat Glomerular Filtration Rate 118 Result Diagram: 06/06/17 0533 06/06/17 0533 Imaging Last 48 hours Impressions Hepatobiliary Scan Nuclear Medicine 06/06/17 0000 Signed Impressions: Service Date/Time: Tuesday, June 06, 2017 13:59 - CONCLUSION: 1. Status post cholecystectomy. 2. No evidence of biliary obstruction or biloma. Rey Hargrove MD Assessment and Plan Assessment and Plan 67 year old male s/p open cholecystectomy about 5 weeks ago; back with pain and nausea/vomiting -Recommend continued workup for nausea with EGD -Monitor labs -IVF -No acute General Surgery issues at this time -Thank you for this consult Attending Note - Dr. Edmondson Patient seen and examined; abdomen benign and soft Suture knot at lateral margin of incision in subq tissue; abdomen soft and nontender; incision healed. The exam, history, and the medical decision-making described in the above note were completed with the assistance of the mid-level provider. I reviewed and agree with the findings presented. I attest that I had a [id number] encounter with the patient on the same day, and personally performed and documented my assessment and findings in the medical record. Discussed Condition With Carey Martell Dr./Maxillofacial Surgeon BALLAST REGULATOR OPERATOR Jun 06, 2017 17:59 Rey Edmondson MD Jun 09, 2017 15:16
[2017-06-06] MEDS ORDERED: LACTATED RINGER'S 1000 ML IV PRN (19:00)
[2017-06-06] MEDS ORDERED: CHLORHEXIDINE GLUCONATE 2 % 1 PACK (2 CLOTHS) TOPICAL PRN (19:00)
[2017-06-06] MEDS ORDERED: POVIDONE IODINE 5% (ANTISEPSIS KIT) 4 APPLICATIONS EACH NARE PRN (19:00)
[2017-06-06] MEDS ORDERED: SODIUM CHLORID 0.9% 500 ML IV PRN (19:00)
[2017-06-07] VITALS: BP 163/78; PULSE 76; RESP 18; TEMP 98.1; O2SAT 97
[2017-06-07 06:53] LABS: BICARBONATE 19.6 MEQ/L (21.0-32.0); CALCIUM 8.3 MG/DL (8.5-10.1); CREATININE 0.67 MG/DL (0.60-1.30)
[2017-06-07 08:00] VITALS: BP 169/77; PULSE 74; RESP 18; TEMP 97.7; O2SAT 93
[2017-06-07] MEDS ORDERED: GLUCAGON 1 MG/ML VIAL IM PRN (08:00)
[2017-06-07] MEDS ORDERED: DEXTROSE 50% IN WATER 50 ML VIAL(D50) IV PUSH PRN (08:00)
[2017-06-07] MEDS: SODIUM CHLOR 0.9% 1000 ML INJ 1,000 ML IV SCH ×2 (08:03→16:23)
[2017-06-07] MEDS: LISINOPRIL 20 MG TAB PO SCH (08:51)
[2017-06-07] MEDS: PRAVASTATIN SOD 20 MG TAB PO SCH (08:52)
[2017-06-07] MEDS: PHENYTOIN SODIUM 100 MG CAP PO SCH ×3 (08:52→17:41)
[2017-06-07] MEDS: PANTOPRAZOLE SOD 40 MG DELAYED RELEASE TAB PO SCH (08:52)
[2017-06-07] MEDS: DOCUSATE SODIUM 50 MG/SENNA 8.6 MG TAB PO SCH ×2 (08:53→22:09)
[2017-06-07] MEDS: POLYETHYLENE GLYCOL 17 GM PKG PO SCH (08:53)
[2017-06-07] MEDS: SODIUM CHLORIDE 0.9% FLUSH 10 ML FLUSH IV FLUSH SCH ×2 (08:54→21:00)
[2017-06-07] MEDS ORDERED: CALCIUM CARBONATE 500 MG CHEWABLE TAB CHEW PRN (09:45)
--- NOTE | 2017-06-07 10:58 | HHI.FPPN ---
Subjective Remarks Patient states that he did well overnight. No problems or complaints. Laid flat in bed most of the time and did not leave the bed. Underwent HIDA scan yesterday. EGD scheduled for today. (Dunia Mejía MD R1) Objective Vitals Vital Signs Date Time Temp Pulse Resp B/P (MAP) Pulse Ox O2 Delivery O2 Flow Rate FiO2 06/07/17 00:00 98.1 76 18 163/78 (106) 97 06/06/17 20:00 98.2 90 18 158/81 (106) 96 06/06/17 17:58 95 21 06/06/17 16:00 97.8 78 24 182/79 (113) 96 06/06/17 12:00 97.8 76 18 161/72 (101) 95 I/O 06/06/17 06/06/17 06/06/17 06/07/17 06/07/17 06/07/17 07:00 15:00 23:00 07:00 15:00 23:00 Intake Total 0 ml Output Total 600 ml 1500 ml Balance -600 ml -1500 ml Intake Oral 0 ml Output Urine Total 600 ml 1500 ml # Bowel Movements 0 (Dunia Mejía MD R1) Result Diagram: 06/06/17 0533 06/07/17 0452 Objective Remarks GENERAL: This is a well-nourished, well-developed patient laying comfortably in bed. SKIN: Warm and dry. S-shaped scar over RUQ, approximately 11cm in length; scar well-healed without evidence of infection. Small pointed bump adjacent to distal end of scar. Drainage sites x2 over RUQ appear well-healed. Tissue underlying scars feels firms. HEAD: Atraumatic. Normocephalic. EYES: Pupils equal round. Extraocular motions intact. No scleral icterus. ENT: Airway patent. CARDIOVASCULAR: Regular rate and rhythm without murmurs, gallops, or rubs. RESPIRATORY: Clear to auscultation anteriorly. GASTROINTESTINAL: Positive bowel sounds appreciated in all quadrants. Abdomen soft, nondistended. Tenderness upon palpation of RUQ. No hepato-splenomegaly, or palpable masses. MUSCULOSKELETAL: Extremities with clubbing. No cyanosis or edema. NEUROLOGICAL: Awake and alert. No focal deficits. Normal speech. Procedures EGD today (Dunia Mejía MD R1) A/P Assessment and Plan Patient is a 67 year old male who presents to the ED for evaluation of right upper quadrant pain, nausea and vomiting. Discharge Planning Pending improved PO intake and ambulation w/minimal pain. (Dunia Mejía MD R1) Attending Attestation Patient seen and examined. Discussed with Dr. Mejía. Agree with assessment and plan as documented. (Prevatte,Marc Meade Jr., MD) Problem List: (1) Abdominal pain ICD Codes: R10.9 - Unspecified abdominal pain Status: Acute Plan: Patient with worsening RUQ pain and epigastric pain as well as nausea and vomiting after meals. Patient has been avoiding food in fear of nausea and vomiting. NG tube placed for decompression on 06/05. Labs 06/04-: WBC within normal limits CT 06/04: Status post interval recent cholecystectomy with postsurgical changes. There is an indistinct fluid collection along the adjacent liver margin which is nonspecific. This may represent his postoperative fluid. An early abscess is felt to be less likely. Short-term CT followup is recommended in 5-7 days or as clinically indicated. The stomach, small bowel, and colon demonstrate no acute abnormality. There is no free intraperitoneal air or fluid. HIDA 06/06: Status post cholecystectomy. No evidence of biliary obstruction of the Patrick. GI consulted; recommendations: * EGD pending GS recommendations, hopefully today * Ordered HIDA scan on 06/06 * Currently NPO * Protonix 40 mg daily * Zofran PRN GS consulted, state patient is clear from their view, recommend GI proceed w/ EGD for upper GI abnormalities. Medications: * Protonix 40mg PO daily. * Zofran 4mg q6hr IV PRN nausea and vomiting. * Morphine for pain control. Patient allergic to acetaminophen and oxycodone but tolerates morphine. Ibuprofen and Toradol contraindicated in active gastric ulcer disease. May consider change in pain management following EGD on Tuesday. * NS 120 mls/hr (reduced from 170mls/hr) Plan: Improvement in pain since admission. No further episodes of vomiting or pain since 06/05 Continue above medications. After EGD procedure today, plan to start clear liquid diet and encourage out of bed ambulation. (2) Hypoglycemia ICD Codes: E16.2 - Hypoglycemia, unspecified Plan: Fasting glucose of 59 this morning. Patient has been n.p.o. since 06/05 Plan to start clear liquid diet after EGD procedure Hypoglycemia protocol if needed (3) Nausea & vomiting ICD Codes: R11.2 - Nausea with vomiting, unspecified Status: Acute Plan: * See Plan for Abdominal pain. (4) Seizure Status: Chronic Plan: Patient with remote history of seizure. * Continue phenytoin daily (5) HTN (hypertension) ICD Codes: I10 - Essential (primary) hypertension Status: Chronic Plan: Patient with history of hypertension. BP 150s-160s/70-80s overnight * Continue lisinopril 40 mg daily. * No further management for now, as patient is n.p.o. and has been experiencing pain. * Patient will need to follow-up with PCP to further manage. (6) Dyslipidemia ICD Codes: E78.5 - Dyslipidemia Status: Chronic Plan: Patient with history of hyperlipidemia. * Continue pravastatin daily (7) Belching ICD Codes: R14.2 - Eructation Plan: Tums BID PRN per patient request (8) Fluid, Electrolyte, Nutrition and Prophylaxis Status: Acute Plan: Fluid: * NS at 170ml/hr. Reduce to maintenance after procedure. Electrolyte: * Monitor and replete as necessary. Nutrition: * NPO. CLD after procedure. Prophylaxis: * SCDs. * Heparin chemical prophylaxis after procedure. (Dunia Mejía MD R1) Dunia Mejía MD R1 Jun 07, 2017 10:58 Marc Vogel Jr., MD Jun 07, 2017 15:21
[2017-06-07] MEDS ORDERED: LIDOCAINE HCL 1% PF 5 ML SYRINGE OTHER ONE (12:00)
[2017-06-07] MEDS ORDERED: PROPOFOL 200 MG/20 ML AMP IV ONE (12:00)
[2017-06-07] MEDS ORDERED: MAGNESIUM CITRATE SOLN 300 ML BTL PO ONE ×4 (12:00→20:00)
--- NOTE | 2017-06-07 14:00 | PD.PROCEDR ---
GI Procedure PROCEDURE PERFORMED EGD with biopsy INDICATION FOR PROCEDURE Abdominal pain, nausea and vomiting PROCEDURE: The procedure, risks and benefits were discussed with Patient/POA and informed consent was obtained. Anesthesia sedated Patient with Diprivan. Patient was placed in the left lateral decubitus position. EGD: The Pentax videoscope was introduced through the oropharynx and advanced to the second portion of the duodenum under direct visualization. Retroflexion was performed in the stomach. FINDINGS: The esophagus this appeared to be unremarkable with normal limits The stomach there was a large amount of fluids and residual food noted in the stomach but the gastric mucosa appeared to be otherwise unremarkable and within normal limits The duodenum as I entered the duodenum through the pylorus there appears to be either a torsion or swelling or stricturing in the area of the duodenal sweep of unclear significance this may represent a torsion or some other abnormality biopsies were taken from this area I was able to pass the scope the rest of the duodenum was unremarkable but certainly with the noted residual in the stomach and this abnormality in the sweep consideration to be made for torsion as a potential cause for pain with nausea vomiting ESTIMATED BLOOD LOSS: None SPECIMENS REMOVED: Duodenal biopsy COMPLICATIONS: None IMPRESSION: Residual food in the stomach Abnormal duodenum possible torsion versus stricture functioning as gastric outlet obstruction PLAN: Await biopsies Recommend upper GI with small bowel follow-through Pernell De La Cruz MD Jun 07, 2017 14:00
[2017-06-07] MEDS: ENOXAPARIN SODIUM 40 MG/0.4 ML SYRINGE SQ SCH (15:32)
[2017-06-07 16:00] VITALS: BP 174/72; PULSE 72; RESP 16; TEMP 98; O2SAT 98
--- NOTE | 2017-06-07 16:04 | HHI.PR ---
cc: Rey Edmondson MD Subjective Subjective Notes Resting in bed No issues Feels hungry Objective Vitals/I&O Vital Signs Date Time Temp Pulse Resp B/P (MAP) Pulse Ox O2 Delivery O2 Flow Rate FiO2 06/07/17 12:52 77 18 176/79 (111) 99 Room Air 06/07/17 08:00 97.7 06/06/17 17:58 21 Labs Laboratory Tests Test 06/07/17 04:52 Blood Urea Nitrogen 12 Creatinine 0.67 Random Glucose 59 Calcium Level 8.3 Sodium Level 139 Potassium Level 3.8 Chloride Level 106 Carbon Dioxide Level 19.6 Anion Gap 13 Estimat Glomerular Filtration Rate 118 Radiology Last 48 hours Impressions Hepatobiliary Scan Nuclear Medicine 06/06/17 0000 Signed Impressions: Service Date/Time: Tuesday, June 06, 2017 13:59 - CONCLUSION: 1. Status post cholecystectomy. 2. No evidence of biliary obstruction or biloma. Rey Hargrove MD Cardiovascular: Regular Lungs: Clear Abdomen: Non-distended, Non-tender Extremities: No edema A/P Assessment and Plan 67 year old male s/p open cholecystectomy about 5 weeks ago; back with pain and nausea/vomiting -EGD done today---- shows possible torsion vs stricture functioning as a gastric outlet obstruction -Plan for SBFT -Monitor labs -IVF -No acute General Surgery issues at this time Attending Note - Dr. Edmondson Torsion not likely; more likely findings due to scarring from open procedure. Soft diet recommended. Ok for discharge. The exam, history, and the medical decision-making described in the above note were completed with the assistance of the mid-level provider. I reviewed and agree with the findings presented. I attest that I had a [id number] encounter with the patient on the same day, and personally performed and documented my assessment and findings in the medical record. Drake,Carey B. SENIOR TELECOMMUNICATIONS TECHNICIAN/Glass Washer SENIOR TELECOMMUNICATIONS TECHNICIAN Jun 07, 2017 16:04 Rey Edmondson MD Jun 08, 2017 08:17
[2017-06-07] MEDS ORDERED: BISACODYL EC 5 MG TABEC PO SCH (18:00)
[2017-06-07 20:00] VITALS: BP 124/55; PULSE 70; RESP 20; TEMP 98; O2SAT 100
[2017-06-07] MEDS ORDERED: BISACODYL EC 5 MG TABEC PO ONE (20:00)
[2017-06-08] VITALS: BP 160/74; PULSE 71; RESP 20; TEMP 98.9; O2SAT 94
[2017-06-08] MEDS: SODIUM CHLOR 0.9% 1000 ML INJ 1,000 ML IV SCH (00:43)
[2017-06-08 04:00] VITALS: BP 149/73; PULSE 70; RESP 20; TEMP 98.8; O2SAT 95
[2017-06-08 08:00] VITALS: BP 148/70; PULSE 74; RESP 18; TEMP 97.5; O2SAT 96
[2017-06-08 08:39] LABS: HEMATOCRIT 34.2 % (39.0-51.0); HEMOGLOBIN 11.3 GM/DL (13.0-17.0); MEAN CELL VOLUME 88.9 FL (80.0-100.0); MEAN CORPUSCULAR HEMOGLOBIN 29.4 PG (27.0-34.0); MEAN CORPUSCULAR HGB CONC 33.1 % (32.0-36.0); MEAN PLATELET VOLUME 6.9 FL (7.0-11.0); PLATELET COUNT 461 TH/MM3 (150-450); RED BLOOD COUNT 3.85 MIL/MM3 (4.50-5.90); RED CELL DISTRIBUTION WIDTH 13.3 % (11.6-17.2); WHITE BLOOD COUNT 7.6 TH/MM3 (4.0-11.0)
[2017-06-08] MEDS: POLYETHYLENE GLYCOL 17 GM PKG PO SCH (08:40)
[2017-06-08] MEDS: DOCUSATE SODIUM 50 MG/SENNA 8.6 MG TAB PO SCH ×2 (08:40→19:57)
[2017-06-08] MEDS: PANTOPRAZOLE SOD 40 MG DELAYED RELEASE TAB PO SCH (08:41)
[2017-06-08] MEDS: PRAVASTATIN SOD 20 MG TAB PO SCH (08:41)
[2017-06-08] MEDS: NS + KCL 20 MEQ INJ 1,000 ML IV SCH ×3 (08:41→23:05)
[2017-06-08] MEDS: PHENYTOIN SODIUM 100 MG CAP PO SCH ×4 (08:42→18:05)
[2017-06-08] MEDS: SODIUM CHLORIDE 0.9% FLUSH 10 ML FLUSH IV FLUSH SCH ×2 (08:42→19:57)
[2017-06-08] MEDS: LISINOPRIL 20 MG TAB PO SCH (08:42)
[2017-06-08 09:02] LABS: ALBUMIN 2.4 GM/DL (3.4-5.0); AST (GOT) 13 U/L (15-37); BLOOD UREA NITROGEN 9 MG/DL (7-18); CALCIUM 8.1 MG/DL (8.5-10.1); CHLORIDE 105 MEQ/L (98-107); CREATININE 0.75 MG/DL (0.60-1.30); GLOMERULAR FILTRATION RATE 103 ML/MIN (>89); GLUCOSE,RANDOM 95 MG/DL (74-106); SODIUM (NA) 140 MEQ/L (136-145)
[2017-06-08 09:09] LABS: ALKALINE PHOSPHATASE 74 U/L (45-117); ALT (GPT) 18 U/L (12-78); TOTAL BILIRUBIN ADULT 0.3 MG/DL (0.2-1.0); TOTAL PROTEIN 6.8 GM/DL (6.4-8.2)
--- NOTE | 2017-06-08 10:40 | HHI.FPPN ---
Subjective Remarks Vitals stable overnight. Blood pressure 124/55-149/73. Patient states that he had chicken soup last night, no pain/nausea/vomiting afterwards. Patient was made n.p.o. after midnight. Has no problems ambulating, has been walking to the bathroom and back. Had multiple bowel movements after ingesting magnesium citrate last night for upper GI series today. No other complaints. Objective Vitals Vital Signs Date Time Temp Pulse Resp B/P (MAP) Pulse Ox O2 Delivery O2 Flow Rate FiO2 06/08/17 08:00 97.5 74 18 148/70 (96) 96 06/08/17 04:00 98.8 70 20 149/73 (98) 95 06/08/17 00:00 98.9 71 20 160/74 (102) 94 06/07/17 20:00 98.0 70 20 124/55 (78) 100 06/07/17 16:00 98.0 72 16 174/72 (106) 98 06/07/17 12:52 77 18 176/79 (111) 99 Room Air I/O 06/07/17 06/07/17 06/07/17 06/08/17 06/08/17 06/08/17 07:00 15:00 23:00 07:00 15:00 23:00 Intake Total 400 ml 420 ml 1000 ml Output Total 650 ml 400 ml Balance 400 ml -230 ml 600 ml Intake Oral 420 ml 0 ml IV Total 1000 ml Other 400 ml Output Urine Total 650 ml 400 ml # Bowel Movements 0 Result Diagram: 06/08/1782606/08/17826 Objective Remarks GENERAL: This is a thin, pale gentleman sitting up comfortably in bed. SKIN: Warm and dry. S-shaped scar over RUQ, approximately 11cm in length; scar well-healed without evidence of infection. Small pointed bump adjacent to distal end of scar. Drainage sites x2 over RUQ appear well-healed. Tissue underlying scars feels firms. HEAD: Atraumatic. Normocephalic. EYES: Pupils equal round. Extraocular motions intact. No scleral icterus. ENT: Airway patent. CARDIOVASCULAR: Regular rate and rhythm without murmurs, gallops, or rubs. RESPIRATORY: Clear to auscultation anteriorly. GASTROINTESTINAL: Positive bowel sounds appreciated in all quadrants. Abdomen soft, nondistended. Tenderness upon palpation of RUQ. No hepato-splenomegaly, or palpable masses. MUSCULOSKELETAL: Extremities with clubbing. No cyanosis or edema. NEUROLOGICAL: Awake and alert. No focal deficits. Normal speech. Procedures EGD on 06/07 Trial of NG tube decompression on 06/05 A/P Assessment and Plan Patient is a 67 year old male who presents to the ED for evaluation of right upper quadrant pain, nausea and vomiting. Discharge Planning Pending improved PO intake and ambulation w/minimal pain. Problem List: (1) Abdominal pain ICD Codes: R10.9 - Unspecified abdominal pain Status: Acute Plan: Patient with worsening RUQ pain and epigastric pain as well as nausea and vomiting after meals. Patient has been avoiding food in fear of nausea and vomiting. NG tube placed for decompression on 06/05. Labs 06/04-: WBC within normal limits CT 06/04: Status post interval recent cholecystectomy with postsurgical changes. There is an indistinct fluid collection along the adjacent liver margin which is nonspecific. This may represent his postoperative fluid. An early abscess is felt to be less likely. Short-term CT followup is recommended in 5-7 days or as clinically indicated. The stomach, small bowel, and colon demonstrate no acute abnormality. There is no free intraperitoneal air or fluid. HIDA 06/06: Status post cholecystectomy. No evidence of biliary obstruction of the Patrick. EGD with biopsy 06/07: Residual food in the stomach, abnormal duodenum possible torsion versus stricture functioning is gastric outlet obstruction GI consulted; recommendations: * Upper GI series with small bowel follow-through * Currently NPO for procedure * Protonix 40 mg daily * Zofran PRN GS consulted; recommendations: * Torsion not likely, more likely findings due to scarring from open procedure * Soft diet recommended * Okay for discharge state patient is clear from their view Medications: * Protonix 40mg PO daily. * Zofran 4mg q6hr IV PRN nausea and vomiting. * Morphine for pain control. Patient allergic to acetaminophen and oxycodone but tolerates morphine. Ibuprofen and Toradol contraindicated in active gastric ulcer disease. May consider change in pain management following EGD on Tuesday. * NS 120 mls/hr with 20 meq/L of potassium chloride Plan: Continue above medications. After procedure today, resume clear liquid diet (2) Hypoglycemia ICD Codes: E16.2 - Hypoglycemia, unspecified Status: Resolved Plan: Fasting glucose of 59 on 06/08 Patient has been n.p.o. from 06/05-06/08 Was able to have soup last night Resolved, random glucose this morning 95 (3) Nausea & vomiting ICD Codes: R11.2 - Nausea with vomiting, unspecified Status: Resolved Plan: * See Plan for Abdominal pain. (4) Seizure Status: Chronic Plan: Patient with remote history of seizure. * Continue phenytoin daily (5) HTN (hypertension) ICD Codes: I10 - Essential (primary) hypertension Status: Chronic Plan: Patient with history of hypertension. * Continue lisinopril 40 mg daily. * No further management for now, as patient is n.p.o. * Patient will need to follow-up with PCP to further manage. (6) Dyslipidemia ICD Codes: E78.5 - Dyslipidemia Status: Chronic Plan: Patient with history of hyperlipidemia. * Continue pravastatin daily (7) Fluid, Electrolyte, Nutrition and Prophylaxis Status: Acute Plan: Fluid: * NS at 120ml/hr Electrolyte: * Monitor and replete as necessary. Nutrition: * NPO. CLD after procedure. Prophylaxis: * SCDs. * Lovenox every 24H for DVT prophylaxis Dunia Mejía MD R1 Jun 08, 2017 10:40
[2017-06-08] MEDS ORDERED: POTASSIUM CHLORIDE INJ 20 MEQ in SODIUM CHLOR 0.9% 1000 ML INJ 1,000 ML IV SCH (13:32)
--- NOTE | 2017-06-08 14:32 | HHI.GIFU ---
Subjective Remarks Resting in the bed Has had partial small bowel follow-through testing this morning and will go back this afternoon to complete at 4 PM Currently n.p.o. Chief complaint is increased belching when sitting up (Lenka Smith) Objective Vitals I&O Vital Signs Date Time Temp Pulse Resp B/P (MAP) Pulse Ox O2 Delivery O2 Flow Rate FiO2 06/08/17 08:00 97.5 74 18 148/70 (96) 96 06/08/17 04:00 98.8 70 20 149/73 (98) 95 06/08/17 00:00 98.9 71 20 160/74 (102) 94 06/07/17 20:00 98.0 70 20 124/55 (78) 100 06/07/17 16:00 98.0 72 16 174/72 (106) 98 I/O 06/07/17 06/07/17 06/07/17 06/08/17 06/08/17 06/08/17 07:00 15:00 23:00 07:00 15:00 23:00 Intake Total 400 ml 420 ml 1000 ml Output Total 650 ml 400 ml Balance 400 ml -230 ml 600 ml Intake Oral 420 ml 0 ml IV Total 1000 ml Other 400 ml Output Urine Total 650 ml 400 ml # Bowel Movements 0 Laboratory Laboratory Tests Test 06/08/17 08:27 White Blood Count 7.6 Red Blood Count 3.85 Hemoglobin 11.3 Hematocrit 34.2 Mean Corpuscular Volume 88.9 Mean Corpuscular Hemoglobin 29.4 Mean Corpuscular Hemoglobin Concent 33.1 Red Cell Distribution Width 13.3 Platelet Count 461 Mean Platelet Volume 6.9 Blood Urea Nitrogen 9 Creatinine 0.75 Random Glucose 95 Total Protein 6.8 Albumin 2.4 Calcium Level 8.1 Alkaline Phosphatase 74 Aspartate Amino Transf (AST/SGOT) 13 Alanine Aminotransferase (ALT/SGPT) 18 Total Bilirubin 0.3 Sodium Level 140 Potassium Level 3.4 Chloride Level 105 Carbon Dioxide Level 22.0 Anion Gap 13 Estimat Glomerular Filtration Rate 103 Imaging Last Impressions Hepatobiliary Scan Nuclear Medicine 06/06/17 0000 Signed Impressions: Service Date/Time: Tuesday, June 06, 2017 13:59 - CONCLUSION: 1. Status post cholecystectomy. 2. No evidence of biliary obstruction or biloma. Rey Hargrove MD Chest X-Ray 06/04/17 1332 Signed Impressions: Service Date/Time: Sunday, June 04, 2017 14:25 - CONCLUSION: Developing airspace disease posteriorly in the right lower lobe. Raffy Brunner MD Abdomen/Pelvis CT 06/04/17 0756 Signed Impressions: Service Date/Time: Sunday, June 04, 2017 09:39 - CONCLUSION: Status post interval recent cholecystectomy with postsurgical changes. There is an indistinct fluid collection along the adjacent liver margin which is nonspecific. This may represent his postoperative fluid. An early abscess is felt to be less likely. Short-term CT followup is recommended in 5-7 days or as clinically indicated. Rey Hargrove MD Physical Exam HEENT: Normocephalic; atraumatic, speech and oral cavity is clear, belching CHEST: Even/unlabored no obvious shortness of breath CARDIAC: RRR ABDOMEN: Soft, nondistended, generalized upper abdominal soreness; bowel sounds active SKIN: Normal; no rash; no jaundice. ENGINEERING OPERATOR: No focal deficits; alert and oriented times three. (Lenka Smith) Assessment and Plan Plan Assessment: History - Epigastric pain with nausea and emesis- began on Tuesday states worse 4-5 hours after eating. Saw his PCP this month who was concerned he may have a gastric ulcer prescribed Carafate and a "brown pill". Pt has never had EGD.Risk factors: NSAID use after recent surgery. Denies ETOH, smoking, blood thinners. H/H stable from previous admission in April, currently 12.9/38.2 - Elevated lipase- pt denies history of pancreatitis CT abdomen and pelvis W IV contrast (06/04) --> Status post interval recent cholecystectomy with postsurgical changes. There is an indistinct fluid collection along the adjacent liver margin which is nonspecific. This may represent his postoperative fluid. An early abscess is felt to be less likely. Short-term CT followup is recommended in 5-7 days or as clinically indicated. LFTs WNL: AST-26 ALT-27 T bili-0.4 Alk phos-94 Pt unable to have MRI due to metal plate in his skull - RUQ pain- S/P pen cholecystectomy with CBD exploration with stone extraction and T tube placement which has since been removed. Followed up with last Wednesday who states pain may persist for months (06/05) --> Pt with continued abdominal pain, better after Morphine. Some nausea , currently controlled. GS consult pending. Will await there recommendations before possibly proceeding with EGD. 06/06/2017, possible biliary obstruction to be ruled out 06/08/2017, patient had EGD on 06/07/2017 results show residual food in the stomach Abnormal duodenum possible torsion versus stricture functioning as gastric outlet obstruction. Evaluated per general surgery on 06-07. No surgical intervention at this time, Dr. Edmondson and Sanna CASTRO came in to see patient , explained plan of care to him. Encouraged him to drink liquids and eat very soft foods that are easy to swallow, milkshakes, ice cream, smoothies, etc. Upper GI and small bowel follow-through results are pending. Will finish up test this p.m. at 4. Plan: Small bowel follow-through follow-up after tests completed Protonix Nausea medication PRN Monitor labs and meds Further recommendations based on findings after small bowel follow-through completed from GI perspective Pt has been seen and examined by myself and Dr. De La Cruz and this note is written on his behalf (Lenka Smith) Physician Comments Patient seen and examined Upper GI series with small bowel follow-through basically unremarkable at this point We shall advance diet and see how patient functions The duodenal biopsies are basically unremarkable Further recommendations shall depend on his hospital course (Pernell De La Cruz MD) Lenka Smith Jun 08, 2017 14:32 Pernell De La Cruz MD Jun 08, 2017 22:49
[2017-06-08] MEDS: ENOXAPARIN SODIUM 40 MG/0.4 ML SYRINGE SQ SCH (15:00)
--- NOTE | 2017-06-08 15:46 | HHI.PR ---
cc: Rey Edmondson MD Subjective Subjective Notes Resting in bed TRANSFILL TECHNICIAN Lenka from GI also in room No further nausea Objective Vitals/I&O Vital Signs Date Time Temp Pulse Resp B/P (MAP) Pulse Ox O2 Delivery O2 Flow Rate FiO2 06/08/17 08:00 97.5 74 18 148/70 (96) 96 06/07/17 12:52 Room Air 06/06/17 17:58 21 Labs Laboratory Tests Test 06/08/17 08:27 White Blood Count 7.6 Red Blood Count 3.85 Hemoglobin 11.3 Hematocrit 34.2 Mean Corpuscular Volume 88.9 Mean Corpuscular Hemoglobin 29.4 Mean Corpuscular Hemoglobin Concent 33.1 Red Cell Distribution Width 13.3 Platelet Count 461 Mean Platelet Volume 6.9 Blood Urea Nitrogen 9 Creatinine 0.75 Random Glucose 95 Total Protein 6.8 Albumin 2.4 Calcium Level 8.1 Alkaline Phosphatase 74 Aspartate Amino Transf (AST/SGOT) 13 Alanine Aminotransferase (ALT/SGPT) 18 Total Bilirubin 0.3 Sodium Level 140 Potassium Level 3.4 Chloride Level 105 Carbon Dioxide Level 22.0 Anion Gap 13 Estimat Glomerular Filtration Rate 103 Radiology Last 48 hours Impressions Hepatobiliary Scan Nuclear Medicine 06/06/17 0000 Signed Impressions: Service Date/Time: Tuesday, June 06, 2017 13:59 - CONCLUSION: 1. Status post cholecystectomy. 2. No evidence of biliary obstruction or biloma. Rey Hargrove MD Cardiovascular: Regular Lungs: Clear Abdomen: Non-distended, Non-tender Extremities: No edema A/P Assessment and Plan 67 year old male s/p open cholecystectomy about 5 weeks ago; back with pain and nausea/vomiting -EGD done yesterday---- shows possible torsion vs stricture functioning as a gastric outlet obstruction -Last XR this afternoon for SBFT -Recommend a soft diet to the patient -Monitor labs -IVF -No acute General Surgery issues at this time Attending Note - Dr. Edmondson Tolerated clears; SBFT negative for obstruction OK for discharge Will see as needed. The exam, history, and the medical decision-making described in the above note were completed with the assistance of the mid-level provider. I reviewed and agree with the findings presented. I attest that I had a [id number] encounter with the patient on the same day, and personally performed and documented my assessment and findings in the medical record. Carey Juan/Iron Worker Foreman ARNP Jun 08, 2017 15:46 Rey Edmondson MD Jun 09, 2017 15:02
[2017-06-08 16:00] VITALS: BP 153/72; PULSE 77; RESP 18; TEMP 97.9; O2SAT 94
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
[2017-06-08 19:52] VITALS: BP 173/81; PULSE 76; RESP 18; O2SAT 94
[2017-06-08 19:58] VITALS: BP 180/85; PULSE 77; RESP 18; TEMP 97.9; O2SAT 96
[2017-06-08] MEDS ORDERED: cloNIDine HCL 0.1 MG TAB PO PRN (20:15)
--- NOTE | 2017-06-09 07:10 | HHI.FPPN ---
Subjective Remarks Patient did well overnight, no nausea, vomiting, abdominal pain, distension, or constipation. Had soup last night, tolerated without problems. Ordered soft breakfast this morning. No problems ambulating - walked with director community health nursing this morning and had no issues with gait or balance. Hesitant to go home, afraid of vomiting and pain returning. Objective Vitals Vital Signs Date Time Temp Pulse Resp B/P (MAP) Pulse Ox O2 Delivery O2 Flow Rate FiO2 06/08/17 19:58 97.9 77 18 180/85 (116) 96 06/08/17 19:52 76 18 173/81 (111) 94 06/08/17 16:00 97.9 77 18 153/72 (99) 94 06/08/17 08:00 97.5 74 18 148/70 (96) 96 I/O 06/08/17 06/08/17 06/08/17 06/09/17 06/09/17 06/09/17 07:00 15:00 23:00 07:00 15:00 23:00 Intake Total 1000 ml 1560 ml Output Total 400 ml 900 ml 600 ml Balance 600 ml 660 ml -600 ml Intake Oral 0 ml 480 ml IV Total 1000 ml 1080 ml Output Urine Total 400 ml 900 ml 600 ml # Bowel Movements 1 Result Diagram: 06/08/17 0806/08/17 08 Objective Remarks GENERAL: This is a thin, pale gentleman sitting up comfortably in bed. SKIN: Warm and dry. S-shaped scar over RUQ, approximately 11cm in length; scar well-healed without evidence of infection. Small pointed bump adjacent to distal end of scar. Drainage sites x2 over RUQ appear well-healed. Tissue underlying scars feels firms. HEAD: Atraumatic. Normocephalic. EYES: Pupils equal round. Extraocular motions intact. No scleral icterus. ENT: Airway patent. CARDIOVASCULAR: Regular rate and rhythm without murmurs, gallops, or rubs. RESPIRATORY: Clear to auscultation anteriorly. GASTROINTESTINAL: Positive bowel sounds appreciated in all quadrants. Abdomen soft, nondistended. Slightly tender upon palpation of RUQ. No hepato- splenomegaly, or palpable masses. MUSCULOSKELETAL: Extremities with clubbing. No cyanosis or edema. NEUROLOGICAL: Awake and alert. No focal deficits. Normal speech. Procedures EGD on 06/07 Trial of NG tube decompression on 06/05 A/P Assessment and Plan Patient is a 67 year old male who presents to the ED for evaluation of right upper quadrant pain, nausea and vomiting. Discharge Planning Likely DC today pending GI recs and if able to tolerate breakfast. Spoke w/GI Dr. De La Cruz today: patient ok'd to be discharged: upper GI series showed no abnormalities and PO intake has improved, symptoms likely secondary to small bowel obstruction caused by transient volvulus. Patient may follow-up w/GI as needed if symptoms return. PT had recommended home health PT if patient's gait remained unsteady. Will not provide home health PT, as patient had previously discussed he didn't think he needed it; denies he is unsteady or off balance and states he has been walking around without any problems. Walked the floor with a director community health nursing and was observed to have no problems with balance or gait. Follow-up w/PCP for further monitoring/evaluation. Problem List: (1) Intermittent small bowel obstruction ICD Codes: K56.609 - Unspecified intestinal obstruction, unspecified as to partial versus complete obstruction Plan: Patient with worsening RUQ pain and epigastric pain as well as nausea and vomiting after meals. Patient has been avoiding food in fear of nausea and vomiting. NG tube placed for decompression on 06/05. Abdominal pain differential: small bowel obstruction v intestinal volvulus v postcholecystectomy syndrome v gastroparesis Labs 06/04-: WBC within normal limits CT 06/04: Status post interval recent cholecystectomy with postsurgical changes. There is an indistinct fluid collection along the adjacent liver margin which is nonspecific. This may represent his postoperative fluid. An early abscess is felt to be less likely. Short-term CT followup is recommended in 5-7 days or as clinically indicated. The stomach, small bowel, and colon demonstrate no acute abnormality. There is no free intraperitoneal air or fluid. HIDA 06/06: Status post cholecystectomy. No evidence of biliary obstruction of the [place]. EGD with biopsy 06/07: Residual food in the stomach, abnormal duodenum possible torsion versus stricture functioning is gastric outlet obstruction 06/09 Upper GI series w/small bowel follow through: The stomach is markedly distended. Contrast emptied out of the stomach with relative ease with out evidence of fold thickening or torsion. Examination of the stomach demonstrates no evidence of intraluminal mass or extrinsic compression. There are no findings of ulceration. The mucosal pattern appears normal. The duodenal bulb and sweep appear normal. The visualized small bowel is unremarkable. GI consulted; recommendations from 06/08: * Protonix 40 mg daily * Zofran PRN * Slow diet advance GS consulted; recommendations: * Torsion not likely, more likely findings due to scarring from open procedure * Soft diet recommended * Okay for discharge state patient is clear from their view Medications: * Protonix 40mg PO daily. * Zofran 4mg q6hr IV PRN nausea and vomiting. * Morphine for pain control. Has not used since 06/06. Plan: - Follow-up GI recommendations - Protonix not indicated, as patient does not have evidence of GERD at this time. May be further evaluated by PCP. - Soft diet, discontinued IVF - DC likely today w/PCP and GI follow up (2) Seizure Status: Chronic Plan: Patient with remote history of seizure. * Continue phenytoin daily (3) HTN (hypertension) ICD Codes: I10 - Essential (primary) hypertension Status: Chronic Plan: Patient with history of hypertension. * Continue lisinopril 40 mg daily. * No further management for now, as patient is n.p.o. * Patient will need to follow-up with PCP to further manage * Clonidine 0.1 mg PO Q6H PRN for BP >170/100 (4) Dyslipidemia ICD Codes: E78.5 - Dyslipidemia Status: Chronic Plan: Patient with history of hyperlipidemia. * Continue pravastatin daily (5) Fluid, Electrolyte, Nutrition and Prophylaxis Status: Acute Plan: Fluid: * PO Electrolyte: * Monitor and replete as necessary. Nutrition: * Soft Prophylaxis: * SCDs. * Lovenox every 24H for DVT prophylaxis Dunia Mejía MD R1 Jun 09, 2017 07:10
[2017-06-09 07:18] VITALS: BP 155/74; PULSE 69; RESP 20; TEMP 98.2; O2SAT 95
[2017-06-09] MEDS: PRAVASTATIN SOD 20 MG TAB PO SCH (08:46)
[2017-06-09] MEDS: POLYETHYLENE GLYCOL 17 GM PKG PO SCH (08:46)
[2017-06-09] MEDS: DOCUSATE SODIUM 50 MG/SENNA 8.6 MG TAB PO SCH (08:47)
[2017-06-09] MEDS: PHENYTOIN SODIUM 100 MG CAP PO SCH ×2 (08:47→13:19)
[2017-06-09] MEDS: SODIUM CHLORIDE 0.9% FLUSH 10 ML FLUSH IV FLUSH SCH (08:47)
[2017-06-09] MEDS: PANTOPRAZOLE SOD 40 MG DELAYED RELEASE TAB PO SCH (08:48)
[2017-06-09] MEDS: LISINOPRIL 20 MG TAB PO SCH (08:48)
[2017-06-09 11:18] VITALS: BP 151/72; PULSE 70; RESP 20; TEMP 97.7; O2SAT 95
[2017-06-09] MEDS ORDERED: OMEP20TA93 PO (12:12)
--- NOTE | 2017-06-09 12:16 | HHI.DCPOC ---
Discharge Care Plan Diagnosis: (1) Intermittent small bowel obstruction Goals to Promote Your Health * To prevent worsening of your condition and complications * To maintain your health at the optimal level Directions to Meet Your Goals Take your medications as prescribed Follow your dietary instruction Follow activity as directed Keep your appointments as scheduled Take your immunizations and boosters as scheduled If your symptoms worsen call your PCP, if no PCP go to Urgent Care Center or Emergency Room Smoking is Dangerous to Your Health. Avoid second hand smoke Call the 24-hour hour crisis hotline for domestic abuse at Dunia Mejía MD R1 Jun 09, 2017 12:16
--- NOTE | 2017-06-09 13:48 | HHI.GIFU ---
Subjective Remarks Resting in the bed Post breakfast, states he feels a little full but no nausea and vomiting Mild anxiety continues but seems to be better than 24 hours ago Hemoglobin 11.3 no obvious bleeding (Lenka Smith) Objective Vitals I&O Vital Signs Date Time Temp Pulse Resp B/P (MAP) Pulse Ox O2 Delivery O2 Flow Rate FiO2 06/09/17 11:18 97.7 70 20 151/72 (98) 95 06/09/17 07:18 98.2 69 20 155/74 (101) 95 06/08/17 19:58 97.9 77 18 180/85 (116) 96 06/08/17 19:52 76 18 173/81 (111) 94 06/08/17 16:00 97.9 77 18 153/72 (99) 94 I/O 06/08/17 06/08/17 06/08/17 06/09/17 06/09/17 06/09/17 07:00 15:00 23:00 07:00 15:00 23:00 Intake Total 1000 ml 1560 ml 900 ml Output Total 400 ml 900 ml 600 ml Balance 600 ml 660 ml -600 ml 900 ml Intake Oral 0 ml 480 ml IV Total 1000 ml 1080 ml 900 ml Output Urine Total 400 ml 900 ml 600 ml # Bowel Movements 1 Laboratory Laboratory Tests Test 06/08/17 08:27 White Blood Count 7.6 TH/MM3 Red Blood Count 3.85 MIL/MM3 Hemoglobin 11.3 GM/DL Hematocrit 34.2 % Mean Corpuscular Volume 88.9 FL Mean Corpuscular Hemoglobin 29.4 PG Mean Corpuscular Hemoglobin Concent 33.1 % Red Cell Distribution Width 13.3 % Platelet Count 461 TH/MM3 Mean Platelet Volume 6.9 FL Blood Urea Nitrogen 9 MG/DL Creatinine 0.75 MG/DL Random Glucose 95 MG/DL Total Protein 6.8 GM/DL Albumin 2.4 GM/DL Calcium Level 8.1 MG/DL Alkaline Phosphatase 74 U/L Aspartate Amino Transf (AST/SGOT) 13 U/L Alanine Aminotransferase (ALT/SGPT) 18 U/L Total Bilirubin 0.3 MG/DL Sodium Level 140 MEQ/L Potassium Level 3.4 MEQ/L Chloride Level 105 MEQ/L Carbon Dioxide Level 22.0 MEQ/L Anion Gap 13 MEQ/L Estimat Glomerular Filtration Rate 103 ML/MIN Imaging Last Impressions Upper GI and Small Bowel X-Ray 06/08/17 0000 Signed Impressions: Service Date/Time: Thursday, June 08, 2017 10:55 - CONCLUSION: Unremarkable upper gastrointestinal examination except for a distended stomach. At this point the stomach is empty normally the. Mingo Muniz MD Hepatobiliary Scan Nuclear Medicine 06/06/17 0000 Signed Impressions: Service Date/Time: Tuesday, June 06, 2017 13:59 - CONCLUSION: 1. Status post cholecystectomy. 2. No evidence of biliary obstruction or biloma. Rey Hargrove MD Chest X-Ray 06/04/17 1332 Signed Impressions: Service Date/Time: Sunday, June 04, 2017 14:25 - CONCLUSION: Developing airspace disease posteriorly in the right lower lobe. Raffy Brunner MD Abdomen/Pelvis CT 06/04/17 0756 Signed Impressions: Service Date/Time: Sunday, June 04, 2017 09:39 - CONCLUSION: Status post interval recent cholecystectomy with postsurgical changes. There is an indistinct fluid collection along the adjacent liver margin which is nonspecific. This may represent his postoperative fluid. An early abscess is felt to be less likely. Short-term CT followup is recommended in 5-7 days or as clinically indicated. Rey Hargrove MD Physical Exam HEENT: Normocephalic; atraumatc, no complaining of belching this a.m., mild nausea after eating breakfast but no vomiting CHEST: Even/unlabored no obvious shortness of breath CARDIAC: RRR ABDOMEN: Soft, nondistended, generalized upper abdominal soreness; bowel sounds active SKIN: Normal; no rash; no jaundice. OB/GYN DOCTOR: No focal deficits; alert and oriented times three. Mild anxiety (Lenka Smith) Assessment and Plan Plan Assessment: History - Epigastric pain with nausea and emesis- began on Tuesday states worse 4-5 hours after eating. Saw his PCP this month who was concerned he may have a gastric ulcer prescribed Carafate and a "brown pill". Pt has never had EGD.Risk factors: NSAID use after recent surgery. Denies ETOH, smoking, blood thinners. H/H stable from previous admission in April, currently 12.9/38.2 - Elevated lipase- pt denies history of pancreatitis CT abdomen and pelvis W IV contrast (06/04) --> Status post interval recent cholecystectomy with postsurgical changes. There is an indistinct fluid collection along the adjacent liver margin which is nonspecific. This may represent his postoperative fluid. An early abscess is felt to be less likely. Short-term CT followup is recommended in 5-7 days or as clinically indicated. LFTs WNL: AST-26 ALT-27 T bili-0.4 Alk phos-94 Pt unable to have MRI due to metal plate in his skull - RUQ pain- S/P pen cholecystectomy with CBD exploration with stone extraction and T tube placement which has since been removed. Followed up with GS last Tuesday who states pain may persist for months (06/05) --> Pt with continued abdominal pain, better after Morphine. Some nausea , currently controlled. GS consult pending. Will await there recommendations before possibly proceeding with EGD. 06/06/2017, possible biliary obstruction to be ruled out 06/08/2017, patient had EGD on 06/07/2017 results show residual food in the stomach Abnormal duodenum possible torsion versus stricture functioning as gastric outlet obstruction. Evaluated per general surgery on 06-07. No surgical intervention at this time, Dr. Edmondson and Sanna CASTRO came in to see patient , explained plan of care to him. Encouraged him to drink liquids and eat very soft foods that are easy to swallow, milkshakes, ice cream, smoothies, etc. Upper GI and small bowel follow-through results are pending. Will finish up test this p.m. at 4. 06/10/2007, patient is resting in the bed. Seems to be tolerating small amounts of soft foods without nausea or vomiting. Continues with some mild anxiety over eating but seems in better spirits today. Hemoglobin 11.3 no obvious bleeding. Mild tenderness to light palpation to right side of abdomen and midabdomen otherwise negative. Small bowel follow-through unremarkable upper GI exam except for a distended stomach at this point the stomach is empty and normally. duodenal biopsies showed mucosal congestion. Plan: Protonix Increase activity including sitting up in bed and chair, ambulation as necessary Small meals, small bites of food, eat slowly increased hydration when eating, soft palate foods Nausea medication PRN Monitor labs and meds Supportive care Pt has been seen and examined by myself and Dr. De La Cruz and this note is written on his behalf (Luis,Lenka M. [employer] HEL[employer]) Physician Comments Patient seen and examined Agree with above Continue with current supportive care Monitor labs Most likely he had a torsion or volvulus that reduced with endoscopy (Pernell De La Cruz MD) Lenka Smith Jun 09, 2017 13:48 Pernell De La Cruz MD Jun 09, 2017 21:34
--- NOTE | 2017-06-09 14:03 | HHI.DS ---
Discharge Summary Admission Date Jun 08, 2017 at 08:31 Discharge Date: Jun 09, 2017 Admitting Diagnosis Abdominal pain (1) Intermittent small bowel obstruction Plan: Initially placed on IVF, Zofran for nausea, morphien for pain control, and made NPO GI and GS consulted NG tube placed for decompression on 06/05. GI consulted; recommendations from 06/08: * Transient small bowel obstruction 2/2 to torsion or volvulus possibly relieved by EGD (per conversation w/GI Dr. De La Cruz) GS consulted; recommendations: * Torsion not likely, more likely findings due to scarring from open procedure * Soft diet recommended * Okay for discharge, state patient is clear from their view Plan: - Follow-up GI recommendations - Protonix not indicated, as patient does not have evidence of GERD at this time. May be further evaluated by PCP. - Soft diet, discontinued IVF - DC likely today w/PCP - If symptoms return, see GI as needed ICD Codes: K56.609 - Unspecified intestinal obstruction, unspecified as to partial versus complete obstruction (2) Seizure Plan: Patient with remote history of seizure. * Continue phenytoin daily Status: Chronic (3) HTN (hypertension) Plan: Patient with history of hypertension. * Continue lisinopril 40 mg daily * Patient will need to follow-up with PCP to further manage if needed ICD Codes: I10 - Essential (primary) hypertension Status: Chronic (4) Dyslipidemia Plan: Patient with history of hyperlipidemia. * Continue pravastatin daily ICD Codes: E78.5 - Dyslipidemia Status: Chronic Procedures EGD on 06/07 Trial of NG tube decompression on 06/05 Brief History Patient is a 67 year old male who presents to the ED for evaluation of right upper quadrant pain, nausea and vomiting. Patient was recently hospitalized for acute cholecystitis with choledocholithiasis. On 05/01, he underwent a laparoscopic cholecystectomy, which was then converted to an open procedure with common bile duct exploration , stone extraction and cholangioscopy. A T-tube cholangiogram was obtained as well. A SUSAN drain was placed and T-tube secured. Patient was discharged on 05/06. Patient reports continued abdominal pain. He states that despite surgery he continued with right upper quadrant abdominal pain. He is unsure whether the pain pre-op was different than the pain post-up. He describes significant discomfort with SUSAN drain and T-tube in place. The pain was alleviated following removal of SUSAN drain and T-tube but did not completely resolve. The patient contacted Dr. Edmondson's office on Tuesday (06/01) and was reassured that pain may persist for months following surgery. The patient started to experience more severe pain later that day. He is unable to describe the pain but says it "takes my breath away." Movement aggravates the pain. Patient also reports nausea and vomiting for the past 3-4 days. He experiences nausea and vomiting several hours after he eats; he states that he has been adherent to dietary recommendations made after the cholecystectomy. He says he feels fine after the vomits but has avoided food over the past few days in fear of nausea and vomiting. He denies blood in vomitus. Patient reports increased burping. Patient reports diarrhea on Tuesday. His last bowel movement was . CBC/BMP: 06/08/17 0827 06/08/17 0827 Significant Findings Laboratory Tests Test 06/07/17 04:52 06/08/17 08:27 Random Glucose 59 MG/DL (74-106) Calcium Level 8.3 MG/DL (8.5-10.1) 8.1 MG/DL (8.5-10.1) Carbon Dioxide Level 19.6 MEQ/L (21.0-32.0) Red Blood Count 3.85 MIL/MM3 (4.50-5.90) Hemoglobin 11.3 GM/DL (13.0-17.0) Hematocrit 34.2 % (39.0-51.0) Platelet Count 461 TH/MM3 (150-450) Mean Platelet Volume 6.9 FL (7.0-11.0) Albumin 2.4 GM/DL (3.4-5.0) Aspartate Amino Transf (AST/SGOT) 13 U/L (15-37) Potassium Level 3.4 MEQ/L (3.5-5.1) Imaging Last Impressions Upper GI and Small Bowel X-Ray 06/08/17 0000 Signed Impressions: Service Date/Time: Thursday, June 08, 2017 10:55 - CONCLUSION: Unremarkable upper gastrointestinal examination except for a distended stomach. At this point the stomach is empty normally the. Mingo Muniz MD Hepatobiliary Scan Nuclear Medicine 06/06/17 0000 Signed Impressions: Service Date/Time: Tuesday, June 06, 2017 13:59 - CONCLUSION: 1. Status post cholecystectomy. 2. No evidence of biliary obstruction or biloma. Rey Hargrove MD Chest X-Ray 06/04/17 1332 Signed Impressions: Service Date/Time: Sunday, June 04, 2017 14:25 - CONCLUSION: Developing airspace disease posteriorly in the right lower lobe. Raffy Brunner MD Abdomen/Pelvis CT 06/04/17 0756 Signed Impressions: Service Date/Time: Sunday, June 04, 2017 09:39 - CONCLUSION: Status post interval recent cholecystectomy with postsurgical changes. There is an indistinct fluid collection along the adjacent liver margin which is nonspecific. This may represent his postoperative fluid. An early abscess is felt to be less likely. Short-term CT followup is recommended in 5-7 days or as clinically indicated. Rey Hargrove MD PE at Discharge GENERAL: This is a thin, pale gentleman sitting up comfortably in bed. SKIN: Warm and dry. S-shaped scar over RUQ, approximately 11cm in length; scar well-healed without evidence of infection. Small pointed bump adjacent to distal end of scar. Drainage sites x2 over RUQ appear well-healed. Tissue underlying scars feels firms. HEAD: Atraumatic. Normocephalic. EYES: Pupils equal round. Extraocular motions intact. No scleral icterus. ENT: Airway patent. CARDIOVASCULAR: Regular rate and rhythm without murmurs, gallops, or rubs. RESPIRATORY: Clear to auscultation anteriorly. GASTROINTESTINAL: Positive bowel sounds appreciated in all quadrants. Abdomen soft, nondistended. Slightly tender upon palpation of RUQ. No hepato- splenomegaly, or palpable masses. MUSCULOSKELETAL: Extremities with clubbing. No cyanosis or edema. NEUROLOGICAL: Awake and alert. No focal deficits. Normal speech. Hospital Course Patient with worsening RUQ pain and epigastric pain as well as nausea and vomiting after meals. Patient has been avoiding food in fear of nausea and vomiting. NG tube placed for decompression on 06/05. Abdominal pain differential: gastroparesis v postcholecystectomy syndrome v small bowel obstruction Labs 06/04-: WBC within normal limits CT 06/04: Status post interval recent cholecystectomy with postsurgical changes. There is an indistinct fluid collection along the adjacent liver margin which is nonspecific. This may represent his postoperative fluid. An early abscess is felt to be less likely. Short-term CT followup is recommended in 5-7 days or as clinically indicated. The stomach, small bowel, and colon demonstrate no acute abnormality. There is no free intraperitoneal air or fluid. HIDA 06/06: Status post cholecystectomy. No evidence of biliary obstruction of the [place]. EGD with biopsy 06/07: Residual food in the stomach, abnormal duodenum possible torsion versus stricture functioning is gastric outlet obstruction 06/09 Upper GI series w/small bowel follow through: The stomach is markedly distended. Contrast emptied out of the stomach with relative ease with out evidence of fold thickening or torsion. Examination of the stomach demonstrates no evidence of intraluminal mass or extrinsic compression. There are no findings of ulceration. The mucosal pattern appears normal. The duodenal bulb and sweep appear normal. The visualized small bowel is unremarkable. GI consulted; recommendations from 06/08: * Protonix 40 mg daily * Zofran PRN * Slow diet advance * Transient small bowel obstruction 2/2 to torsion or volvulus possibly relieved by EGD (per conversation w/GI Dr. De La Cruz) GS consulted; recommendations: * Torsion not likely, more likely findings due to scarring from open procedure * Soft diet recommended * Okay for discharge state patient is clear from their view Medications: * Protonix 40mg PO daily. * Zofran 4mg q6hr IV PRN nausea and vomiting. * Morphine for pain control. Has not used since 06/06 * S/p IVF @ maintenance (discontinued 06/09) Plan: - Follow-up GI recommendations - Protonix not indicated, as patient does not have evidence of GERD at this time. May be further evaluated by PCP. - Soft diet, discontinued IVF - DC likely today w/PCP - If symptoms return, see GI as needed Pt Condition on Discharge: Stable Discharge Disposition: Discharge Home Discharge Instructions DIET: Follow Instructions for: Soft Diet Additional Diet Instructions: Soft diet until follow up with PCP. Activities you can perform: Regular-No Restrictions Dunia Mejía MD R1 Jun 09, 2017 14:03
== END 2017-06-09 14:24 | disposition home or self-care (01) | DRG 382 ==
LOC: NEPE 07:44 → NEDA 12:17 → INTOOBSV 12:17 → N07A 14:32 → OBSVTOIN 06-08 08:31
PROVIDERS: ADMIT Family Medicine; ATTEND Family Medicine
PROC: 0DB98ZX Excision of Duodenum, Via Natural or Artificial Opening Endoscopic, Diagnostic (ICD-10-PCS; principal; 2017-06-07 12:05)
DX: K31.5 Obstruction of duodenum (principal); I10 Essential (primary) hypertension; E16.2 Hypoglycemia, unspecified; E78.5 Hyperlipidemia, unspecified; G40.909 Epilepsy, unspecified, not intractable, without status epilepticus; K21.9 Gastro-esophageal reflux disease without esophagitis; Z86.73 Personal history of transient ischemic attack (TIA), and cerebral infarction without residual deficits; Z87.891 Personal history of nicotine dependence; Z90.49 Acquired absence of other specified parts of digestive tract
CPT/HCPCS: 71046; 74177; 74245; 76937; 78227; 80048; 80053; 82948; 83690; 85025; 85027; 88305; 93005; 96361; 96374; 96375; A9537; J1644; J1650; J1885; J2270; J2405; J2805; J3480; J7030; Q9967